=== PATIENT | male | born 1945 ===

== ENCOUNTER → 2017-08-19 | Outpatient (CLI) | payer MEDICARE, OTHER, SELFPAY | PROVIDERS: Family Provider Emergency Medicine; Visit Provider Specialist | DX: R41.3 Other amnesia (principal); G93.49 Other encephalopathy; Z87.898 Personal history of other specified conditions | CPT/HCPCS: 70551 ==

== ENCOUNTER → 2017-11-03 12:20 | Outpatient (CLI) | payer MEDICARE, OTHER, SELFPAY ==
[2017-11-03 12:46] LABS: Basophils # 0.1 K/mm3 (0-0.2); Basophils % 0.7 % (0.1-2.0); Eosinophils # 0.4 K/mm3 (0.0-0.4); Eosinophils % 4.9 % (0.1-12.0); Hemoglobin 15.5 g/dL (14.1-18.0); Lymphocytes # 3.7 K/mm3 (0.7-4.5); Lymphocytes % 42.5 K/mm3 (10-50); Mean Corpuscular HGB Conc 32.3 g/dL (31.8-35.4); Mean Corpuscular Volume 92.9 fl (80-94); Monocytes # 0.4 K/mm3 (0.1-1.0); Monocytes % 4.3 % (1.7-9.3); Neutrophils # 4.1 K/mm3 (1.8-7.8); Neutrophils % 47.7 % (37.0-80.0); Platelet Count 312 K/mm3 (142-424); Red Blood Count 5.17 M/mm3 (4.60-6.20); White Blood Count 8.6 K/mm3 (4.8-10.8)
[2017-11-03 13:21] LABS: Alanine Aminotransferase 53 U/L (12-78); Albumin Level 3.9 gm/dL (3.4-5.0); Alkaline Phosphatase 94 U/L (46-116); Anion Gap 12.7 mEq/L (5-15); Aspartate Amino Transferase 27 U/L (15-37); Bilirubin,Total 0.1 mg/dL (0.2-1.0); Blood Urea Nitrogen 13 mg/dL (7-18); Calcium 8.9 mg/dL (8.5-10.1); Carbon Dioxide 27 mmol/L (21.0-32.0); Chloride 100 mmol/L (98-107); Creatinine,Serum 0.89 mg/dL (0.70-1.30); Estimated Glomerular Filt Rate 84 ml/min (>60); GFR (African American) 101 ML/MIN (>60); Globulin 3.9 gm/dl (1.3-3.2); Glucose 100 mg/dL (74-106); Potassium 4.7 mmoL/L (3.5-5.1); Sodium 135 mmol/L (136-145); Thyroid Stimulating Hormone 3.45 uIU/ml (0.358-3.740); Total Protein,Serum 7.8 gm/dL (6.4-8.2)
[2017-11-03 14:36] LABS: Erythrocyte Sedimentation Rate 16 mm/hr (0-20)
[2017-11-04 15:22] LABS: Folate, Hemolysate 592.9 ng/mL (Not Estab.)
[2017-11-05 12:01] LABS: Folate, RBC 1357 ng/mL (>498); Hematocrit 43.7 % (37.5-51.0); Rapid Plasma Reagin Ab Titer Non Reactive (NonRea<1:1); Vitamin B12 471 pg/mL (232-1245)
[2017-11-07 18:35] LABS: Vitamin B1 146.4 nmol/L (66.5-200.0)
== END ==
PROVIDERS: Nurse Practitioner Family; Visit Provider Specialist
DX: R41.3 Other amnesia (principal)
CPT/HCPCS: 36415; 80053; 82607; 84425; 84443; 85025; 85651; 86592

== ENCOUNTER → 2017-11-09 07:51 | Outpatient (CLI) | payer MEDICARE, OTHER, SELFPAY ==
--- NOTE | 2017-11-09 07:54 | MR_ITS ---
MR cervical spine wo con, MR 3-d myelogram/MRCP Ordering Physician: Doris Kyle MD Patient Age: 72 years: Male HISTORY: ITS.REASON: spinal stenosis Unsteady gait. Confusion. Head MRI brain and July the noted C-spine features. TECHNIQUE: Sagittal STIR, T1, T2, axial T1 and T2. On 1.5T Siemens wide bore MRI. 3-D MR myelogram image set obtained & performed on MRI workstation. Additional sagittal thin section T2 weighted dataset obtained from this latter acquisition as well (---76 CPT) COMPARISON :No previous relevant studies FINDINGS Cranial cervical junction is intact.. C2/3: disc unremarkable C3/4. Marked degenerative disc space narrowing, with ~3 mm degenerative anterolisthesis of C3 on C4. Additional mixed Disc protrusion with some associated posterior spurring is seen to the left.-. This Moderate mixed leftward disc protrusion effaces thecal sac on left and flattens the cervical cord, most pronounced to the leftward.. Moderate Spinal stenosis with central canal narrowing just less than 7 mm AP. Foraminal encroachment and stenosis most evident to the left. Upper normal signal at the cervical cord. Moderate bilateral Facet hypertrophy , also contributes to foraminal stenosis on left, more than right. C4/5. posterior endplate spurring observed most evident to the right... Moderate/generous hard disc effaces thecal sac and the right aspect of the cervical cord, & encroaches upon the right recess and narrows right foramen. Mild facet hypertrophy also contributes to the foraminal encroachment/stenosis on right more than left. Mild/moderate spinal stenosis at this level as well most evident rightward C5-C6. Incomplete segmentation with partial fusion at the C5/6 vertebral body level.. Smooth posteriorly appearance at this level. Adequate spinal canal at this level with no focal remarkable foraminal encroachment. C6/7. Mild to moderate Central disc protrusion- abuts cervical cord with only subtle mild effacement of the cervical cord at midline. There is prominent facet and posterior element hypertrophy just above this level which notably indents the posterior aspect of the thecal sac at 2 near the spinal canal at this level. With yields overall moderate central canal stenosis. C7/T1 disc intact T1/T2 disc intact. T2/T3. Scant central bulge. 3-D MR myelogram image set on demonstrates the indentation upon the thecal sac reflecting spinal stenosis most evident at C3/4 & less evident C4/5 at the upper C-spine.. There is also notable/ moderate spinal stenosis at C 6/7 which appears to be mainly due to the posterior indentation upon the thecal sac IMPRESSION a plain films may be helpful for correlation Cervical spondylosis with Multilevel degenerative disc changes, & facet hypertrophy . Multilevel Spinal stenosis, most pronounced C3/4 & less evident C4/5 at upper C-spine with also moderate spinal stenosis at C 6/7. C3/4. Degenerative Retrolisthesis C3 on 4, with additional leftward Mixed disc protrusion. Resulting Moderate central canal stenosis with foraminal encroachment left> right C4/5. Moderate-generous rightward Hard . Rightward spurring yields generous right foraminal encroachment. Overall Mild to moderate central canal stenosis C6/7:. Mild Central disc bulge, along with more prominent posterior element indentation/narrowing at posterior thecal sac just above this disc level..- Together these features yield moderate central canal stenosis C6/7 Incomplete segmentation C5-C6
== END ==
PROVIDERS: Family Provider Emergency Medicine; PCP Emergency Medicine; Visit Provider Specialist
DX: R41.3 Other amnesia; M48.02 Spinal stenosis, cervical region; M48.00 Spinal stenosis, site unspecified
CPT/HCPCS: 72141; 76376

== ENCOUNTER 2017-11-23 08:51 | Emergency (ER) | payer MEDICARE, OTHER, SELFPAY ==
[2017-11-23 08:56] VITALS: BP 125/77; PULSE 98; RESP 20; TEMP 37.1; O2SAT 95; BMI 20.3
--- NOTE | 2017-11-23 09:03 | XR_ITS ---
XR chest 2V HISTORY: ITS.REASON: dyspnea ORDERING PHYSICIAN: PATIENT AGE: 72 years COMPARISON: 11/14/2015 FINDINGS: The cardiomediastinal silhouette and pulmonary vascularity are within normal limits. There remains hyperinflation with attenuation of peripheral pulmonary vessels consistent with obstructive chronic bronchitis. Faint parenchymal opacity once again noted in the left midlung overlying the fifth rib anteriorly nonspecific and could be due to summation artifact, small nodule, or parenchymal fibrotic change.. No acute bony abnormalities. IMPRESSION: 1. COPD. 2. Persistent small parenchymal opacity left midlung somewhat less apparent and could be due to overlying summation density or small pulmonary nodule. Continued follow-up recommended
[2017-11-23 09:41] LABS: Basophils # 0.1 K/mm3 (0-0.2); Basophils % 0.7 % (0.1-2.0); Eosinophils # 0.1 K/mm3 (0.0-0.4); Eosinophils % 1.2 % (0.1-12.0); Hematocrit 43.8 % (42.0-52.0); Hemoglobin 14.7 g/dL (14.1-18.0); Lymphocytes # 2.5 K/mm3 (0.7-4.5); Lymphocytes % 26.9 K/mm3 (10-50); Mean Corpuscular HGB Conc 33.6 g/dL (31.8-35.4); Mean Corpuscular Hemoglobin 29.9 pg (27.0-31.2); Mean Corpuscular Volume 89.2 fl (80-94); Mean Platelet Volume 7.3 fl (7.4-10.4); Monocytes # 0.7 K/mm3 (0.1-1.0); Monocytes % 7.7 % (1.7-9.3); Neutrophils # 5.9 K/mm3 (1.8-7.8); Neutrophils % 63.6 % (37.0-80.0); Platelet Count 293 K/mm3 (142-424); Red Blood Count 4.92 M/mm3 (4.60-6.20); Red Cell Distribution Width 12.8 % (11.5-17.5); White Blood Count 9.3 K/mm3 (4.8-10.8)
[2017-11-23 09:51] LABS: Alanine Aminotransferase 56 U/L (12-78); Albumin Level 4.1 gm/dL (3.4-5.0); Albumin/Globulin Ratio 1.1 (1.1-1.8); Alkaline Phosphatase 96 U/L (46-116); Aspartate Amino Transferase 40 U/L (15-37); Bilirubin,Total 0.3 mg/dL (0.2-1.0); Blood Urea Nitrogen 12 mg/dL (7-18); Carbon Dioxide 26 mmol/L (21.0-32.0); Chloride 93 mmol/L (98-107); Creatinine Clearance Estimated 63 mL/min (0-300); Creatinine,Serum 0.96 mg/dL (0.70-1.30); Estimated Glomerular Filt Rate 77 ml/min (>60); GFR (African American) 93 ML/MIN (>60); Globulin 3.9 gm/dl (1.3-3.2); Glucose 101 mg/dL (74-106); Sodium 127 mmol/L (136-145)
[2017-11-23 09:56] LABS: Strep Scrn Group A (Rapid) Negative (Negative)
[2017-11-23 10:22] VITALS: BP 135/69; PULSE 93; RESP 16; TEMP 36.5; O2SAT 95
--- NOTE | 2017-11-23 10:42 | [facility].EDGENADL ---
ED Disposition Clinical Impression: Acute bronchitis Qualifiers: Bronchitis organism: unspecified organism Qualified Code(s): J20.9 - Acute bronchitis, unspecified Disposition: Home, Self-Care Condition on Discharge: Good Instructions: DI for Acute Bronchitis Additional Instructions: Please take antibiotics prescribed as directed, follow-up with PCP if not better within 2 days. If unable to see her family doctor and getting worse, please return promptly to this emergency room for reevaluation. Prescriptions: Amoxicillin/Potassium Clav [Augmentin 875-125 Tablet] 1 tab PO Q12H #20 tab Referrals: Lance Dunlap MD [Primary Care Provider] - Time of Disposition: 10:42 - Critical Care Critical Care Time: No Attestation: On 11/23/17, the high probability of a clinically significant, sudden or life threatening deterioration of the following system(s) required my full and direct attention, intervention and personal management. The time I documented below is in addition to time spent performing reported procedures but includes the following listed in this critical care notation. Medical Decision Making - Medical Records Medical records reviewed: Yes: I reviewed the patient's medical records. - [place] Inquiry Pt receiving controlled substance: No Vital Signs: 11/23/17 08:56 11/23/17 10:22 11/23/17 10:53 Temperature 98.8 F 97.7 F 98.5 F Temperature Source Oral Oral Temporal Artery Scan Pulse Rate 80 Pulse Rate [Right Radial] 98 H 93 H Respiratory Rate 20 16 14 Blood Pressure 132/70 Blood Pressure [Right Arm] 125/77 135/69 Blood Pressure Mean [Right Arm] 93 91 Blood Pressure Source Automatic Cuff Blood Pressure Source [Right Arm] Automatic Cuff Automatic Cuff Blood Pressure Position Sitting Blood Pressure Position [Right Arm] Sitting Supine 02 Sat by Pulse Oximetry 95 95 Oxygen Delivery Method Room Air Room Air Room Air - Lab Data Lab results reviewed: Yes: I reviewed the patient's lab results. Lab Results 11/23/17 09:15: Influenza Type A Ag Negative, Influenza Type B Ag Negative, Group A Strep Rapid Negative 11/23/17 09:20: WBC 9.3, RBC 4.92, Hgb 14.7, Hct 43.8, MCV 89.2, MCH 29.9, MCHC 33.6, RDW 12.8, Plt Count 293, MPV 7.3 L, Neut % (Auto) 63.6, Lymph % (Auto) 26.9, [place] % (Auto) 7.7, Eos % (Auto) 1.2, Baso % (Auto) 0.7, Neut # (Auto) 5.9, Lymph # (Auto) 2.5, [place] # (Auto) 0.7, Eos # (Auto) 0.1, Baso # (Auto) 0.1 11/23/17 09:20: Sodium 127 L, Potassium 5.0, Chloride 93 L, Carbon Dioxide 26, Anion Gap 13.0, BUN 12, Creatinine 0.96, Estimated Creat Clear 63, Estimated GFR 77, Est GFR ( Amer) 93, Glucose 101, Calcium 9.0, Total Bilirubin 0.3, AST 40 H, ALT 56, Alkaline Phosphatase 96, Total Protein 8.0, Albumin 4.1, Globulin 3.9 H, Albumin/Globulin Ratio 1.1 Result diagrams: 11/23/17 09:20 11/23/17 09:20 Orders (Tests/Meds): ED MEDICATIONS Discontinued Medications Generic Name Dose Route Start Last Admin Trade Name Freq PRN Reason Stop Dose Admin Aspirin 324 mg 11/23/17 09:03 11/23/17 09:13 Aspirin 81mg Chewable Tablet PO 11/23/17 09:04 324 mg ONCE ONE Administration ORDERS Category Date Time Status Strep Screen Confirmation Stat Micro 11/23/17 09:15 Received - Radiology Data #1 Image(s): Chest Image Reviewed: Yes I reviewed the patient's radiology results, Yes I have reviewed radiologist's interpretation Preliminary Findings: Normal/NAD [place] [id number] [place] [address] XRay Report Signed Patient: Timbo Marino MR#: [id number] : 1945 Acct:[id number] Age/Sex: 72 / M ADM Date: 11/23/17 Loc: ER Attending Dr: Ordering Physician: Konstantin Yoder MD Date of Service: 11/23/17 Procedure(s): XR chest 2V Accession Number(s): [id number] cc: Kishan Prieto MD; Lance Dunlap MD~ XR chest 2V HISTORY: ITS.REASON: dyspn
--- NOTE | 2017-11-23 10:45 | ED_ITS ---
ED Disposition Clinical Impression: Acute bronchitis Qualifiers: Bronchitis organism: unspecified organism Qualified Code(s): J20.9 - Acute bronchitis, unspecified Disposition: Home, Self-Care Condition on Discharge: Good Instructions: DI for Acute Bronchitis Additional Instructions: Please take antibiotics prescribed as directed, follow-up with PCP if not better within 2 days. If unable to see her family doctor and getting worse, please return promptly to this emergency room for reevaluation. Prescriptions: Amoxicillin/Potassium Clav [Augmentin 875-125 Tablet] 1 tab PO Q12H #20 tab Referrals: Lance Dunlap MD [Primary Care Provider] - Time of Disposition: 10:42 - Critical Care Critical Care Time: No Attestation: On 11/23/17, the high probability of a clinically significant, sudden or life threatening deterioration of the following system(s) required my full and direct attention, intervention and personal management. The time I documented below is in addition to time spent performing reported procedures but includes the following listed in this critical care notation. Medical Decision Making - Medical Records Medical records reviewed: Yes: I reviewed the patient's medical records. - [place] Inquiry Pt receiving controlled substance: No Vital Signs: 11/23/17 08:56 11/23/17 10:22 11/23/17 10:53 Temperature 98.8 F 97.7 F 98.5 F Temperature Source Oral Oral Temporal Artery Scan Pulse Rate 80 Pulse Rate [Right Radial] 98 H 93 H Respiratory Rate 20 16 14 Blood Pressure 132/70 Blood Pressure [Right Arm] 125/77 135/69 Blood Pressure Mean [Right Arm] 93 91 Blood Pressure Source Automatic Cuff Blood Pressure Source [Right Arm] Automatic Cuff Automatic Cuff Blood Pressure Position Sitting Blood Pressure Position [Right Arm] Sitting Supine 02 Sat by Pulse Oximetry 95 95 Oxygen Delivery Method Room Air Room Air Room Air - Lab Data Lab results reviewed: Yes: I reviewed the patient's lab results. Lab Results 11/23/17 09:15: Influenza Type A Ag Negative, Influenza Type B Ag Negative, Group A Strep Rapid Negative 11/23/17 09:20: WBC 9.3, RBC 4.92, Hgb 14.7, Hct 43.8, MCV 89.2, MCH 29.9, MCHC 33.6, RDW 12.8, Plt Count 293, MPV 7.3 L, Neut % (Auto) 63.6, Lymph % (Auto) 26.9, [place] % (Auto) 7.7, Eos % (Auto) 1.2, Baso % (Auto) 0.7, Neut # (Auto) 5.9 , Lymph # (Auto) 2.5, [place] # (Auto) 0.7, Eos # (Auto) 0.1, Baso # (Auto) 0.1 11/23/17 09:20: Sodium 127 L, Potassium 5.0, Chloride 93 L, Carbon Dioxide 26, Anion Gap 13.0, BUN 12, Creatinine 0.96, Estimated Creat Clear 63, Estimated GFR 77, Est GFR ( Amer) 93, Glucose 101, Calcium 9.0, Total Bilirubin 0.3 , AST 40 H, ALT 56, Alkaline Phosphatase 96, Total Protein 8.0, Albumin 4.1, Globulin 3.9 H, Albumin/Globulin Ratio 1.1 Result diagrams: 11/23/17 09:20 11/23/17 09:20 Orders (Tests/Meds): ED MEDICATIONS Discontinued Medications Generic Name Dose Route Start Last Admin Trade Name Monserrat PRN Reason Stop Dose Admin Aspirin 324 mg 11/23/17 09:03 11/23/17 09:13 Aspirin 81mg Chewable Tablet PO 11/23/17 09:04 324 mg ONCE ONE Administration ORDERS Category Date Time Status Strep Screen Confirmation Stat Micro 11/23/17 09:15 Received - Radiology Data #1 Image(s): Chest Image Reviewed: Yes I reviewed the
[2017-11-23 10:53] VITALS: BP 132/70; PULSE 80; RESP 14; TEMP 36.9; O2SAT 98
== END 2017-11-23 10:54 | disposition home or self-care (01) ==
PROVIDERS: Emergency Provider Emergency Medicine; Family Provider Emergency Medicine; PCP Emergency Medicine
DX: J20.9 Acute bronchitis, unspecified (principal); F17.210 Nicotine dependence, cigarettes, uncomplicated; G30.9 Alzheimer's disease, unspecified; F02.80 Dementia in other diseases classified elsewhere, unspecified severity, without behavioral disturbance, psychotic disturbance, mood disturbance, and anxiety
CPT/HCPCS: 71046; 80053; 85025; 87275; 87276; 87430; 99283

== ENCOUNTER → 2018-09-27 13:36 | Outpatient (CLI) | payer MEDICARE, OTHER, SELFPAY ==
--- NOTE | 2018-09-27 13:48 | XR_ITS ---
XR chest 2V HISTORY: ITS.REASON: abnormal prior imaging ORDERING PHYSICIAN: Doris Kyle MD PATIENT AGE: 73 years COMPARISON: None FINDINGS: The cardiomediastinal silhouette and pulmonary vascularity are within normal limits. The lungs are clear without infiltrates, suspicious nodules, or pleural effusions. Small nodular density noted over the anterior aspect of both right and left fifth ribs and may be due to nipple shadows. No acute finding No acute bony abnormalities. IMPRESSION: Negative chest, no acute finding
== END ==
PROVIDERS: PCP Emergency Medicine; Visit Provider Specialist
DX: F03.90 Unspecified dementia, unspecified severity, without behavioral disturbance, psychotic disturbance, mood disturbance, and anxiety (principal); F17.200 Nicotine dependence, unspecified, uncomplicated; J44.9 Chronic obstructive pulmonary disease, unspecified; R93.89 Abnormal findings on diagnostic imaging of other specified body structures
CPT/HCPCS: 71046

== ENCOUNTER → 2020-10-29 14:43 | Outpatient (CLI) | payer MEDICARE, OTHER, SELFPAY ==
[2020-10-29 16:03] LABS: Alanine Aminotransferase 119 U/L (12-78); Albumin Level 3.7 g/dl (3.5-5.0); Albumin/Globulin Ratio 1.4 (1.1-1.8); Alkaline Phosphatase 298 U/L (38-126); Anion Gap 10.2 mEq/L (5-15); Aspartate Amino Transferase 113 U/L (17-59); Basophils # 0.1 K/mm3 (0-0.2); Basophils % 0.8 % (0.1-2.0); Bilirubin,Total 0.7 mg/dl (0.2-1.3); Blood Urea Nitrogen 12 mg/dl (9-20); Calcium 9.2 mg/dl (8.4-10.2); Carbon Dioxide 25 mmol/L (22.0-30.0); Chloride 107 mmol/L (98-107); Chol/HDL Ratio 7.2 (1-3.5); Cholesterol 209 mg/dl (140-200); Eosinophils % 0.5 % (0.1-12.0); Estimated Glomerular Filt Rate 94 ml/min (>60); GFR (African American) 114 ML/MIN (>60); Globulin 2.6 g/dL (1.3-3.2); Glucose 109 mg/dl (74-100); HDL Cholesterol 29 mg/dl (40-60); Hematocrit 42.2 % (42.0-52.0); Hemoglobin 13.5 g/dL (14.1-18.0); Lymphocytes # 4.5 K/mm3 (0.7-4.5); Lymphocytes % 55.2 % (10-50); Mean Corpuscular HGB Conc 31.9 g/dL (31.8-35.4); Mean Corpuscular Hemoglobin 28.7 pg (27.0-31.2); Mean Corpuscular Volume 89.9 fl (80-94); Monocytes # 0.4 K/mm3 (0.1-1.0); Monocytes % 4.3 % (1.7-9.3); Neutrophils # 3.2 K/mm3 (1.8-7.8); Neutrophils % 39.3 % (37.0-80.0); Platelet Count 236 K/mm3 (142-424); Potassium 4.2 mmoL/L (3.5-5.1); Red Blood Count 4.69 M/mm3 (4.60-6.20); Red Cell Distribution Width 14.7 % (11.5-17.5); Sodium 138 mmol/L (136-145); Total Protein,Serum 6.3 g/dl (6.3-8.2); Triglycerides 193 mg/dl (30-150); VLDL Cholesterol 39 mg/dL (0-40); White Blood Count 8.1 K/mm3 (4.8-10.8)
[2020-10-29 16:11] LABS: MANUAL DIFFERENTIAL MANUAL DIFFERENTIAL (MANUAL DIFF)
[2020-10-29 16:14] LABS: Direct LDL Cholesterol 137.94 mg/dL (100-129)
[2020-10-29 16:20] LABS: Free T4 (Free Thyroxine) 1.39 ng/dl (0.78-2.19)
[2020-10-29 16:33] LABS: Thyroid Stimulating Hormone 4.06 uIU/mL (0.465-4.68)
[2020-10-29 20:35] LABS: Lymphocytes % 35 % (10-50); Monocytes % 16 % (2-9); Neutrophils % 49 % (42-76); Platelet Estimate Normal; RBC Morphology Normal; Total Cells Counted 100
== END ==
PROVIDERS: Visit Provider Emergency Medicine
DX: I49.9 Cardiac arrhythmia, unspecified (principal); E78.5 Hyperlipidemia, unspecified
CPT/HCPCS: 80053; 80061; 84439; 84443; 85007; 85025

== ENCOUNTER → 2020-11-02 09:46 | Outpatient (CLI) | payer MEDICARE, OTHER, SELFPAY ==
--- NOTE | 2020-11-02 09:52 | XR_ITS ---
PROCEDURE: XR CHEST 2V CLINICAL HISTORY: COPD Shortness of air COMPARISON: CR CXR2V XR chest 2V from 11/23/2017 CR CXR2V XR chest 2V from 09/27/2018 CR XR CHEST 2V from 11/15/2019 FINDINGS: The cardiomediastinal silhouette and pulmonary vascularity are within normal limits. Hyperinflation with attenuation of the peripheral pulmonary vessels consistent with COPD. There has been interval development of a small right pleural effusion. The remaining lungs are clear. No acute bony abnormalities. IMPRESSION: Small right pleural effusion with COPD Dictated by: Kishan Prieto MD 11/02/2020 11:05 Kishan Prieto MD in [place] 11/02/2020 11:05
== END ==
PROVIDERS: PCP Emergency Medicine; Visit Provider Emergency Medicine
DX: J44.9 Chronic obstructive pulmonary disease, unspecified (principal)
CPT/HCPCS: 71046

== ENCOUNTER → 2020-11-09 09:24 | Outpatient (CLI) | payer MEDICARE, OTHER, SELFPAY ==
--- NOTE | 2020-11-09 09:31 | US_ITS ---
PROCEDURE: US LIVER CLINICAL INDICATION: elevated liver enzymes COMPARISON: No exams were available for comparison FINDINGS: PANCREAS: Unremarkable. No obvious mass or abnormal fluid collection. No ductal dilatation LIVER: No focal liver lesions demonstrated. Homogeneous echogenicity. No intrahepatic biliary ductal dilatation evident. There is appropriate direction of blood flow within a non dilated portal vein RIGHT KIDNEY: Unremarkable. Normal size and echogenicity. No hydronephrosis GALLBLADDER: No gallstones, gallbladder wall thickening, pericholecystic fluid, or biliary dilatation. Incidental note made of right pleural effusion IMPRESSION: Right pleural effusion Otherwise negative right upper quadrant ultrasound Dictated by: Kishan Prieto MD 11/09/2020 17:28 Kishan Prieto MD in [place] 11/09/2020 17:28
[2020-11-10 08:34] LABS: Hep A Ab, IgM Negative (Negative); Hepatitis B Core Antibody IgM Negative (Negative); Hepatitis B Surface Antigen Negative (Negative)
[2020-11-10 09:35] LABS: Hepatitis C Antibody >11.0 s/co ratio (0.0-0.9)
== END ==
PROVIDERS: PCP Emergency Medicine; Visit Provider Emergency Medicine
DX: R74.8 Abnormal levels of other serum enzymes (principal); R53.83 Other fatigue
CPT/HCPCS: 36415; 76705; 80074

== ENCOUNTER → 2020-11-19 10:07 | Outpatient (CLI) | payer MEDICARE, OTHER, SELFPAY ==
[2020-11-23 11:12] LABS: HCV Genotype Charge YES; Hepatitis C Genotype 1a (.)
== END ==
PROVIDERS: Visit Provider Emergency Medicine
DX: B19.20 Unspecified viral hepatitis C without hepatic coma (principal)
CPT/HCPCS: 36415; 87522; 87902

== ENCOUNTER → 2021-02-13 10:16 | Outpatient (CLI) | payer MEDICARE, OTHER, SELFPAY ==
[2021-02-16 03:09] LABS: Anion Gap 21.2 mEq/L (5-15); Blood Urea Nitrogen 20 mg/dl (9-20); Carbon Dioxide 16 mmol/L (22.0-30.0); Chloride 107 mmol/L (98-107); Creatinine,Serum 0.78 mg/dl (0.66-1.25); Estimated Glomerular Filt Rate 97 ml/min (>60); GFR (African American) 117 ML/MIN (>60); Potassium 4.2 mmoL/L (3.5-5.1); Sodium 140 mmol/L (136-145)
[2021-02-16 03:10] LABS: Calcium 8.8 mg/dl (8.4-10.2); Glucose 139 mg/dl (74-100)
== END ==
PROVIDERS: Visit Provider Emergency Medicine
DX: Z01.818 Encounter for other preprocedural examination (principal)
CPT/HCPCS: 36415; 80048

== ENCOUNTER → 2021-02-14 09:50 | Outpatient (CLI) | payer MEDICARE, OTHER, SELFPAY ==
--- NOTE | 2021-02-14 10:08 | CT_ITS ---
PROCEDURE: CT ABDOMEN PELVIS W CON CLINICAL INDICATION: upset stomach COMPARISON: No exams were available for comparison TECHNIQUE: IV Contrast: 75ML Isovue 370 Oral Contrast None Axial images obtained with sagittal and coronal reformats. All CT scans at the facility use one or more dose reduction, viz: automated exposure control, ma/kV adjustment per patient size (including targeted exams where dose is matched to indication, i.e. head), or iterative reconstruction technique. FINDINGS: There are moderate to large right and moderate left bilateral pleural effusions with bibasilar compressive atelectasis. Moderate diffuse fatty infiltration of the liver. Spleen is mildly enlarged measuring 16 centimeters in length. Few gallstones are present. Gallbladder appears mildly distended. Pancreas and adrenal glands are normal. Small right renal cortical cyst. No hydronephrosis. No distended large or small bowel or bowel wall thickening. No free intraperitoneal air. Small amount of nonspecific free fluid in the pelvis. Bladder is normal. Prostate gland and seminal vesicles appear unremarkable. Appendix is not definitively seen. No inguinal or femoral hernia. There is no enlarged iliac or inguinal chain lymph node. Some diffuse degenerative change of the lumbar spine is present. No acute bony abnormality. IMPRESSION: Moderate to large right and moderate left bilateral pleural effusions with bibasilar compressive atelectasis. Mild splenomegaly. Moderate diffuse fatty infiltration of the liver. Cholelithiasis. Small right renal cortical cyst. No hydronephrosis. Small amount of nonspecific free fluid in the pelvis. No free intraperitoneal air. Some calcification of the abdominal aorta without aneurysm. Dictated by: Domingo More MD 02/14/2021 12:08 Domingo More MD in [facility] 02/14/2021 12:08
== END ==
PROVIDERS: PCP Emergency Medicine; Visit Provider Emergency Medicine
DX: K30 Functional dyspepsia (principal); R10.9 Unspecified abdominal pain; Z86.19 Personal history of other infectious and parasitic diseases
CPT/HCPCS: 74177; Q9967

== ENCOUNTER → 2021-03-13 07:38 | Outpatient (CLI) | payer MEDICARE, OTHER, SELFPAY ==
--- NOTE | 2021-03-13 07:39 | CA_ITS ---
APPROVED REPORT EXAM: Comprehensive 2D, Doppler, and color-flow Echocardiogram Email Producer: Kiersten Thomas, RT(R) Ht: 5 ft 9 in Wt: 119lbs BSA: 1.66 BP: 123/74 mmHg Indications: CP, COPD, smoker, SOB, preop, dementia, Hep C 2D Dimensions LVOT 1.85 cm (M/F) 1.5-2.5 M-Mode Dimensions RVDd 1.72 cm (0.9-2.6) LA Diam 2.61 cm (1.9-4.0) LVDd 2.63 cm (3.5-5.7) Ao Diam 3.17 cm (2.0-3.7) LVDs 1.19 cm (3.5-5.7) IVSd 0.69 cm (0.6-1.1) PWd 0.69 cm (0.6-1.1) EF (Teich) 87.00% FS 54.80% EDV (Teich) 25.30 mL ESV (Teich) 3.30 mL Left Ventricle Left atrium is normal size, left ventricle is normal size, left ventricle wall thickness is upper limit of the normal there is preserved left ventricular systolic function, visually estimated ejection fraction 55% with no regional wall motion abnormality, diastolic parameters are inconclusive. Right atrium and right ventricle are normal size and contractility. Aortic Valve Aortic valve is minimally thickened and fibrosed, there is no aortic stenosis. There is no aortic insufficiency. Mitral Valve Mitral valve is grossly normal, there is trace mitral regurgitation. Tricuspid Valve Tricuspid grossly normal, there is trace tricuspid regurgitation, tricuspid regurgitation jet velocity is inadequate for calculation of the right ventricular systolic pressure. Pulmonic Valve Pulmonic valve is poorly visualized. Great Vessels Aortic root is normal size. Pericardium No significant pericardial effusion noted. Conclusion 1. Normal left ventricular size, preserved left ventricular systolic function. Visually estimated ejection fraction 55% with no regional wall motion abnormality, diastolic parameters are inconclusive. 2. Trace mitral and tricuspid regurgitation. 3. No significant pericardial effusion noted. Electronically signed by : Oscar Cassidy, 03/14/2021 15:02:24
--- NOTE | 2021-03-13 08:36 | XR_ITS ---
PROCEDURE: XR CHEST 2V CLINICAL HISTORY: pleural effusions COMPARISON: CR CXR2V XR chest 2V from 09/27/2018 CR XR CHEST 2V from 11/15/2019 CR XR CHEST 2V from 11/02/[address] ABDOMEN PELVIS W CON from 02/14/2021 FINDINGS: The cardiomediastinal silhouette and pulmonary vascularity are within normal limits. Medium to large right pleural effusion and medium-sized left pleural effusion with bibasilar atelectatic changes. Probably unchanged from recent abdomen CT of 02/14/2021. Upper lobes are clear. . IMPRESSION: Bilateral pleural effusions with atelectatic changes in the lung bases Dictated by: Kishan Prieto MD 03/13/2021 09:54 Kishan Prieto MD in [place] 03/13/2021 09:54
--- NOTE | 2021-03-13 08:36 | US_ITS ---
PROCEDURE: US GALLBLADDER CLINICAL INDICATION: gallstones COMPARISON: CT CT ABDOMEN PELVIS W CON from 02/14/2021 FINDINGS: Pancreas: Unremarkable/Not well seen Liver: There is mild diffuse coarse echogenicity of the liver nonspecific.. Portal vein is upper limits at 13 mm. There is some turbulent blood flow in the portal vein. There is a nonspecific hyperechoic focus in the liver the just superior to the gallbladder measuring 18 x 11 mm. Right kidney: Unremarkable appearing. No hydronephrosis. Gallbladder: Numerous comet tail artifact noted along the gallbladder wall consistent with adenomyomatosis/cholesterolosis. No gallstones are apparent. No gallbladder wall thickening or pericholecystic fluid. Common bile duct is normal at 3 mm. There is a right-sided pleural effusion. IMPRESSION: No gallstones apparent. Adenomyomatosis with multiple areas of cholesterolosis. Coarse echogenicity of the liver. Portal vein is upper limits of normal with some turbulent flow but overall with appropriate direction. Nonspecific hyperechoic focus of the liver possibly due to a hemangioma Right pleural effusion Dictated by: Kishan Prieto MD 03/13/2021 12:30 Kishan Prieto MD in [place] 03/13/2021 12:30
== END ==
PROVIDERS: PCP Emergency Medicine; Visit Provider Emergency Medicine
DX: Z01.818 Encounter for other preprocedural examination (principal); Z72.0 Tobacco use; R10.10 Upper abdominal pain, unspecified; J44.9 Chronic obstructive pulmonary disease, unspecified
CPT/HCPCS: 71046; 76705; 93306

== ENCOUNTER → 2021-03-28 12:28 | Outpatient (CLI) | payer MEDICARE, OTHER, SELFPAY ==
[2021-03-28 13:10] LABS: Prothrombin Time 11.3 seconds (10.1-12.5)
[2021-03-28 13:22] LABS: INR 0.95 (0.9-1.1)
[2021-03-28 13:57] LABS: Hematocrit 34.6 % (42.0-52.0); Hemoglobin 11.6 g/dL (14.1-18.0); Mean Corpuscular HGB Conc 33.5 g/dL (31.8-35.4); Mean Corpuscular Volume 86.5 fl (80-94); Platelet Count 169 K/mm3 (142-424); Red Cell Distribution Width 14.8 % (11.5-17.5); White Blood Count 4.4 K/mm3 (4.8-10.8)
== END ==
PROVIDERS: Visit Provider Physician Assistant
DX: B18.2 Chronic viral hepatitis C (principal); R79.1 Abnormal coagulation profile
CPT/HCPCS: 36415; 80053; 85014; 85018; 85048; 85049; 85610; 87522

== ENCOUNTER → 2021-04-01 09:48 | Outpatient (CLI) | payer MEDICARE, OTHER, SELFPAY ==
--- NOTE | 2021-04-01 09:53 | US_ITS ---
PROCEDURE: US THORACENTESIS CLINICAL INDICATION: pleural effusion - RIGHT COMPARISON: No exams were available for comparison TECHNIQUE: Informed consent was obtain prior to procedure. After appropriate Time out, under aseptic conditions and local anesthesia with 1% buffered lidocaine using sonographic guidance a 6 [place] Sxtu-V-Qsuplbbc catheter was inserted into the largest pocket of fluid localized in the right posterior chest at the posterior axillary line.. Approximately 1300 mL of serous fluid was drained. The patient began coughing and complaining of chest pain and discomfort. Although the pleural fluid was not completely drained, the catheter was removed due to patient discomfort and continuing cough as there was fear that this may cause a pneumothorax. The patient tolerated the procedure well and left the radiology suite in stable condition. Post thoracentesis radiograph showed no evidence of pneumothorax. FINDINGS: Large right pleural effusion IMPRESSION: Successful sonographic guided paracentesis without complication. Dictated by: Kishan Prieto MD 04/01/2021 17:44 Kishan Prieto MD in [place] 04/01/2021 17:44
--- NOTE | 2021-04-01 12:35 | XR_ITS ---
PROCEDURE: XR CHEST 2V CLINICAL HISTORY: POST THOROCENTESIS COMPARISON: CR XR CHEST 2V from 11/15/2019 CR XR CHEST 2V from 11/02/2020 CR XR CHEST 2V from 03/13/2021 FINDINGS: There has been interval thoracentesis on the right side. Right pleural effusion is decreased in size. There is no evidence of pneumothorax. There are medium-sized bilateral pleural effusions. No acute bony abnormalities. IMPRESSION: Status post right thoracentesis with no evidence of pneumothorax. There are medium-sized residual bilateral effusions. Dictated by: Kishan Prieto MD 04/01/2021 12:50 Kishan Prieto MD in [place] 04/01/2021 12:50
--- NOTE | 2021-04-01 15:30 | XR_ITS ---
PROCEDURE: XR CHEST 2V CLINICAL HISTORY: Thoracentesis follow-up COMPARISON: CR XR CHEST 2V from 11/02/2020 CR XR CHEST 2V from 03/13/2021 CR XR CHEST 2V from 04/01/2021 FINDINGS: Status post right-sided thoracentesis. No evidence of pneumothorax. Small to medium-sized bilateral pleural effusions persists. There is some increasing consolidation in the right lower lobe which may be related to re-expansion edema. No acute bony abnormalities. IMPRESSION: No evidence of pneumothorax status post right-sided thoracentesis. Medium-sized bilateral pleural effusions Developing alveolar opacification in the right lung base possibly due to re-expansion edema Dictated by: Kishan Prieto MD 04/01/2021 16:09 Kishan Prieto MD in [facility] 04/01/2021 16:09
[2021-04-01 19:00] LABS: Appearance,Body Fld. Cloudy; Source, Body Fld. Thoracentesis Fluid
[2021-04-01 19:01] LABS: RBC,Body Fluid < 10 cells/uL (< 10 X 10^3); TNC,Body Fluid 967 cells/uL (< 1000); Volume,Body Fld. 111.5 mL
[2021-04-01 19:04] LABS: Mononuclear WBCs,Body Fluid 97 %; Polynuclear WBC,Body Fluid 3 %
[2021-04-02 12:03] LABS: Albumin, Body Fluid 1.9 g/dL (Not Estab.); Glucose, Body Fluid 112 mg/dL (.); LD, Body Fluid 127 IU/L (.); Protein, Body Fluid 3.2 g/dL (.)
[2021-04-05 13:32] LABS: pH, Body Fluid 7.7 (Not Estab.)
== END ==
PROVIDERS: PCP Emergency Medicine; Visit Provider Internal Medicine Pulmonary Disease
DX: J90 Pleural effusion, not elsewhere classified (principal)
CPT/HCPCS: 32555; 71046; 82042; 82945; 83615; 83986; 84155; 88112; 89051

== ENCOUNTER → 2021-04-03 10:57 | Outpatient (CLI) | payer MEDICARE, OTHER, SELFPAY ==
--- NOTE | 2021-04-03 | XR_ITS ---
PROCEDURE: XR CHEST 2V CLINICAL HISTORY: POST THORACENTESIS COMPARISON: CR XR CHEST 2V from 03/13/2021 CR XR CHEST 2V from 04/01/2021 CR XR CHEST 2V from 04/01/2021 FINDINGS: Status post left-sided thoracentesis. Left pleural effusion no longer apparent. No evidence of pneumothorax. There is consolidation in the right lung base with small right effusion. There are bibasilar atelectatic changes which appears slightly worse. IMPRESSION: 1. Status post left-sided thoracentesis. No evidence of pneumothorax. 2. Right basilar consolidation with small effusion with increasing right basilar atelectasis Dictated by: Kishan Prieto MD 04/03/2021 12:52 Kishan Prieto MD in [facility] 04/03/2021 12:52
--- NOTE | 2021-04-03 11:00 | US_ITS ---
PROCEDURE: US THORACENTESIS CLINICAL INDICATION: pleural effusion - LEFT pleural effusion - LEFT shortness of breath COMPARISON: CT CT ABDOMEN PELVIS W CON from 02/14/2021 TECHNIQUE: Informed consent was obtain prior to procedure. After appropriate Time out, under aseptic conditions and local anesthesia with 1% buffered lidocaine using sonographic guidance a 6 Greek Jdta-D-Hebgjznl catheter was inserted into the lower hemithorax on the left in the posterior axillary line in the largest area of the pleural effusion. Approximately nine hundred mL of serous fluid was drained. The patient tolerated the procedure well and left the radiology suite in stable condition. FINDINGS: Large left pleural effusion which is nearly completely drained Post thoracentesis chest x-ray shows no evidence of pneumothorax. IMPRESSION: Successful sonographic guided left-sided thoracentesis without complication. Dictated by: Kishan Prieto MD 04/03/2021 16:12 Kishan Prieto MD in [place] 04/03/2021 16:12
[2021-04-03 11:39] VITALS: BMI 20.9
[2021-04-03 11:40] VITALS: BP 127/80; PULSE 93; RESP 18; TEMP 36.7; O2SAT 95
[2021-04-03 13:34] LABS: Appearance,Body Fld. Cloudy; Source, Body Fld. Thoracentesis Fluid; Volume,Body Fld. 181 mL
[2021-04-03 13:46] LABS: RBC,Body Fluid 11 cells/uL (< 10 X 10^3); TNC,Body Fluid 1697 cells/uL (< 1000)
[2021-04-03 13:57] LABS: Mononuclear WBCs,Body Fluid 97 %; Polynuclear WBC,Body Fluid 3 %
--- NOTE | 2021-04-03 15:31 | XR_ITS ---
PROCEDURE: XR CHEST 2V CLINICAL HISTORY: POST THORA Follow-up thoracentesis COMPARISON: CR XR CHEST 2V from 04/01/2021 CR XR CHEST 2V from 04/01/2021 CR XR CHEST 2V from 04/03/2021 FINDINGS: No evidence pneumothorax. There remains a small right pleural effusion with right basilar airspace disease. There are minimal atelectatic changes in the left lung base. IMPRESSION: Post thoracentesis on left with no evidence of pneumothorax Persistent small right effusion with right basilar airspace disease Dictated by: Kishan Prieto MD 04/03/2021 15:48 Kishan Prieto MD in [place] 04/03/2021 15:48
[2021-04-04 10:37] LABS: Albumin, Body Fluid 1.5 g/dL (Not Estab.); Glucose, Body Fluid 139 mg/dL (.); LD, Body Fluid 111 IU/L (.); Protein, Body Fluid 2.7 g/dL (.)
[2021-04-05 13:32] LABS: pH, Body Fluid 7.6 (Not Estab.)
== END ==
PROVIDERS: PCP Emergency Medicine; Visit Provider Internal Medicine Pulmonary Disease
DX: J90 Pleural effusion, not elsewhere classified (principal)
CPT/HCPCS: 32555; 71046; 82042; 82945; 83615; 83986; 84155; 88112; 88305; 88342; 89051

== ENCOUNTER → 2021-04-23 10:55 | Outpatient (CLI) | payer MEDICARE, OTHER, SELFPAY ==
[2021-04-23 11:38] LABS: Basophils % 0.6 % (0.1-2.0); Eosinophils # 0.1 K/mm3 (0.0-0.4); Eosinophils % 1.3 % (0.1-12.0); Hematocrit 33.5 % (42.0-52.0); Hemoglobin 10.9 g/dL (14.1-18.0); Lymphocytes # 2.5 K/mm3 (0.7-4.5); Lymphocytes % 39.5 % (10-50); Mean Corpuscular HGB Conc 32.6 g/dL (31.8-35.4); Mean Platelet Volume 8.6 fl (7.4-10.4); Monocytes # 0.2 K/mm3 (0.1-1.0); Monocytes % 3.6 % (1.7-9.3); Neutrophils # 3.5 K/mm3 (1.8-7.8); Neutrophils % 55.1 % (37.0-80.0); Platelet Count 258 K/mm3 (142-424); Red Blood Count 3.77 M/mm3 (4.60-6.20); White Blood Count 6.4 K/mm3 (4.8-10.8)
[2021-04-23 12:27] LABS: INR 0.93 (0.9-1.1)
[2021-04-29 10:06] LABS: Chloride 106 mmol/L (98-107); Potassium 3.7 mmoL/L (3.5-5.1)
[2021-04-29 10:07] LABS: Blood Urea Nitrogen 20 mg/dl (9-20); Creatinine,Serum 0.84 mg/dl (0.66-1.25); Estimated Glomerular Filt Rate 89 ml/min (>60); GFR (African American) 107 ML/MIN (>60); Glucose 103 mg/dl (74-100)
[2021-04-29 10:08] LABS: Albumin Level 3.5 g/dl (3.5-5.0); Albumin/Globulin Ratio 1.1 (1.1-1.8); Alkaline Phosphatase 158 U/L (38-126); Aspartate Amino Transferase 26 U/L (17-59); Bilirubin,Total 0.2 mg/dl (0.2-1.3); Calcium 8.9 mg/dl (8.4-10.2); Globulin 3.1 g/dL (1.3-3.2); Total Protein,Serum 6.6 g/dl (6.3-8.2)
[2021-04-29 10:11] LABS: Sodium 145 mmol/L (136-145)
[2021-04-29 10:12] LABS: Folate >= 20.00 ng/mL; Vitamin B12 443 pg/mL (239-931)
[2021-04-29 10:17] LABS: Ferritin 79 ng/ml (17.9-464)
== END ==
PROVIDERS: Physician Assistant; Visit Provider Specialist
DX: R41.3 Other amnesia (principal); B19.20 Unspecified viral hepatitis C without hepatic coma
CPT/HCPCS: 36415; 80053; 82607; 82728; 82746; 83550; 85025; 85610; 87522

== ENCOUNTER → 2021-06-06 10:41 | Outpatient (CLI) | payer MEDICARE, OTHER, SELFPAY ==
[2021-06-06 11:10] LABS: Hematocrit 36.9 % (42.0-52.0); Mean Corpuscular HGB Conc 32.6 g/dL (31.8-35.4); Mean Corpuscular Hemoglobin 29.7 pg (27.0-31.2); Platelet Count 226 K/mm3 (142-424); Red Blood Count 4.05 M/mm3 (4.60-6.20); Red Cell Distribution Width 15.5 % (11.5-17.5); White Blood Count 4.6 K/mm3 (4.8-10.8)
[2021-06-06 11:23] LABS: INR 1.01 (0.9-1.1); Prothrombin Time 11.4 seconds (10.1-12.5)
[2021-06-06 12:02] LABS: Chloride 102 mmol/L (98-107); Potassium 4.2 mmoL/L (3.5-5.1); Sodium 135 mmol/L (136-145)
[2021-06-06 12:05] LABS: Alanine Aminotransferase 31 U/L (12-78); Albumin Level 3.3 g/dl (3.5-5.0); Albumin/Globulin Ratio 1.2 (1.1-1.8); Alkaline Phosphatase 142 U/L (38-126); Anion Gap 11.2 mEq/L (5-15); Aspartate Amino Transferase 31 U/L (17-59); Bilirubin,Total 0.4 mg/dl (0.2-1.3); Blood Urea Nitrogen 12 mg/dl (9-20); Calcium 9.1 mg/dl (8.4-10.2); Carbon Dioxide 26 mmol/L (22.0-30.0); Estimated Glomerular Filt Rate 131 ml/min (>60); GFR (African American) 158 ML/MIN (>60); Globulin 2.8 g/dL (1.3-3.2); Glucose 93 mg/dl (74-100); Total Protein,Serum 6.1 g/dl (6.3-8.2)
--- NOTE | 2021-07-10 13:07 | SW/DCPLANNER ---
I received a call from Arleth Villegas regarding placement for this patient. Family is looking for LTC for this patient. I have spoke with patients brother (Luis) and he is interested in LTC at [facility]. Patient information has been faxed to Maria Guadalupe with [place]: Maria Guadalupe is willing to accept this patient. Maria Guadalupe stated that she will follow up with patients brother regarding admission. I have updated Arleth Villegas regarding discharge plans.
== END ==
PROVIDERS: Visit Provider Physician Assistant
DX: B18.2 Chronic viral hepatitis C (principal); F17.210 Nicotine dependence, cigarettes, uncomplicated
CPT/HCPCS: 36415; 80053; 85014; 85018; 85048; 85049; 85610; 87522

== ENCOUNTER 2021-08-27 08:37 | Inpatient (IN) | payer MEDICARE, MEDICAID, SELFPAY ==
[2021-08-27] VITALS (14 sets, daily range): BP systolic 93–138; BP diastolic 46–78; PULSE 72–106; RESP 18–24; TEMP 36.6–39.1; O2SAT 92–97; BMI 14.8; BMI 12.9
--- NOTE | 2021-08-27 08:21 | XR_ITS ---
PROCEDURE: XR CHEST PORTABLE CLINICAL HISTORY: hypoxia COMPARISON: CR XR CHEST 2V from 04/03/2021 FINDINGS: The cardiomediastinal silhouette and pulmonary vascularity are within normal limits. Faint areas of infiltrate are present in the right upper lobe, left upper lobe, and left lower lobe consistent with bilateral pneumonia . No acute bony abnormalities. IMPRESSION: Bilateral pneumonia Dictated by: Kishan Prieto MD 08/27/2021 08:53 Kishan Prieto MD in OV 08/27/2021 08:53
--- NOTE | 2021-08-27 08:23 | HMH.EDGENADL ---
ED Disposition Clinical Impression: Pneumonia Qualifiers: Pneumonia type: due to unspecified organism Laterality: unspecified laterality Lung location: unspecified part of lung Qualified Code(s): J18.9 - Pneumonia, unspecified organism Disposition: Admitted as Observation Condition on Discharge: Good - Critical Care Critical Care Time: No Attestation: On , the high probability of a clinically significant, sudden or life threatening deterioration of the following system(s) required my full and direct attention, intervention and personal management. The time I documented below is in addition to time spent performing reported procedures but includes the following listed in this critical care notation. Medical Decision Making - Medical Records Medical records reviewed: Yes: I reviewed the patient's medical records. - [place] Inquiry Pt receiving controlled substance: No Vital Signs: 08/27/21 08:18 08/27/21 09:06 08/27/21 09:39 Temperature 97.8 F 102.4 F H Temperature Source Oral Rectal Pulse Rate 79 Pulse Rate [Right Radial] 106 H Respiratory Rate 22 22 Blood Pressure 94/62 L Blood Pressure [Right Arm] 97/68 L Blood Pressure Mean 70 Blood Pressure Mean [Right Arm] 77 Blood Pressure Source [Right Arm] Automatic Cuff Blood Pressure Position [Right Arm] Supine 02 Sat by Pulse Oximetry 94 L Oxygen Delivery Method Nasal Cannula Oxygen Flow Rate (LPM) 3 08/27/21 10:01 08/27/21 10:30 08/27/21 11:02 Temperature Temperature Source Pulse Rate 101 H 95 H 72 Pulse Rate [Right Radial] Respiratory Rate 22 24 18 Blood Pressure 95/61 L 95/65 L 103/62 L Blood Pressure [Right Arm] Blood Pressure Mean 68 73 79 Blood Pressure Mean [Right Arm] Blood Pressure Source [Right Arm] Blood Pressure Position [Right Arm] 02 Sat by Pulse Oximetry 94 L Oxygen Delivery Method Nasal Cannula Nasal Cannula Oxygen Flow Rate (LPM) 4 4 08/27/21 11:31 08/27/21 12:00 08/27/21 12:31 Temperature Temperature Source Pulse Rate 76 73 Pulse Rate [Right Radial] Respiratory Rate 18 20 18 Blood Pressure 93/61 L 99/46 L 101/64 L Blood Pressure [Right Arm] Blood Pressure Mean 71 74 75 Blood Pressure Mean [Right Arm] Blood Pressure Source [Right Arm] Blood Pressure Position [Right Arm] 02 Sat by Pulse Oximetry 93 L 93 L 94 L Oxygen Delivery Method Nasal Cannula Nasal Cannula Nasal Cannula Oxygen Flow Rate (LPM) 4 4 4 08/27/21 13:03 Temperature Temperature Source Pulse Rate Pulse Rate [Right Radial] Respiratory Rate Blood Pressure Blood Pressure [Right Arm] Blood Pressure Mean Blood Pressure Mean [Right Arm] Blood Pressure Source [Right Arm] Blood Pressure Position [Right Arm] 02 Sat by Pulse Oximetry Oxygen Delivery Method Nasal Cannula Oxygen Flow Rate (LPM) - Lab Data Lab Results 08/27/21 08:20: Specimen Source Right brachial, O2 % 4l, ABG pH 7.49 H, ABG pCO2 28.3 L, ABG pO2 54.8 L, ABG HCO3 21.3 L, ABG Total CO2 22.1 L, ABG O2 Saturation 91, ABG Base Excess -2.0, Kishan Test Acceptable 08/27/21 08:45: SARS-CoV-2 (PCR) Not detected, Influenza A Untype (PCR) Not detected, Influenza Type B (PCR) Not detected 08/27/21 08:50: WBC 12.7 H, RBC 4.47 L, Hgb 13.1 L, Hct 40.3 L, MCV 90.2, MCH 29.3, MCHC 32.4, RDW 14.4, Plt Count 315, MPV 9.1, Neut % (Auto) 77.7, Lymph % (Auto) 19.5, Davison % (Auto) 1.9, Eos % (Auto) 0.2, Baso % (Auto) 0.7, Neut # (Auto) 9.9 H, Lymph # (Auto) 2.5, Davison # (Auto) 0.2, Eos # (Auto) 0.0, Baso # (Auto) 0.1 08/27/21 08:50: Sodium 157 H*, Potassium 4.0, Chloride 122 H, Carbon Dioxide 23, Anion Gap 16.0 H, BUN 63 H, Creatinine 1.80 H, Estimated Creat Clear 23, Estimated GFR 37 L, Est GFR ( Amer) 44 L, Glucose 113 H, Calcium 8.4, Total Bilirubin 0.5, AST 82 H, ALT 35, Alkaline Phosphatase 158 H, Total Protein 6.5, Albumin 3.7, Globulin 2.8, Albumin/Globulin Ratio 1.3 08/27/21 08:50: Lactate 1.2 Result diagrams: 08/27/21 08:50 1
[2021-08-27 09:02] LABS: Coronavirus 19, PCR Not Detected (NotDetected); Influenza A, PCR Not Detected (NotDetected); Influenza B, PCR Not Detected (NotDetected)
[2021-08-27 09:05] LABS: Basophils # 0.1 K/mm3 (0-0.2); Basophils % 0.7 % (0.1-2.0); Eosinophils % 0.2 % (0.1-12.0); Hematocrit 40.3 % (42.0-52.0); Hemoglobin 13.1 g/dL (14.1-18.0); Lymphocytes # 2.5 K/mm3 (0.7-4.5); Lymphocytes % 19.5 % (10-50); Mean Corpuscular HGB Conc 32.4 g/dL (31.8-35.4); Mean Corpuscular Hemoglobin 29.3 pg (27.0-31.2); Mean Corpuscular Volume 90.2 fl (80-94); Mean Platelet Volume 9.1 fl (7.4-10.4); Monocytes # 0.2 K/mm3 (0.1-1.0); Monocytes % 1.9 % (1.7-9.3); Neutrophils # 9.9 K/mm3 (1.8-7.8); Neutrophils % 77.7 % (37.0-80.0); Platelet Count 315 K/mm3 (142-424); Red Blood Count 4.47 M/mm3 (4.60-6.20); Red Cell Distribution Width 14.4 % (11.5-17.5); White Blood Count 12.7 K/mm3 (4.8-10.8)
[2021-08-27 09:13] LABS: ABG HCO3 21.3 mmhg (22.0-26.0); ABG Oxygen Saturation 91 % (90-100); ABG PCO2 28.3 mmhg (35.0-45.0); ABG PH 7.49 mmol/L (7.35-7.45); ABG PO2 54.8 mmhg (80-100); ABG TCO2 22.1 mmhg (23-27)
[2021-08-27 09:13] LABS: Albumin Level 3.7 g/dl (3.5-5.0); Chloride 122 mmol/L (98-107)
[2021-08-27 09:15] LABS: Lactic Acid 1.2 mmol/L (0.7-2.1)
[2021-08-27 09:16] LABS: Allen's Test Acceptable; Oxygen 4L %; Source Right Brachial
[2021-08-27 09:17] LABS: Alanine Aminotransferase 35 U/L (12-78); Aspartate Amino Transferase 82 U/L (17-59); Blood Urea Nitrogen 63 mg/dl (9-20); Creatinine Clearance Estimated 23 mL/min (50-200); Estimated Glomerular Filt Rate 37 ml/min (>60); GFR (African American) 44 ML/MIN (>60)
[2021-08-27 09:18] LABS: Alkaline Phosphatase 158 U/L (38-126); Calcium 8.4 mg/dl (8.4-10.2); Glucose 113 mg/dl (74-100)
[2021-08-27 09:51] LABS: Albumin/Globulin Ratio 1.3 (1.1-1.8); Bilirubin,Total 0.5 mg/dl (0.2-1.3); Carbon Dioxide 23 mmol/L (22.0-30.0); Globulin 2.8 g/dL (1.3-3.2); Total Protein,Serum 6.5 g/dl (6.3-8.2)
[2021-08-27 10:01] LABS: Sodium 157 mmol/L (136-145)
--- NOTE | 2021-08-27 10:01 | PC.NURSE ---
critical sodium called per yony in lab, reported to ANNEMARIE PARDO at this time
--- NOTE | 2021-08-27 10:08 | PC.NURSE ---
waiting structural steel erection supervisor back from Dr. Robin who is covering for Dr. Dunlap per office staff
--- NOTE | 2021-08-27 10:45 | PC.NURSE ---
contacted Dr. Robin office back, states he is in still in the room with a pt, they will give him the message to call ER when he gets out.
--- NOTE | 2021-08-27 11:35 | PC.NURSE ---
ANNEMARIE PAROD spoke with Dr. Robin at this time
--- NOTE | 2021-08-27 19:18 | HMH.HP ---
*Admission Date: 08/27/21 *Chief complaint: hypoxia and pneumonia *History of present illness: 76 yo long-term resident w/dementia admitted through ER for hypoxia and pneumonia. He is cachectic, demented, and unable to provide details pertaining to his situation. Workup included CXR: CLINICAL HISTORY: hypoxia COMPARISON: CR XR CHEST 2V from 04/03/2021 FINDINGS: The cardiomediastinal silhouette and pulmonary vascularity are within normal limits. Faint areas of infiltrate are present in the right upper lobe, left upper lobe, and left lower lobe consistent with bilateral pneumonia . No acute bony abnormalities. IMPRESSION: Bilateral pneumonia He is admitted for iv abx, oxygen, and further evaluation. [facility] History Medical History: Reports:: Chronic Obstructive Pulmonary Disease (COPD), Dementia, Hypertension Denies:: Cancer, Diabetes Mellitus Type 1, Diabetes Mellitus Type 2, MRSA, Seizures *Have you ever received a pneumonia vaccine?: Yes *Have you received a flu vaccine this season?: Yes (06/28) Other Medical History: Reports: Liver Disease. Denies: Blood Transfusion Reaction Other Surgeries: Yes: No Previous Surgery, Colonoscopy, Other Amputation: No Fractures: Yes (RIGHT HIP) - *Social History Smoking Status: Former smoker Tobacco Type: cigarettes # Packs/Day (cigarettes): 1 Alcohol Intake: former Alcohol Intake Frequency:: other Substance Use Type: denies use *Occupational Status:: disabled Housing: house Household Members: friend(s) *Travel in the last 8 weeks: None Family Hx:: Unable to obtain Review of Systems - Review of Systems Review of systems:: unable to obtain Meds Home Medications Medication Instructions Recorded Confirmed Type albuterol sulfate 90 mcg/actuation 2 puff INHALATION Q8H PRN #8.5 g 12/28/20 08/27/21 Rx aerosol inhaler multivitamin 1 tab PO DAILY 12/28/20 08/27/21 History ipratropium 0.5 mg-albuterol 3 mg 3 ml INHALATION Q4-6H PRN #180 ml 03/13/21 08/27/21 Rx (2.5 mg base)/3 mL nebulization soln sofosbuvir 400 mg-velpatasvir 100 1 tab PO DAILY tab 03/22/21 08/27/21 History mg tablet memantine 10 mg tablet 10 mg PO HS 30 Days #30 tab 04/25/21 08/27/21 Rx acetaminophen 500 mg tablet 500 mg PO Q4H PRN #90 tab 07/16/21 08/27/21 Rx aluminum hydrox-magnesium carb 95 30 ml PO TID PRN #355 ml 07/16/21 08/27/21 Rx mg-358 mg/15 mL oral suspension donepezil 10 mg tablet 10 mg PO BID #90 tab 07/16/21 08/27/21 Rx fluticasone furoate 100 1 inh INHALATION DAILY 07/16/21 08/27/21 History mcg-vilanterol 25 mcg/dose inhalation powder lactulose 10 gram oral packet 30 ml PO DAILY PRN each 07/16/21 08/27/21 History Furosemide [Furosemide 20mg Tab*] 20 mg PO DAILY 08/27/21 08/27/21 History Allergies Allergy/AdvReac Type Severity Reaction Status Date / Time No Known Allergies Allergy Verified 07/30/21 13:23 Exam Vital signs and Labs for Last 24 Hours: Temp Pulse Resp BP Pulse Ox 99.1 F 91 H 18 108/53 L 95 08/27/21 16:34 08/27/21 16:34 08/27/21 16:34 08/27/21 16:34 08/27/21 16:34 Laboratory Results - last 24 hr 08/27/21 08:20: Specimen Source Right brachial, O2 % 4l, ABG pH 7.49 H, ABG pCO2 28.3 L, ABG pO2 54.8 L, ABG HCO3 21.3 L, ABG Total CO2 22.1 L, ABG O2 Saturation 91, ABG Base Excess -2.0, Kishan Test Acceptable 08/27/21 08:45: SARS-CoV-2 (PCR) Not detected, Influenza A Untype (PCR) Not detected, Influenza Type B (PCR) Not detected 08/27/21 08:50: WBC 12.7 H, RBC 4.47 L, Hgb 13.1 L, Hct 40.3 L, MCV 90.2, MCH 29.3, MCHC 32.4, RDW 14.4, Plt Count 315, MPV 9.1, Neut % (Auto) 77.7, Lymph % (Auto) 19.5, [place]ford % (Auto) 1.9, Eos % (Auto) 0.2, Baso % (Auto) 0.7, Neut # (Auto) 9.9 H, Lymph # (Auto) 2.5, [place] # (Auto) 0.2, Eos # (Auto) 0.0, Baso # (Auto) 0.1 08/27/21 08:50: Sodium 157 H*, Potassium 4.0, Chloride 122 H, Carbon Dioxide 23, Anion Gap 16.0 H, BUN 63 H, Creatinine 1.80 H, Estimated Creat Clear 23, Estimated GFR 37 L, Est GFR (
[2021-08-28] VITALS (8 sets, daily range): BP systolic 93–115; BP diastolic 59–86; PULSE 49–87; RESP 17–20; TEMP 36.6–37; O2SAT 90–100; BMI 13.1
--- NOTE | 2021-08-28 02:50 | PC.NURSE ---
PT IS NOT ALERT OR ABLE TO ANSWER QUESTIONS. WILL MOAN AT TIMES. PT IS CONSTANTLY MOVING HIMSELF AROUND IN BED. MITTENS APPLIED FOR PT SAFETY, TOLERATED WELL. F/C PRESENT DRAINING BRIGHT YELLOW URINE. PT HAS SLEPT MAJORITY OF SHIFT. WILL GET AGITATED AT TIMES. VSS WILL CONTINUE TO MONITOR.
--- NOTE | 2021-08-28 05:21 | PC.NURSE ---
ASSISTED WITH BATHING PT. COMPLETELY DEPENDENT. TOLERATED WELL. FULL LINEN CHANGE PROVIDED. TURNED TO R SIDE. PT SEEMS TO BE FAVORING LEFT. HEEL PROTECTORS IN PLACE.
[2021-08-28 06:07] LABS: Chloride 119 mmol/L (98-107)
[2021-08-28 06:08] LABS: Potassium 3.5 mmoL/L (3.5-5.1)
[2021-08-28 06:10] LABS: Alanine Aminotransferase 36 U/L (12-78); Albumin Level 3.2 g/dl (3.5-5.0); Albumin/Globulin Ratio 1.1 (1.1-1.8); Alkaline Phosphatase 104 U/L (38-126); Anion Gap 11.5 mEq/L (5-15); Aspartate Amino Transferase 69 U/L (17-59); Bilirubin,Total 0.4 mg/dl (0.2-1.3); Blood Urea Nitrogen 53 mg/dl (9-20); Calcium 8.2 mg/dl (8.4-10.2); Carbon Dioxide 26 mmol/L (22.0-30.0); Creatinine Clearance Estimated 30 mL/min (50-200); Estimated Glomerular Filt Rate 59 ml/min (>60); GFR (African American) 71 ML/MIN (>60); Globulin 2.8 g/dL (1.3-3.2); Glucose 113 mg/dl (74-100)
[2021-08-28 06:11] LABS: Ammonia < 9 umol/L (9-30)
[2021-08-28 06:13] LABS: Basophils # 0.1 K/mm3 (0-0.2); Basophils % 0.6 % (0.1-2.0); Eosinophils % 0.3 % (0.1-12.0); Hematocrit 38.5 % (42.0-52.0); Hemoglobin 12.3 g/dL (14.1-18.0); Lymphocytes # 3.3 K/mm3 (0.7-4.5); Mean Corpuscular HGB Conc 32.1 g/dL (31.8-35.4); Mean Corpuscular Hemoglobin 29.7 pg (27.0-31.2); Mean Corpuscular Volume 92.5 fl (80-94); Mean Platelet Volume 9.5 fl (7.4-10.4); Monocytes # 0.2 K/mm3 (0.1-1.0); Monocytes % 1.4 % (1.7-9.3); Neutrophils # 8.7 K/mm3 (1.8-7.8); Neutrophils % 70.8 % (37.0-80.0); Platelet Count 302 K/mm3 (142-424); Red Blood Count 4.16 M/mm3 (4.60-6.20); Red Cell Distribution Width 14.1 % (11.5-17.5); White Blood Count 12.3 K/mm3 (4.8-10.8)
[2021-08-28 06:28] LABS: Sodium 153 mmol/L (136-145)
--- NOTE | 2021-08-28 07:29 | P.CONPHA_ITS ---
[facility] VTE Monitoring - Patient Demographics Admission date: 08/27/21 Report Date: 08/28/21 Time: 07:29 Allergies/Adverse Reactions: Patient Allergies No Known Allergies Allergy (Verified 07/30/21 13:23) Height: 1.78 m Weight: 41.504 kg Patient Problems: Current Active Problems Pneumonia (Acute) Hypernatremia (Acute) Weakness (Acute) Hx of fracture of right hip (Acute) Low body mass index (BMI) (Acute) COPD (chronic obstructive pulmonary disease) (Chronic) Dementia arising in the senium and presenium (Chronic) - VTE Risk Labs: VTE Related Lab Results Hgb 12.3 g/dL (14.1-18.0) L 08/28/21 05:55 Hct 38.5 % (42.0-52.0) L 08/28/21 05:55 Plt Count 302 K/mm3 (142-424) 08/28/21 05:55 BUN 53 mg/dl (9-20) H 08/28/21 05:55 Creatinine 1.20 mg/dl (0.66-1.25) D 08/28/21 05:55 Estimated Creat Clear 30 mL/min (50-200) 08/28/21 05:55 - Prophylaxis VTE Prophylaxis Ordered?: Yes Types of VTE Prophylaxis: TEDS Knee High Location of Applied Device: Bilateral Lower Extremeties
--- NOTE | 2021-08-28 09:51 | DIET.NUTRFU ---
Reviewed patients PMH and rounded with providers this AM. He appears malnourished, his shoulder bony are visible. High risk for weight loss, dehydration and skin breakdown. CBW is 90#, last office visit available was 07/30 with weight of 106#, down 14.7# or 13% in 30 days- significant wt loss. Lives at [place], diet there is MSOFT with thin liquids and health shakes. Currently NPO awaiting for LEAD SOFTWARE ARCHITECT evaluation. Has hx of dementia and sundowns. May need assistance with oral intake. Based on weight hx, oral intake may not be meeting needs. May need to review TF wishes with patient and family.
--- NOTE | 2021-08-28 10:21 | HMH.ACPN2 ---
Internal Medicine - PN: Subj *Date: 08/28/21 *Time: 09:10 Interval history: pt restless but answers when spoken to Exam Vital signs and Labs for Last 24 Hours: Temp Pulse Resp BP Pulse Ox 98.0 F 77 18 103/74 L 100 08/28/21 08:00 08/28/21 08:32 08/28/21 08:32 08/28/21 08:00 08/28/21 08:00 Laboratory Results - last 24 hr 08/27/21 08:45: SARS-CoV-2 (PCR) Not detected, Influenza A Untype (PCR) Not detected, Influenza Type B (PCR) Not detected 08/28/21 05:55: WBC 12.3 H, RBC 4.16 L, Hgb 12.3 L, Hct 38.5 L, MCV 92.5, MCH 29.7, MCHC 32.1, RDW 14.1, Plt Count 302, MPV 9.5, Neut % (Auto) 70.8, Lymph % (Auto) 27.0, [place] % (Auto) 1.4 L, Eos % (Auto) 0.3, Baso % (Auto) 0.6, Neut # (Auto) 8.7 H, Lymph # (Auto) 3.3, [place] # (Auto) 0.2, Eos # (Auto) 0.0, Baso # (Auto) 0.1 08/28/21 05:55: Sodium 153 H*, Potassium 3.5, Chloride 119 H, Carbon Dioxide 26, Anion Gap 11.5, BUN 53 H, Creatinine 1.20 D, Estimated Creat Clear 30, Estimated GFR 59, Est GFR ( Amer) 71 D, Glucose 113 H, Calcium 8.2 L, Total Bilirubin 0.4, AST 69 H, ALT 36, Alkaline Phosphatase 104, Total Protein 6.0 L, Albumin 3.2 L D, Globulin 2.8, Albumin/Globulin Ratio 1.1 08/28/21 05:55: Ammonia < 9 L I & O for Last 24 hours: Intake & Output 08/25/21 08/26/21 08/27/21 08/28/21 11:59 11:59 11:59 11:59 Output Total 275 / 275 Balance -275 / -275 Weight 103 lb 91 lb 7.869 oz - Constitutional no acute distress, thin, chronically ill appearing - *Routine HEENT Exam Head: Present: normocephalic Eye: Present: PERRL ENT: Present: mucous membranes moist - *Routine Neck Exam Present: supple. Absent: lymphadenopathy - *Routine Respiratory Exam Present: rhonchi - *Routine Cardiovascular Exam Present: RRR - *Routine Abdominal Exam Present: soft, normoactive bowel sounds. Absent: tenderness - *Routine Extremities Exam Absent: cyanosis, clubbing, edema - *Routine Skin Exam Present: warm. Absent: rash - *Routine Neurological Exam Present: alert, altered mental status Assessment and Plan (1) Pneumonia Status: Acute Qualifiers: Pneumonia type: due to unspecified organism Laterality: unspecified laterality Lung location: unspecified part of lung Qualified Code(s): J18.9 - Pneumonia, unspecified organism Category: Medical Code(s): J18.9 - Pneumonia, unspecified organism (2) Hx of fracture of right hip Status: Acute Category: Medical Code(s): Z87.81 - Personal history of (healed) traumatic fracture (3) Low body mass index (BMI) Status: Acute Category: Medical (4) Weakness Status: Acute Category: Medical Code(s): R53.1 - Weakness (5) COPD (chronic obstructive pulmonary disease) Status: Chronic Qualifiers: COPD type: emphysema Emphysema type: unspecified Qualified Code(s): J43.9 - Emphysema, unspecified Category: Medical Code(s): J44.9 - Chronic obstructive pulmonary disease, unspecified (6) Dementia arising in the senium and presenium Status: Chronic Category: Medical Code(s): F03.90 - Unspecified dementia without behavioral disturbance (7) Hypernatremia Status: Acute Category: Medical Code(s): E87.0 - Hyperosmolality and hypernatremia (8) Severe protein-calorie malnutrition Status: Acute Category: Medical Code(s): E43 - Unspecified severe protein-calorie malnutrition - Assessment and plan all Dx Assessment and Plan for all problems:: rounded with neus all orders per dr arias kimball
--- NOTE | 2021-08-28 10:29 | HMH.PHAINT ---
Addendum entered and electronically signed by Tete Tatum PharmD 08/28/21 10:31: verified pt is NOT taking Epclusa for hepatitis C with nurse Lexi from [place] Original Note: verified home medication list using [facility] MAR
--- NOTE | 2021-08-28 10:40 | DIET.NUTRFU ---
RD spoke to nursing staff at [facility] to verfiy weight hx. and diet. He was on MSOFT with thin, fortified. Weight on 08/21 was 103#. Wt loss is 11.5# or 11% in 7 days. [facility] also indicated he was having a recent decline, staff was having to assist with his meals and he was consuming less. [facility] was also considering having ELEMENTARY SCHOOL TUTOR there re-eval for safest diet. Spoke to ELEMENTARY SCHOOL TUTOR here at [facility] they are aware of dietary concerns. RD will follow-up with the safest diet. Until then he is receiving dextrose IV
--- NOTE | 2021-08-28 11:19 | DIET.NUTRFU ---
This RD spoke to Ana the COTTONSEED MEAT PRESSER from [place] who had seen him in the past. She reports he has dentures but does not understand what to do with them d/t advanced dementia. She had put him on MSOFT d/t chewing issues without wearing dentures and unable to follow swallowing cues. She did not feel he was at aspiration risks. She also indicated a sore recently in his oral cavity causing him pain- nursing made aware. Ana did recommended if able a modified barium would be beneficial because he may not be able to follow directions at bedside. Will continue to follow up with COTTONSEED MEAT PRESSER and their recommendations
--- NOTE | 2021-08-28 11:31 | PC.NURSE ---
Spoke to pt's POA, Luis Marino (brother). Pt is to remain a full code, brother is OK w/ a feeding tube if need be and POA gave this RN consent to take any pictures if needed.
--- NOTE | 2021-08-28 17:07 | HMH.SLDYSPHA ---
Speech & Language Evaluation Speech/Language Dysphagia Evaluation Start: 08/28/21 16:26 Freq: ONCE Status: Active Protocol: Document 08/28/21 16:32 CMAY (Rec: 08/28/21 17:07 CMAY [id number]) Dysphagia Assess/Goals/Plan Assessment Date of Evaluation: 08/28/21 Evaluation Type Initial Certification Assessment/Problems Dysphagia Does Patient Qualify for Service No Qualify/Failure Comment Patient does not qualify for ST services at this time based on the results of today's evaluation. Dietary changes were implemented for patient's safety during intake. Patient will be monitored by PCP and NSG for possible completion of MBSS in the future if warranted. Recommendations PHYSICIAN CERTIFICATION: The specified therapy services are required, authorized, and reviewed every 30 days. Diet Recommendations Pureed Liquid Type Recommendations Normal/Thin SL Swallow Guidelines Assist w/all meals,High aspiration risk,Crush meds as allowed*,Oral care pre/post meals Crush Meds Crush all meds Dysphagia Swallow Precautions/Strategies Sitting Upright (90 deg), Liquids from Straw,Liquids from Spoon,Small Bites and Sips Comment Liquids from spoon or straw only. No liquids from cup. Plan Pt/Guardian verbally ack understanding No: PCP and NSG notified of of dx/prognosis/goals results; Patient confused at this time G -code Required No Education Instructions provided Education provided to NSG regarding swallowing safety strategies to implement such as sitting patient upright, providing 1:1 feeding assistance, crushing meds as applicable, providing liquids from straw and spoon only (no drinks via cup), and providing oral care and suction post meals. Pt/Caregiver able to recall information Unable to ind. understand Reinforcement needed Yes: Patient is confused at this time Speech & Language HPI History Present Illness Description of Patient Problem Pneumonia and hypoxia Rehab Services Assessed
[2021-08-29] VITALS (7 sets, daily range): BP systolic 91–117; BP diastolic 60–80; PULSE 66–96; RESP 17–20; TEMP 36.4–37.1; O2SAT 91–98; BMI 13.1
--- NOTE | 2021-08-29 04:21 | PC.NURSE ---
PT REMAINS UNABLE TO ANSWER QUESTIONS OR COMMUNICATE WITH STAFF. HOWEVER, PT IS SAYING MORE WORDS THIS SHIFT ALONG WITH MOANING. MOVES AROUND IN BED CONTINUOUSLY. HAS HAD NO C/O THUS FAR. PT DID HAVE MODERATE BM AT BEGINNING OF SHIFT. BRIEF CHANGED AND KEPT CLEAN AND DRY. NEW LINENS PROVIDED. F/C PRESENT DRAINING BRIGHT YELLOW URINE. PT DID SWALLOW MEDS CRUSHED IN APPLESAUCE, TOLERATED WELL. PT HAS INTERMITTENT NON-PRODUCTIVE COUGH T/O NIGHT. VSS WILL CONTINUE TO MONITOR.
--- NOTE | 2021-08-29 06:55 | PC.NURSE ---
ATTEMPTED TO ASSIST PT WITH EATING BREAKFAST AND PT IS REFUSING.
--- NOTE | 2021-08-29 07:11 | PC.WOUNDNOTE ---
SCABBING NOTED TO FIRST THREE TOES ON R FOOT COOL TO TOUCH AND PURPLE IN COLOR, L BIG TOE SKIN TEAR PRESENT TO L JACOBO SCAB PRESENT TO L KNEE SOME SCABBING NOTED TO R JACOBO
[2021-08-29 07:31] LABS: Basophils % 0.4 % (0.1-2.0); Eosinophils % 0.4 % (0.1-12.0); Hematocrit 34.6 % (42.0-52.0); Hemoglobin 11.3 g/dL (14.1-18.0); Lymphocytes # 2.7 K/mm3 (0.7-4.5); Lymphocytes % 26.8 % (10-50); Mean Corpuscular HGB Conc 32.6 g/dL (31.8-35.4); Mean Corpuscular Hemoglobin 29.9 pg (27.0-31.2); Mean Corpuscular Volume 91.6 fl (80-94); Mean Platelet Volume 9.5 fl (7.4-10.4); Monocytes # 0.3 K/mm3 (0.1-1.0); Monocytes % 2.9 % (1.7-9.3); Neutrophils % 69.6 % (37.0-80.0); Platelet Count 264 K/mm3 (142-424); Red Blood Count 3.78 M/mm3 (4.60-6.20); Red Cell Distribution Width 14.2 % (11.5-17.5); White Blood Count 10.1 K/mm3 (4.8-10.8)
[2021-08-29 07:32] LABS: Chloride 111 mmol/L (98-107)
[2021-08-29 07:33] LABS: Potassium 4.1 mmoL/L (3.5-5.1); Sodium 141 mmol/L (136-145)
[2021-08-29 07:35] LABS: Blood Urea Nitrogen 47 mg/dl (9-20); Creatinine Clearance Estimated 36 mL/min (50-200); Estimated Glomerular Filt Rate 72 ml/min (>60); GFR (African American) 88 ML/MIN (>60)
[2021-08-29 07:36] LABS: Anion Gap 12.1 mEq/L (5-15); Carbon Dioxide 22 mmol/L (22.0-30.0); Glucose 107 mg/dl (74-100)
--- NOTE | 2021-08-29 09:09 | HMH.PTWOUND ---
Rehab Inpt Wound Evaluation Rehab IP Wound Evaluation Start: 08/29/21 08:44 Freq: ONCE Status: Active Protocol: Document 08/29/21 09:01 CAMILLA (Rec: 08/29/21 09:09 CAMILLA [id number]) Rehab PT Wound Assessment Patient Status Premedicated Prior to Dressing Change No Subjective Subjective Pt is a resident of [facility] - pt has severly advanced dementia and is non- communicative - yesterday pt was agitated and aggressive w/ staff but is more docile today - pt's immobility flexed posture and severe lack of mantation prompted low cisco score and wound care consult Wound Left Christie Wound Type Skin Tear Wound Bed Appearance Beefy Red Percentage Granulated (%) 100 Dressing Status Open to Air Plan/Recommendation Comment Pt has scrape on L christie and multiple healing small wounds on foot and R christie. Foot wounds appear arterial in nature and christie wounds from fall at nsg home from w/c. Wound prevention for sacral coccygeal area in place and Q2 pressure relief and turns being performed by nursing. No specialized wound care required at this time. Nsg to cont w/ pressure relief, wound care team to continue to be available for consultation . Eval Complexity Eval Charge Codes 38339 - High Complexity G-codes PT Current Status Other PT/OT Status PT Current Status Modifier CN-At least 100% impaired, limited or restricted PT Goal Status Other PT/OT Status PT Goal Status Modifer CN-At least 100% impaired, limited or restricted PHYSICIAN CERTIFICATION: I certify the specified therapy services for Timbo Marino are required, authorized, and reviewed every 30 days.
--- NOTE | 2021-08-29 09:31 | HMH.ACPN2 ---
Internal Medicine - PN: Subj *Date: 08/29/21 *Time: 19:53 Interval history: 76-year-old male patient resting in bed quietly with eyes closed, awakens to verbal stimuli. He is more alert today than yesterday, he denies any needs/concerns at present. Current oxygenation 96% on room air. He was unable to complete swallowing eval yesterday due to inability to follow directions Exam Vital signs and Labs for Last 24 Hours: Temp Pulse Resp BP Pulse Ox 97.5 F L 67 17 101/80 L 98 08/29/21 08:00 08/29/21 08:00 08/29/21 08:00 08/29/21 08:00 08/29/21 08:00 Laboratory Results - last 24 hr 08/29/21 06:28: WBC 10.1, RBC 3.78 L, Hgb 11.3 L, Hct 34.6 L, MCV 91.6, MCH 29.9, MCHC 32.6, RDW 14.2, Plt Count 264, MPV 9.5, Neut % (Auto) 69.6, Lymph % (Auto) 26.8, [place] % (Auto) 2.9, Eos % (Auto) 0.4, Baso % (Auto) 0.4, Neut # (Auto) 7.0, Lymph # (Auto) 2.7, [place] # (Auto) 0.3, Eos # (Auto) 0.0, Baso # (Auto) 0.0 08/29/21 06:28: Sodium 141, Potassium 4.1, Chloride 111 H, Carbon Dioxide 22, Anion Gap 12.1, BUN 47 H, Creatinine 1.00, Estimated Creat Clear 36, Estimated GFR 72, Est GFR ( Amer) 88 D, Glucose 107 H, Calcium 8.0 L I & O for Last 24 hours: Intake & Output 08/26/21 08/27/21 08/28/21 08/29/21 23:59 23:59 23:59 23:59 Intake Total 240 / 240 Output Total 1075 / 1075 350 / 350 Balance -835 / -835 -350 / -350 Weight 90 lb 6.656 oz 91 lb 7.869 oz 91 lb 7.869 oz Microbiology Reports for the Last 24 Hours: Microbiology 08/27/21 08:50 Blood Blood Culture - Preliminary NO GROWTH AFTER 48 HOURS 08/27/21 08:50 Blood Blood Culture - Preliminary NO GROWTH AFTER 48 HOURS - Constitutional no acute distress, cachectic, chronically ill appearing - *Routine HEENT Exam Head: Present: normocephalic Eye: Present: EOMI ENT: Present: mucous membranes dry - *Routine Neck Exam Present: trachea midline. Absent: tracheal deviation - *Routine Respiratory Exam Present: accessory muscle use, rhonchi - *Routine Cardiovascular Exam Present: RRR - *Routine Abdominal Exam Present: soft, normoactive bowel sounds. Absent: tenderness - *Routine Extremities Exam Present: full ROM, pulses intact. Absent: cyanosis, clubbing - *Routine Skin Exam Present: intact, dry. Absent: cyanosis, erythema - *Routine Neurological Exam Present: alert, altered mental status - Routine Psychiatric Exam Present: unable to assess Assessment and Plan (1) Pneumonia Status: Acute Qualifiers: Pneumonia type: due to unspecified organism Laterality: unspecified laterality Lung location: unspecified part of lung Qualified Code(s): J18.9 - Pneumonia, unspecified organism Category: Medical Code(s): J18.9 - Pneumonia, unspecified organism (2) Hx of fracture of right hip Status: Acute Category: Medical Code(s): Z87.81 - Personal history of (healed) traumatic fracture (3) Low body mass index (BMI) Status: Acute Category: Medical (4) Weakness Status: Acute Category: Medical Code(s): R53.1 - Weakness (5) COPD (chronic obstructive pulmonary disease) Status: Chronic Qualifiers: COPD type: emphysema Emphysema type: unspecified Qualified Code(s): J43.9 - Emphysema, unspecified Category: Medical Code(s): J44.9 - Chronic obstructive pulmonary disease, unspecified (6) Dementia arising in the senium and presenium Status: Chronic Category: Medical Code(s): F03.90 - Unspecified dementia without behavioral disturbance (7) Hypernatremia Status: Acute Category: Medical Code(s): E87.0 - Hyperosmolality and hypernatremia (8) Severe protein-calorie malnutrition Status: Acute Category: Medical Code(s): E43 - Unspecified severe protein-calorie malnutrition - Assessment and plan all Dx Assessment and Plan for all problems:: Rounded with Dr. Robin, all orders per Dr. Robin: 1. Continue current medi
--- NOTE | 2021-08-29 11:02 | DIET.NUTRFU ---
SCUTCH[employer] TENDER evaluated patient for oral diet, he was unable to undergo a MBS. Based on bedside swallow eval he was able to tolerate pureed with thin liquids. He consumed 75% of dinner last night, nursing reported 1:1 assist with meals but patient did seem eager to eat and did participate is trying to hold glass. He did refuse breakfast this AM. Wound care saw him, no breakdown to coccyx area at this time, increased risk d/t poor nutritional status, preventive dressing in place. Ensure ordered BID to help meet nutritional needs. Family was approached yesterday for TF wishes and they agreed TF if needed. Discussed PEG consult today during rounds to better met his nutritional needs. If appropriate once placed will initiate TF to meet 100% of needs and use oral meals for pleasure. For weight gain goals: Jevity 1.5 at 20ml/hr to start with goal rate of 35ml/hr providing 1207kcal, 50gm protein and 611ml free water and 20ml flush/hr providing 490ml for total fluid of 1100ml/day, adjust flush based on labs and oral intake.
--- NOTE | 2021-08-29 16:33 | PC.NURSE ---
PT IS RESTING IN BED. ALERT TO SELF ONLY. PT IS TOLERATING PUREED DIET WELL. PT ATE 75% OF HIS LUNCH AND TOOK A FEW SIPS OF ENSURE. TURNED AND REPOSITIONED IN BED. ORAL CARE PROVIDED. LUNG SOUNDS HAVE SCATTERED RHONCHI. ABDOMEN SOFT/NON TENDER WITH ACTIVE BOWEL SOUNDS. HEEL PROTECTORS IN PLACE. SKIN TEAR NOTED TO THE LT JACOBO. WILL CONTINUE TO MONITOR.
[2021-08-30 04:00] VITALS: BP 110/58; PULSE 88; RESP 20; TEMP 36.6; O2SAT 95
[2021-08-30 04:59] VITALS: BMI 13.1
[2021-08-30 06:53] LABS: Basophils % 0.5 % (0.1-2.0); Eosinophils # 0.1 K/mm3 (0.0-0.4); Eosinophils % 0.5 % (0.1-12.0); Hematocrit 34.4 % (42.0-52.0); Lymphocytes # 3.3 K/mm3 (0.7-4.5); Lymphocytes % 36.4 % (10-50); Mean Corpuscular HGB Conc 31.9 g/dL (31.8-35.4); Mean Corpuscular Hemoglobin 27.8 pg (27.0-31.2); Mean Corpuscular Volume 87.3 fl (80-94); Mean Platelet Volume 10.6 fl (7.4-10.4); Monocytes # 0.2 K/mm3 (0.1-1.0); Monocytes % 2.4 % (1.7-9.3); Neutrophils # 5.5 K/mm3 (1.8-7.8); Neutrophils % 60.2 % (37.0-80.0); Platelet Count 232 K/mm3 (142-424); Red Blood Count 3.94 M/mm3 (4.60-6.20); Red Cell Distribution Width 14.1 % (11.5-17.5); White Blood Count 9.1 K/mm3 (4.8-10.8)
[2021-08-30 07:02] LABS: Chloride 109 mmol/L (98-107)
[2021-08-30 07:03] LABS: Potassium 3.6 mmoL/L (3.5-5.1); Sodium 136 mmol/L (136-145)
[2021-08-30 07:05] LABS: Blood Urea Nitrogen 31 mg/dl (9-20); Creatinine Clearance Estimated 37 mL/min (50-200); Estimated Glomerular Filt Rate 94 ml/min (>60); GFR (African American) 113 ML/MIN (>60)
[2021-08-30 07:06] LABS: Anion Gap 8.6 mEq/L (5-15); Calcium 7.6 mg/dl (8.4-10.2); Carbon Dioxide 22 mmol/L (22.0-30.0); Glucose 84 mg/dl (74-100)
[2021-08-30 07:50] VITALS: BP 122/78; PULSE 68; RESP 20; TEMP 35.7; O2SAT 93
--- NOTE | 2021-08-30 08:50 | HMH.GSCON ---
*Admission Date: 08/27/21 *Reason for consult:: Feeding tube placement *History of present illness: Patient is a 76-year-old demented long-term patient who was admitted 3 days ago with hypoxia and findings of bilateral pneumonias. He had undergone speech therapy evaluation 2 days ago and it was felt he was high aspiration risk. The recommendations were given. Patient had been on a mechanical soft diet at the long-term. Patient has been on a pur?ed diet during this hospitalization. He ate 10% pureed diet this morning. Consultation was obtained today for feeding tube placement. Review of Systems - Review of Systems Review of systems:: unable to obtain [facility] History I have reviewed the patient's past medical history: Yes Medical History: Reports:: Chronic Obstructive Pulmonary Disease (COPD), Dementia, Hypertension Denies:: Cancer, Diabetes Mellitus Type 1, Diabetes Mellitus Type 2, MRSA, Seizures *Have you ever received a pneumonia vaccine?: Yes *Have you received a flu vaccine this season?: Yes (06/28) Other Medical History: Reports: Liver Disease. Denies: Blood Transfusion Reaction Other Surgeries: Yes: No Previous Surgery, Colonoscopy, Other Amputation: No Fractures: Yes (RIGHT HIP) - *Social History Smoking Status: Former smoker Tobacco Type: cigarettes # Packs/Day (cigarettes): 1 Alcohol Intake: former Alcohol Intake Frequency:: other Substance Use Type: denies use *Occupational Status:: disabled Housing: house Household Members: friend(s) *Travel in the last 8 weeks: None Family Hx:: Unable to obtain [facility] Home Medications Medication Instructions Recorded Confirmed Type albuterol sulfate 90 mcg/actuation 2 puff INHALATION Q8H PRN #8.5 g 12/28/20 08/27/21 Rx aerosol inhaler multivitamin 1 tab PO DAILY 12/28/20 08/27/21 History acetaminophen 500 mg tablet 500 mg PO Q4H PRN #90 tab 07/16/21 08/27/21 Rx aluminum hydrox-magnesium carb 95 30 ml PO TID PRN #355 ml 07/16/21 08/27/21 Rx mg-358 mg/15 mL oral suspension fluticasone furoate 100 1 inh INHALATION DAILY 07/16/21 08/27/21 History mcg-vilanterol 25 mcg/dose inhalation powder lactulose 10 gram oral packet 30 ml PO DAILY PRN each 07/16/21 08/27/21 History Furosemide [Furosemide 20mg Tab*] 20 mg PO DAILY 08/27/21 08/27/21 History Donepezil HCl [Aricept 10mg 10 mg PO HS 08/28/21 08/28/21 History tablet] Ipratropium/Albuterol Sulfate 3 ml INHALATION Q4HP PRN 08/28/21 08/28/21 History [Duoneb 3mL neb] Memantine HCl 10 mg PO BID 08/28/21 08/28/21 History Allergies Allergy/AdvReac Type Severity Reaction Status Date / Time No Known Allergies Allergy Verified 07/30/21 13:23 Exam Vital signs and Labs for Last 24 Hours: Temp Pulse Resp BP Pulse Ox 96.3 F L 68 20 122/78 93 L 08/30/21 07:50 08/30/21 07:50 08/30/21 07:50 08/30/21 07:50 08/30/21 07:50 Laboratory Results - last 24 hr 08/30/21 05:27: WBC 9.1, RBC 3.94 L, Hgb 11.0 L, Hct 34.4 L, MCV 87.3, MCH 27.8, MCHC 31.9, RDW 14.1, Plt Count 232, MPV 10.6 H, Neut % (Auto) 60.2, Lymph % (Auto) 36.4, [place] % (Auto) 2.4, Eos % (Auto) 0.5, Baso % (Auto) 0.5, Neut # (Auto) 5.5, Lymph # (Auto) 3.3, [place] # (Auto) 0.2, Eos # (Auto) 0.1, Baso # (Auto) 0.0 08/30/21 05:27: Sodium 136, Potassium 3.6, Chloride 109 H, Carbon Dioxide 22, Anion Gap 8.6, BUN 31 H D, Creatinine 0.80, Estimated Creat Clear 37, Estimated GFR 94, Est GFR ( Amer) 113 D, Glucose 84 D, Calcium 7.6 L I & O for Last 24 hours: Intake & Output 08/27/21 08/28/21 08/29/21 08/30/21 11:59 11:59 11:59 11:59 Intake Total 240 / 240 835 / 835 Output Total 275 / 275 1150 / 1150 1850 / 1850 Balance -275 / -275 -910 / -910 -1015 / -1015 Weight 103 lb 91 lb 7.869 oz 91 lb 7.869 oz 92 lb 4.8 oz Microbiology Reports for the Last 24 Hours: Microbiology 08/27/21 08:50 Blood Blood Culture - Preliminary NO GROWTH AFTER 48 HOURS 08/27/21 08:50 Blood Blood Cul
--- NOTE | 2021-08-30 09:49 | HMH.ACPN2 ---
Internal Medicine - PN: Subj *Date: 08/30/21 *Time: 13:17 Interval history: 76-year-old cachectic man resting in bed no apparent distress. Patient's mother was contacted this morning and gave permission for G-tube placement for feeding. Upon assessment patient's left great toe discolored, left foot cool to touch with no pedal pulse, cardiology consulted. Patient does not respond to verbal stimuli but will moan when turned. Patient's condition discussed with son per physician. Exam Vital signs and Labs for Last 24 Hours: Temp Pulse Resp BP Pulse Ox 96.3 F L 68 20 122/78 93 L 08/30/21 07:50 08/30/21 07:50 08/30/21 07:50 08/30/21 07:50 08/30/21 07:50 Laboratory Results - last 24 hr 08/30/21 05:27: WBC 9.1, RBC 3.94 L, Hgb 11.0 L, Hct 34.4 L, MCV 87.3, MCH 27.8, MCHC 31.9, RDW 14.1, Plt Count 232, MPV 10.6 H, Neut % (Auto) 60.2, Lymph % (Auto) 36.4, [place] % (Auto) 2.4, Eos % (Auto) 0.5, Baso % (Auto) 0.5, Neut # (Auto) 5.5, Lymph # (Auto) 3.3, [place] # (Auto) 0.2, Eos # (Auto) 0.1, Baso # (Auto) 0.0 08/30/21 05:27: Sodium 136, Potassium 3.6, Chloride 109 H, Carbon Dioxide 22, Anion Gap 8.6, BUN 31 H D, Creatinine 0.80, Estimated Creat Clear 37, Estimated GFR 94, Est GFR ( Amer) 113 D, Glucose 84 D, Calcium 7.6 L I & O for Last 24 hours: Intake & Output 08/27/21 08/28/21 08/29/21 08/30/21 23:59 23:59 23:59 23:59 Intake Total 240 / 240 835 / 835 0 / 0 Output Total 1075 / 1075 1400 / 1400 800 / 800 Balance -835 / -835 -565 / -565 -800 / -800 Weight 90 lb 6.656 oz 91 lb 7.869 oz 91 lb 7.869 oz 92 lb 4.8 oz Microbiology Reports for the Last 24 Hours: Microbiology 08/27/21 08:50 Blood Blood Culture - Preliminary NO GROWTH AFTER 48 HOURS 08/27/21 08:50 Blood Blood Culture - Preliminary NO GROWTH AFTER 48 HOURS - *Routine Extremities Exam Present: cyanosis, extremity cold to touch. Absent: edema Comments: L foot cyanosis L foot cool to touch No left pedal pulse can be palpated - *Routine Skin Exam Present: intact, cyanosis, dry. Absent: warm Comments: L foot cyanosis L foot cool to touch No left pedal pulse can be palpated - *Routine Neurological Exam Present: altered mental status - Routine Psychiatric Exam Present: unable to assess Assessment and Plan (1) Pneumonia Status: Acute Qualifiers: Pneumonia type: due to unspecified organism Laterality: unspecified laterality Lung location: unspecified part of lung Qualified Code(s): J18.9 - Pneumonia, unspecified organism Category: Medical Code(s): J18.9 - Pneumonia, unspecified organism (2) Hx of fracture of right hip Status: Acute Category: Medical Code(s): Z87.81 - Personal history of (healed) traumatic fracture (3) Low body mass index (BMI) Status: Acute Category: Medical (4) Weakness Status: Acute Category: Medical Code(s): R53.1 - Weakness (5) COPD (chronic obstructive pulmonary disease) Status: Chronic Qualifiers: COPD type: emphysema Emphysema type: unspecified Qualified Code(s): J43.9 - Emphysema, unspecified Category: Medical Code(s): J44.9 - Chronic obstructive pulmonary disease, unspecified (6) Dementia arising in the senium and presenium Status: Chronic Category: Medical Code(s): F03.90 - Unspecified dementia without behavioral disturbance (7) Hypernatremia Status: Acute Category: Medical Code(s): E87.0 - Hyperosmolality and hypernatremia (8) Severe protein-calorie malnutrition Status: Acute Category: Medical Code(s): E43 - Unspecified severe protein-calorie malnutrition - Assessment and plan all Dx Assessment and Plan for all problems:: Rounded with Dr. Robin, all orders per documents: 1. We will get ABIs 2. Cardiology consult 3. Left foot x-ray
--- NOTE | 2021-08-30 09:54 | XR_ITS ---
PROCEDURE: XR FOOT LT 2V CLINICAL INDICATION: Pain, bruising COMPARISON: No exams were available for comparison FINDINGS: Mild osteoarthritic changes are present at the 1st MTP joint. Only two views are submitted. There is somewhat abnormal orientation at the base of the fourth metatarsal with questionable fracture at the proximal aspect of the 4th metatarsal. Dedicated three view study or CT may provide further evaluation. The tarsal bones also overlap and are not adequately assessed on the AP view. Other findings:None. IMPRESSION: Questionable fracture at the proximal aspect of the 4th metatarsal. Incomplete evaluation of the tarsal bones and base of the metatarsals Dictated by: Kishan Prieto MD 08/30/2021 10:31 Kishan Prieto MD in [place] 08/30/2021 10:31
--- NOTE | 2021-08-30 10:41 | SW/DCPLANNER ---
PATIENT ADMITTED INTO THE HOSPITAL FROM [facility].. HE ADMITTED WITH A DIAGNOSIS OF PNEUMONIA AND HYPERNATREMIA.. THERE WAS SOME QUESTION THAT FAMILY WANTED PATIENT TO HAVE A G-TUBE R/T PATIENT BEING SO SEVERELY MALNOURISHED, BUT THIS IS NOT GOING TO TAKE PLACE UNTIL THURSDAY IF IT HAPPENS THEN.. SON IS AT BEDSIDE AND NOW HAS CONCERNS THAT THIS MAY NOT BE THE RIGHT THING TO DO... PATIENT WILL REMAIN IN THE ACUTE HOSPITAL OVER THE WEEKEND AND MD WILL COLLABORATE WITH SURGEON TO SEE IF THAT IS GOING TO HAPPEN..
--- NOTE | 2021-08-30 10:50 | HMH.ACPN ---
Internal Medicine - PN: Subj *Date: 08/30/21 *Time: 10:50 Exam Vital signs and Labs for Last 24 Hours: Temp Pulse Resp BP Pulse Ox 96.3 F L 68 20 122/78 93 L 08/30/21 07:50 08/30/21 07:50 08/30/21 07:50 08/30/21 07:50 08/30/21 07:50 Laboratory Results - last 24 hr 08/30/21 05:27: WBC 9.1, RBC 3.94 L, Hgb 11.0 L, Hct 34.4 L, MCV 87.3, MCH 27.8, MCHC 31.9, RDW 14.1, Plt Count 232, MPV 10.6 H, Neut % (Auto) 60.2, Lymph % (Auto) 36.4, [place] % (Auto) 2.4, Eos % (Auto) 0.5, Baso % (Auto) 0.5, Neut # (Auto) 5.5, Lymph # (Auto) 3.3, [place] # (Auto) 0.2, Eos # (Auto) 0.1, Baso # (Auto) 0.0 08/30/21 05:27: Sodium 136, Potassium 3.6, Chloride 109 H, Carbon Dioxide 22, Anion Gap 8.6, BUN 31 H D, Creatinine 0.80, Estimated Creat Clear 37, Estimated GFR 94, Est GFR ( Amer) 113 D, Glucose 84 D, Calcium 7.6 L I & O for Last 24 hours: Intake & Output 08/27/21 08/28/21 08/29/21 08/30/21 23:59 23:59 23:59 23:59 Intake Total 240 / 240 835 / 835 0 / 0 Output Total 1075 / 1075 1400 / 1400 800 / 800 Balance -835 / -835 -565 / -565 -800 / -800 Weight 41.012 kg 41.5 kg 41.5 kg 41.867 kg Microbiology Reports for the Last 24 Hours: Microbiology 08/27/21 08:50 Blood Blood Culture - Preliminary NO GROWTH AFTER 48 HOURS 08/27/21 08:50 Blood Blood Culture - Preliminary NO GROWTH AFTER 48 HOURS Assessment and Plan (1) Pneumonia Status: Acute Qualifiers: Pneumonia type: due to unspecified organism Laterality: unspecified laterality Lung location: unspecified part of lung Qualified Code(s): J18.9 - Pneumonia, unspecified organism Category: Medical Code(s): J18.9 - Pneumonia, unspecified organism (2) Hx of fracture of right hip Status: Acute Category: Medical Code(s): Z87.81 - Personal history of (healed) traumatic fracture (3) Low body mass index (BMI) Status: Acute Category: Medical (4) Weakness Status: Acute Category: Medical Code(s): R53.1 - Weakness (5) COPD (chronic obstructive pulmonary disease) Status: Chronic Qualifiers: COPD type: emphysema Emphysema type: unspecified Qualified Code(s): J43.9 - Emphysema, unspecified Category: Medical Code(s): J44.9 - Chronic obstructive pulmonary disease, unspecified (6) Dementia arising in the senium and presenium Status: Chronic Category: Medical Code(s): F03.90 - Unspecified dementia without behavioral disturbance (7) Hypernatremia Status: Acute Category: Medical Code(s): E87.0 - Hyperosmolality and hypernatremia (8) Severe protein-calorie malnutrition Status: Acute Category: Medical Code(s): E43 - Unspecified severe protein-calorie malnutrition The patient's infection will respond to the chosen ABx?: Yes Is the patient receiving the right drug, dose, and route?: Yes Could a more targeted ABx be ordered?: No
--- NOTE | 2021-08-30 11:21 | HMH.CNCARD ---
History of Present Illness Consult date: 08/30/21 Requesting physician: Clarke Robin Chief complaint: purple toes History of present illness: This is a 76-year-old white gentleman who was admitted to the hospital from a assisted for hypoxia and pneumonia. The patient is cachectic and demented. He is contracted in bed as well. The patient opens his eyes to very loud verbal stimuli but he is not answering any my questions or following any commands. He did moan 1 time but other than that the patient made no verbal communication with me. I am unable to get any history or review of systems from the patient. All of his information is coming from his chart and past medical records. Cardiology was consulted for a purple left great toe. On exam the patient does have purple digits on the left great toe and toes to, 3 and 4. He appears to be in no distress. His vital signs are stable this morning. The patient has not been taking any oral intake. He has been consulted for tube placement. [facility] History I have reviewed the patient's past medical history: Yes Medical History: Reports:: Chronic Obstructive Pulmonary Disease (COPD), Dementia, Hypertension Denies:: Cancer, Diabetes Mellitus Type 1, Diabetes Mellitus Type 2, MRSA, Seizures *Have you ever received a pneumonia vaccine?: Yes *Have you received a flu vaccine this season?: Yes (06/28) Other Medical History: Reports: Liver Disease. Denies: Blood Transfusion Reaction Other Surgeries: Yes: No Previous Surgery, Colonoscopy, Other Amputation: No Fractures: Yes (RIGHT HIP) - *Social History Smoking Status: Former smoker Tobacco Type: cigarettes # Packs/Day (cigarettes): 1 Alcohol Intake: former Alcohol Intake Frequency:: other Substance Use Type: denies use *Occupational Status:: disabled Housing: house Household Members: friend(s) *Travel in the last 8 weeks: None Family Hx:: Unable to obtain Meds Home Medications Medication Instructions Recorded Confirmed Type albuterol sulfate 90 mcg/actuation 2 puff INHALATION Q8H PRN #8.5 g 12/28/20 08/27/21 Rx aerosol inhaler multivitamin 1 tab PO DAILY 12/28/20 08/27/21 History acetaminophen 500 mg tablet 500 mg PO Q4H PRN #90 tab 07/16/21 08/27/21 Rx aluminum hydrox-magnesium carb 95 30 ml PO TID PRN #355 ml 07/16/21 08/27/21 Rx mg-358 mg/15 mL oral suspension fluticasone furoate 100 1 inh INHALATION DAILY 07/16/21 08/27/21 History mcg-vilanterol 25 mcg/dose inhalation powder lactulose 10 gram oral packet 30 ml PO DAILY PRN each 07/16/21 08/27/21 History Furosemide [Furosemide 20mg Tab*] 20 mg PO DAILY 08/27/21 08/27/21 History Donepezil HCl [Aricept 10mg 10 mg PO HS 08/28/21 08/28/21 History tablet] Ipratropium/Albuterol Sulfate 3 ml INHALATION Q4HP PRN 08/28/21 08/28/21 History [Duoneb 3mL neb] Memantine HCl 10 mg PO BID 08/28/21 08/28/21 History Allergies Allergy/AdvReac Type Severity Reaction Status Date / Time No Known Allergies Allergy Verified 07/30/21 13:23 Exam Vital signs and Labs for Last 24 Hours: Temp Pulse Resp BP Pulse Ox 96.3 F L 68 20 122/78 93 L 08/30/21 07:50 08/30/21 07:50 08/30/21 07:50 08/30/21 07:50 08/30/21 07:50 Laboratory Results - last 24 hr 08/30/21 05:27: WBC 9.1, RBC 3.94 L, Hgb 11.0 L, Hct 34.4 L, MCV 87.3, MCH 27.8, MCHC 31.9, RDW 14.1, Plt Count 232, MPV 10.6 H, Neut % (Auto) 60.2, Lymph % (Auto) 36.4, [facility] % (Auto) 2.4, Eos % (Auto) 0.5, Baso % (Auto) 0.5, Neut # (Auto) 5.5, Lymph # (Auto) 3.3, [facility] # (Auto) 0.2, Eos # (Auto) 0.1, Baso # (Auto) 0.0 08/30/21 05:27: Sodium 136, Potassium 3.6, Chloride 109 H, Carbon Dioxide 22, Anion Gap 8.6, BUN 31 H D, Creatinine 0.80, Estimated Creat Clear 37, Estimated GFR 94, Est GFR ( Amer) 113 D, Glucose 84 D, Calcium 7.6 L I & O for Last 24 hours: Intake & Output 08/27/21 08/28/21 08/29/21 08/30/21 23:59 23:59 23:59 23:59 Intake Total 240 / 240 835 / 835 0 / 0 Output Total 1075 / 1075 1400 / 1400
[2021-08-30 11:46] VITALS: BP 98/58; PULSE 86; RESP 18; O2SAT 89
--- NOTE | 2021-08-30 13:09 | DIET.NUTRFU ---
Saw patient this morning during rounds. Family present and is now unsure of POC. Originally planning to consult sx of PEG placement. Not available till Thursday so family would like to think about it and review on Thursday. Patient continues on pureed diet consumed 100% of dinner but only 10% of breakfast. Continues to require 1:1 assist with meals. Ensure is ordered BID but only consuming sips at this time. Also receiving dextrose 5% 1L/day providing 200kcal/day. He is not meeting nutritional needs and continues to be at risk for weight loss, malnutrition and skin breakdown. Labs reviewed: Na 136, K 3.6, BUN 31H (improving), Cr 0.8 and glucose 84. Will continue to consult family for plan of care/wishes for aggressive vs. comfort.
[2021-08-30 15:36] VITALS: BP 82/34; PULSE 78; RESP 18; TEMP 36.1; O2SAT 97
--- NOTE | 2021-08-30 18:12 | PC.NURSE ---
PT IS RESTING IN BED. ALERT BUT NOT ORIENTED. TURNED AND REPOSITIONED IN BED. PT ATE VERY MINIMAL THIS SHIFT FOR BREAKFAST AND DINNER BUT DID EAT HIS LUNCH WELL. ORAL CARE PROVIDED. PT CONTINUES TO HAVE DISCOLORATION NOTED TO THE LEFT TOES. CARDIOLOGY CONSULTED. HEEL PROTECTORS NOTED. REDNESS NOTED TO THE BUTTOCKS (DRESSING INTACT). LUNG SOUNDS HAVE SCATTERED RHONCHI. ABDOMEN SOFT/NON TENDER WITH ACTIVE BOWEL SOUNDS. PT HAD A LARGE/SOFT BM THIS SHIFT. WILL CONTINUE TO MONITOR.
[2021-08-30 20:00] VITALS: BP 153/63; PULSE 85; RESP 14; TEMP 36.7; O2SAT 95
[2021-08-31] VITALS: BP 104/70; PULSE 78; RESP 16; TEMP 37.1; O2SAT 97
--- NOTE | 2021-08-31 03:10 | PC.NURSE ---
PT ALERT TO VOICE, NOT ORIENTED. TOLERATING RA WELL. PT HAS SLEPT MAJORITY OF SHIFT. TURNING SELF BACK AND FORTH IN BED, STAFF ASSISTING Q2H. PT REMAINS INCONTINENT, BRIEF IN PLACE. F/C DRAINING BRIGHT YELLOW URINE. HEEL PROTECTORS IN PLACE. MITTENS IN PLACE FOR PT SAFETY. BED SAFETY IS APPLIED. PT TOLERATED NIGHT-TIME MEDS CRUSHED IN APPLESAUCE. VSS WILL CONTINUE TO MONITOR.
[2021-08-31 05:00] VITALS: BP 109/49; PULSE 80; RESP 14; TEMP 36.9; O2SAT 90; BMI 14.8
[2021-08-31 06:59] LABS: Basophils % 0.5 % (0.1-2.0); Eosinophils # 0.1 K/mm3 (0.0-0.4); Eosinophils % 0.8 % (0.1-12.0); Hemoglobin 11.2 g/dL (14.1-18.0); Lymphocytes # 2.1 K/mm3 (0.7-4.5); Lymphocytes % 29.4 % (10-50); Mean Corpuscular HGB Conc 31.2 g/dL (31.8-35.4); Mean Corpuscular Hemoglobin 28.1 pg (27.0-31.2); Mean Corpuscular Volume 89.9 fl (80-94); Mean Platelet Volume 8.9 fl (7.4-10.4); Monocytes # 0.2 K/mm3 (0.1-1.0); Monocytes % 2.8 % (1.7-9.3); Neutrophils # 4.6 K/mm3 (1.8-7.8); Neutrophils % 66.5 % (37.0-80.0); Platelet Count 255 K/mm3 (142-424)
[2021-08-31 07:30] LABS: Anion Gap 7.2 mEq/L (5-15); Blood Urea Nitrogen 19 mg/dl (9-20); Calcium 7.7 mg/dl (8.4-10.2); Carbon Dioxide 23 mmol/L (22.0-30.0); Chloride 106 mmol/L (98-107); Creatinine Clearance Estimated 41 mL/min (50-200); Estimated Glomerular Filt Rate 109 ml/min (>60); GFR (African American) 132 ML/MIN (>60); Glucose 95 mg/dl (74-100); Potassium 3.2 mmoL/L (3.5-5.1); Sodium 133 mmol/L (136-145)
[2021-08-31 08:00] VITALS: BP 125/62; PULSE 75; RESP 18; TEMP 36.9; O2SAT 92
--- NOTE | 2021-08-31 14:27 | HMH.ACPN2 ---
Internal Medicine - PN: Subj *Date: 08/31/21 *Time: 14:27 Interval history: Not much interval change. Patient remains confused and disoriented. X-rays of the feet are reviewed. Films were prompted by a free of ecchymosis. There is a probable metatarsal fracture. Cardiology notes are reviewed Exam Vital signs and Labs for Last 24 Hours: Temp Pulse Resp BP Pulse Ox 98.4 F 75 18 125/62 92 L 08/31/21 08:00 08/31/21 08:00 08/31/21 08:00 08/31/21 08:00 08/31/21 08:00 Laboratory Results - last 24 hr 08/31/21 06:35: WBC 7.0, RBC 4.00 L, Hgb 11.2 L, Hct 36.0 L, MCV 89.9, MCH 28.1, MCHC 31.2 L, RDW 14.0, Plt Count 255, MPV 8.9, Neut % (Auto) 66.5, Lymph % (Auto) 29.4, [place] % (Auto) 2.8, Eos % (Auto) 0.8, Baso % (Auto) 0.5, Neut # (Auto) 4.6, Lymph # (Auto) 2.1, [place] # (Auto) 0.2, Eos # (Auto) 0.1, Baso # (Auto) 0.0 08/31/21 06:35: Sodium 133 L, Potassium 3.2 L, Chloride 106, Carbon Dioxide 23, Anion Gap 7.2, BUN 19 D, Creatinine 0.70, Estimated Creat Clear 41, Estimated GFR 109, Est GFR ( Amer) 132, Glucose 95, Calcium 7.7 L I & O for Last 24 hours: Intake & Output 08/28/21 08/29/21 08/30/21 08/31/21 23:59 23:59 23:59 23:59 Intake Total 240 / 240 835 / 835 240 / 240 360 / 360 Output Total 1075 / 1075 1400 / 1400 900 / 2500 2600 / 2600 Balance -835 / -835 -565 / -565 -660 / -2260 -2240 / -2240 Weight 91 lb 7.869 oz 91 lb 7.869 oz 92 lb 4.8 oz 103 lb 9.876 oz - Constitutional cachectic, chronically ill appearing, agitated, somnolent - *Routine HEENT Exam Head: Present: normocephalic Eye: Present: EOMI, PERRL ENT: Present: mucous membranes moist - *Routine Neck Exam Present: supple. Absent: lymphadenopathy - *Routine Respiratory Exam Present: crackles, distant breath sounds, diminished air movement. Absent: accessory muscle use, patient mechanically ventilated, respiratory distress - *Routine Cardiovascular Exam Present: RRR - *Routine Abdominal Exam Present: soft, normoactive bowel sounds. Absent: tenderness - *Routine Extremities Exam Present: extremity cold to touch. Absent: calf tenderness Comments: eccymosis foot - *Routine Skin Exam Present: warm, ecchymosis. Absent: rash - *Routine Neurological Exam Present: altered mental status. Absent: alert, oriented X3, normal speech Assessment and Plan (1) Pneumonia Status: Acute Qualifiers: Pneumonia type: due to unspecified organism Laterality: unspecified laterality Lung location: unspecified part of lung Qualified Code(s): J18.9 - Pneumonia, unspecified organism Category: Medical Code(s): J18.9 - Pneumonia, unspecified organism (2) Hx of fracture of right hip Status: Acute Category: Medical Code(s): Z87.81 - Personal history of (healed) traumatic fracture (3) Low body mass index (BMI) Status: Acute Category: Medical (4) Weakness Status: Acute Category: Medical Code(s): R53.1 - Weakness (5) COPD (chronic obstructive pulmonary disease) Status: Chronic Qualifiers: COPD type: emphysema Emphysema type: unspecified Qualified Code(s): J43.9 - Emphysema, unspecified Category: Medical Code(s): J44.9 - Chronic obstructive pulmonary disease, unspecified (6) Dementia arising in the senium and presenium Status: Chronic Category: Medical Code(s): F03.90 - Unspecified dementia without behavioral disturbance (7) Hypernatremia Status: Acute Category: Medical Code(s): E87.0 - Hyperosmolality and hypernatremia (8) Severe protein-calorie malnutrition Status: Acute Category: Medical Code(s): E43 - Unspecified severe protein-calorie malnutrition (9) Metatarsal fracture Status: Acute Qualifiers: Metatarsal bone: fourth Fracture alignment: nondisplaced Laterality: left Category: Medical Code(s): S92.309A - Fracture of unspecified metatarsal bone(s), unspecified foot, initial encounter for closed fracture - Assessment and plan all Dx
[2021-08-31 16:00] VITALS: BP 119/96; PULSE 83; RESP 18; TEMP 37; O2SAT 99
[2021-08-31 20:00] VITALS: BP 130/91; PULSE 78; RESP 16; TEMP 37.1; O2SAT 96
--- NOTE | 2021-08-31 23:32 | PC.NURSE ---
Patient was fed 1 container of unsweetened applesauce and approximately 1/2 of a can of tomato soup. Reported by SRNA. Danilo
[2021-09-01] VITALS: BP 122/88; PULSE 77; RESP 16; TEMP 37.1; O2SAT 94
--- NOTE | 2021-09-01 01:19 | PC.WOUNDNOTE ---
lateral side of left heel-stage 3 left elbow-blanchable reddened area Left foot Left foot Left foot dorsal side of right foot left christie right christie
[2021-09-01 04:00] VITALS: BP 122/72; PULSE 91; RESP 16; TEMP 36.6; O2SAT 97
[2021-09-01 04:43] VITALS: BMI 14.8
--- NOTE | 2021-09-01 06:00 | XR_ITS ---
PROCEDURE INFORMATION: Exam: XR Chest Exam date and time: 09/01/2021 6:00 AM Age: 76 years old Clinical indication: Shortness of breath; Additional info: Pneumonia TECHNIQUE: Imaging protocol: XR of the chest. Views: 1 view. COMPARISON: CR XR CHEST PORTABLE 08/27/2021 8:32 AM FINDINGS: Lungs: Patchy bibasilar airspace opacities, which may be mildly improved on the left. Pleural spaces: Increased size of layering bilateral pleural effusions. No pneumothorax. Heart/Mediastinum: Unremarkable. No cardiomegaly. Bones/joints: Unremarkable. IMPRESSION: 1. Increased size of layering bilateral pleural effusions. 2. Patchy bibasilar airspace opacities, mildly improved on the left.
[2021-09-01 06:23] LABS: Basophils # 0.1 K/mm3 (0-0.2); Basophils % 0.6 % (0.1-2.0); Eosinophils % 0.5 % (0.1-12.0); Hemoglobin 11.1 g/dL (14.1-18.0); Lymphocytes # 2.4 K/mm3 (0.7-4.5); Lymphocytes % 27.2 % (10-50); Mean Corpuscular HGB Conc 30.8 g/dL (31.8-35.4); Mean Corpuscular Hemoglobin 27.3 pg (27.0-31.2); Mean Corpuscular Volume 88.7 fl (80-94); Mean Platelet Volume 10.1 fl (7.4-10.4); Monocytes # 0.3 K/mm3 (0.1-1.0); Monocytes % 3.6 % (1.7-9.3); Neutrophils # 5.9 K/mm3 (1.8-7.8); Neutrophils % 68.2 % (37.0-80.0); Platelet Count 256 K/mm3 (142-424); Red Blood Count 4.06 M/mm3 (4.60-6.20); Red Cell Distribution Width 14.2 % (11.5-17.5); White Blood Count 8.7 K/mm3 (4.8-10.8)
[2021-09-01 06:41] LABS: Anion Gap 8.4 mEq/L (5-15); Blood Urea Nitrogen 11 mg/dl (9-20); Calcium 7.6 mg/dl (8.4-10.2); Carbon Dioxide 25 mmol/L (22.0-30.0); Chloride 103 mmol/L (98-107); Creatinine Clearance Estimated 41 mL/min (50-200); Estimated Glomerular Filt Rate 94 ml/min (>60); GFR (African American) 113 ML/MIN (>60); Glucose 89 mg/dl (74-100); Potassium 3.4 mmoL/L (3.5-5.1); Sodium 133 mmol/L (136-145)
[2021-09-01 08:00] VITALS: BP 119/82; PULSE 89; RESP 16; TEMP 36.6; O2SAT 96
[2021-09-01 12:00] VITALS: BP 145/70; PULSE 75; RESP 17; TEMP 37.2
--- NOTE | 2021-09-01 14:30 | HMH.ACPN2 ---
Internal Medicine - PN: Subj *Date: 09/01/21 *Time: 14:30 Interval history: Patient had an uneventful night. When seen today he was visited by his family. He remains confused. X-ray studies are reviewed. Looks like he has improving airspace disease. He is displaying no signs of respiratory distress Exam Vital signs and Labs for Last 24 Hours: Temp Pulse Resp BP Pulse Ox 98.9 F 75 17 145/70 H 96 09/01/21 12:00 09/01/21 12:00 09/01/21 12:00 09/01/21 12:00 09/01/21 08:00 Laboratory Results - last 24 hr 09/01/21 05:47: WBC 8.7, RBC 4.06 L, Hgb 11.1 L, Hct 36.0 L, MCV 88.7, MCH 27.3, MCHC 30.8 L, RDW 14.2, Plt Count 256, MPV 10.1, Neut % (Auto) 68.2, Lymph % (Auto) 27.2, [place] % (Auto) 3.6, Eos % (Auto) 0.5, Baso % (Auto) 0.6, Neut # (Auto) 5.9, Lymph # (Auto) 2.4, [place] # (Auto) 0.3, Eos # (Auto) 0.0, Baso # (Auto) 0.1 09/01/21 05:47: Sodium 133 L, Potassium 3.4 L, Chloride 103, Carbon Dioxide 25, Anion Gap 8.4, BUN 11 D, Creatinine 0.80, Estimated Creat Clear 41, Estimated GFR 94, Est GFR ( Amer) 113, Glucose 89, Calcium 7.6 L I & O for Last 24 hours: Intake & Output 08/29/21 08/30/21 08/31/21 09/01/21 23:59 23:59 23:59 23:59 Intake Total 835 / 835 240 / 240 960 / 960 465 / 465 Output Total 1400 / 1400 900 / 2500 3900 / 4500 2200 / 2200 Balance -565 / -565 -660 / -2260 -2940 / -3540 -1735 / -1735 Weight 91 lb 7.869 oz 92 lb 4.8 oz 103 lb 9.876 oz 103 lb 9.876 oz Microbiology Reports for the Last 24 Hours: Microbiology 08/27/21 08:50 Blood Blood Culture - Final NO GROWTH AFTER 5 DAYS 08/27/21 08:50 Blood Blood Culture - Final NO GROWTH AFTER 5 DAYS - Constitutional no acute distress, cachectic - *Routine HEENT Exam Head: Present: normocephalic Eye: Present: EOMI, PERRL ENT: Present: mucous membranes moist - *Routine Neck Exam Present: supple. Absent: lymphadenopathy - *Routine Respiratory Exam Present: CTA bilaterally. Absent: respiratory distress, wheezes - *Routine Cardiovascular Exam Present: RRR - *Routine Abdominal Exam Present: soft, normoactive bowel sounds. Absent: tenderness - *Routine Extremities Exam Absent: extremity cold to touch - *Routine Skin Exam Present: ecchymosis. Absent: jaundice - *Routine Neurological Exam Present: altered mental status, tremors. Absent: alert, oriented X3, normal speech Assessment and Plan (1) Pneumonia Status: Acute Qualifiers: Pneumonia type: due to unspecified organism Laterality: unspecified laterality Lung location: unspecified part of lung Qualified Code(s): J18.9 - Pneumonia, unspecified organism Category: Medical Code(s): J18.9 - Pneumonia, unspecified organism (2) Hx of fracture of right hip Status: Acute Category: Medical Code(s): Z87.81 - Personal history of (healed) traumatic fracture (3) Low body mass index (BMI) Status: Acute Category: Medical (4) Weakness Status: Acute Category: Medical Code(s): R53.1 - Weakness (5) COPD (chronic obstructive pulmonary disease) Status: Chronic Qualifiers: COPD type: emphysema Emphysema type: unspecified Qualified Code(s): J43.9 - Emphysema, unspecified Category: Medical Code(s): J44.9 - Chronic obstructive pulmonary disease, unspecified (6) Dementia arising in the senium and presenium Status: Chronic Category: Medical Code(s): F03.90 - Unspecified dementia without behavioral disturbance (7) Hypernatremia Status: Acute Category: Medical Code(s): E87.0 - Hyperosmolality and hypernatremia (8) Severe protein-calorie malnutrition Status: Acute Category: Medical Code(s): E43 - Unspecified severe protein-calorie malnutrition (9) Metatarsal fracture Status: Acute Qualifiers: Metatarsal bone: fourth Fracture alignment: nondisplaced Laterality: left Category: Medical Code(s): S92.309A - Fracture of unspecified me
[2021-09-01 16:00] VITALS: BP 140/59; PULSE 78; RESP 16; TEMP 37; O2SAT 92
[2021-09-01 20:00] VITALS: BP 135/74; PULSE 64; RESP 16; TEMP 36.3; O2SAT 98
--- NOTE | 2021-09-01 20:16 | PC.NURSE ---
Spoke with Dr. Robin in RE to pt's toes and discoloration. NNO at this time. Pt has been eating more than prior. Dr. Robin made aware and Dr. Robin still wants to proceed with Peg placement tom. Suleman Rodriguez RN made aware of need still for consent. Pt to be NPO at midnight. VSS.
[2021-09-02] VITALS (16 sets, daily range): BP systolic 77–139; BP diastolic 42–96; PULSE 69–106; RESP 15–19; TEMP 36.3–36.8; O2SAT 95–100; BMI 14.9
--- NOTE | 2021-09-02 07:32 | HMH.ANESCL ---
[facility] Anesthesia Checklist - Patient Identification Patient Identification: Arm Band - Structural Data Admitted From: Inpatient Planned Operative Procedure/s: PEG Placement Consent for Planned Operative Procedure(s) Verified: Yes Verified Documents: Surgical Consent - NPO Status Verified Time NPO: 00:00 - Additional verifications Anesthesia Reactions: No Hx Blood Transfusions: No Blood Transfusion Reaction: No - Cardiovascular Assessment Heart Sounds: S1 & S2 - Airway Assessment C-Spine Mobility Assessed: Yes TMJ Mobility Assessed: Yes Dentition: Edentulous - Neurological Assessment Level of Consciousness: Disoriented - Anesthesia Plan Anesthesia Plan: Not verified due to Patient Condition Anesthesia Type: General [facility] History Medical History: Reports:: Chronic Obstructive Pulmonary Disease (COPD), Dementia, Hypertension Denies:: Cancer, Diabetes Mellitus Type 1, Diabetes Mellitus Type 2, MRSA, Seizures *Have you ever received a pneumonia vaccine?: Yes *Have you received a flu vaccine this season?: Yes (06/28) Other Medical History: Reports: Liver Disease. Denies: Blood Transfusion Reaction Anesthesia experience/problems:: none Other Surgeries: Yes: No Previous Surgery, Colonoscopy, Other Amputation: No Fractures: Yes (RIGHT HIP) - *Social History Smoking Status: Former smoker Tobacco Type: cigarettes # Packs/Day (cigarettes): 1 Alcohol Intake: former Alcohol Intake Frequency:: other Substance Use Type: denies use *Occupational Status:: disabled Housing: house Household Members: friend(s) *Travel in the last 8 weeks: None Family Hx:: Unable to obtain
--- NOTE | 2021-09-02 08:05 | P.PCN_ITS ---
- Procedure: Date: 09/02/21 Patient Date of :: 1945 Procedure Performed:: Placement of 20 Malay pull-type percutaneous endoscopic gastrostomy tube Indications:: Patient is a 76-year-old demented cachectic intermediate patient who had been admitted with bilateral pneumonia. He has been unable to maintain nutrition. He did undergo speech therapy evaluation. Plan was for gastrostomy tube placement. Performing Provider:: Mariano Duarte MD Referring Provider:: Guy Robin MD. Sedation:: MAC sedation Local Procedure:: Patient was taken to endoscopy procedure room. Positioned and maintained in supine position on the hospital bed. Adequate intravenous sedation was achieved. Olympus endoscope was inserted via the oropharynx. Esophagus was cannulated. There was some old food in the hypopharynx. Gastroesophageal junction was encountered at approximately 45 cm from the incisors. Stomach was cannulated and insufflated. There was good light transillumination in the epigastrium. Abdomen was prepped and draped. Local anesthetic was infiltrated at the site of transillumination. Small incision was made. Catheter was inserted through the incision into the gastric lumen under endoscopic visualization. Loop guidewire was inserted through the catheter and grasped with the endoscopic loop. Endoscope was then withdrawn with the grasper and loop guidewire. 20 Malay pull-type PEG was secured to the loop guidewire. Traction was placed on the loop guidewire pulling the PEG tube through the anterior abdominal wall. Completion endoscopy revealed good position of the PEG tube in the antrum. Antibiotic ointment was placed at the PEG tube site. PEG tube was secured at approximately the 2 cm ajay. Clamp and infusion apparatus was secured to the PEG tube after was cut to the appropriate length. There were no immediate complications. Findings:: Limited endoscopy relatively unremarkable Recommendations:: Would recommend refraining from using PEG tube for approximately 24 hours. Complications:: None immediate Estimated blood obtained (mL): 5
[2021-09-02 09:10] LABS: Basophils % 0.5 % (0.1-2.0); Eosinophils # 0.1 K/mm3 (0.0-0.4); Eosinophils % 0.8 % (0.1-12.0); Hematocrit 33.4 % (42.0-52.0); Hemoglobin 10.9 g/dL (14.1-18.0); Lymphocytes # 1.8 K/mm3 (0.7-4.5); Lymphocytes % 25.6 % (10-50); Mean Corpuscular HGB Conc 32.6 g/dL (31.8-35.4); Mean Corpuscular Hemoglobin 28.8 pg (27.0-31.2); Mean Corpuscular Volume 88.3 fl (80-94); Mean Platelet Volume 8.3 fl (7.4-10.4); Monocytes # 0.2 K/mm3 (0.1-1.0); Monocytes % 2.5 % (1.7-9.3); Neutrophils # 4.9 K/mm3 (1.8-7.8); Neutrophils % 70.6 % (37.0-80.0); Platelet Count 281 K/mm3 (142-424); Red Blood Count 3.79 M/mm3 (4.60-6.20); Red Cell Distribution Width 14.3 % (11.5-17.5); White Blood Count 6.9 K/mm3 (4.8-10.8)
[2021-09-02 09:19] LABS: Anion Gap 6.3 mEq/L (5-15); Blood Urea Nitrogen 10 mg/dl (9-20); Calcium 7.7 mg/dl (8.4-10.2); Carbon Dioxide 26 mmol/L (22.0-30.0); Chloride 104 mmol/L (98-107); Creatinine Clearance Estimated 41 mL/min (50-200); Estimated Glomerular Filt Rate 94 ml/min (>60); GFR (African American) 113 ML/MIN (>60); Glucose 110 mg/dl (74-100); Potassium 3.3 mmoL/L (3.5-5.1); Sodium 133 mmol/L (136-145)
--- NOTE | 2021-09-02 10:01 | HMH.ACPN2 ---
Internal Medicine - PN: Subj *Date: 09/02/21 *Time: 11:54 Interval history: 76-year-old male patient resting in bed quietly, he just returned from surgery for G-tube placement. He is actively sleeping unresponsive to verbal stimuli will only respond with moans to tactile stimuli. No distress currently noted Exam Vital signs and Labs for Last 24 Hours: Temp Pulse Resp BP Pulse Ox 97.5 F L 84 16 95/67 L 99 09/02/21 09:30 09/02/21 09:30 09/02/21 09:30 09/02/21 09:30 09/02/21 09:30 Laboratory Results - last 24 hr 09/02/21 08:55: WBC 6.9, RBC 3.79 L, Hgb 10.9 L, Hct 33.4 L, MCV 88.3, MCH 28.8, MCHC 32.6, RDW 14.3, Plt Count 281, MPV 8.3, Neut % (Auto) 70.6, Lymph % (Auto) 25.6, [place] % (Auto) 2.5, Eos % (Auto) 0.8, Baso % (Auto) 0.5, Neut # (Auto) 4.9, Lymph # (Auto) 1.8, [place] # (Auto) 0.2, Eos # (Auto) 0.1, Baso # (Auto) 0.0 09/02/21 08:55: Sodium 133 L, Potassium 3.3 L, Chloride 104, Carbon Dioxide 26, Anion Gap 6.3, BUN 10, Creatinine 0.80, Estimated Creat Clear 41, Estimated GFR 94, Est GFR ( Amer) 113, Glucose 110 H, Calcium 7.7 L I & O for Last 24 hours: Intake & Output 08/30/21 08/31/21 09/01/21 09/02/21 23:59 23:59 23:59 23:59 Intake Total 240 / 240 960 / 960 945 / 945 7822 / 7822 Output Total 900 / 2500 3900 / 4500 2900 / 3150 1650 / 1650 Balance -660 / -2260 -2940 / -3540 -1955 / -2205 6172 / 6172 Weight 92 lb 4.8 oz 103 lb 9.876 oz 103 lb 9.876 oz 104 lb 4.458 oz Microbiology Reports for the Last 24 Hours: Microbiology 08/27/21 08:50 Blood Blood Culture - Final NO GROWTH AFTER 5 DAYS 08/27/21 08:50 Blood Blood Culture - Final NO GROWTH AFTER 5 DAYS - Constitutional no acute distress, thin, chronically ill appearing - *Routine HEENT Exam Head: Present: normocephalic Eye: Present: EOMI ENT: Present: mucous membranes moist - *Routine Neck Exam Present: trachea midline. Absent: tracheal deviation - *Routine Respiratory Exam Present: CTA bilaterally. Absent: accessory muscle use - *Routine Cardiovascular Exam Present: RRR - *Routine Abdominal Exam Present: soft. Absent: tenderness, firm Comments: GT Abd - *Routine Extremities Exam Present: pulses intact. Absent: cyanosis, clubbing, edema Comments: L Grt toe discolored L Foot cool to touch - *Routine Skin Exam Present: intact, dry. Absent: cyanosis, erythema - *Routine Neurological Exam Present: altered mental status - Routine Psychiatric Exam Present: unable to assess Assessment and Plan (1) Pneumonia Status: Acute Qualifiers: Pneumonia type: due to unspecified organism Laterality: unspecified laterality Lung location: unspecified part of lung Qualified Code(s): J18.9 - Pneumonia, unspecified organism Category: Medical Code(s): J18.9 - Pneumonia, unspecified organism (2) Hx of fracture of right hip Status: Acute Category: Medical Code(s): Z87.81 - Personal history of (healed) traumatic fracture (3) Low body mass index (BMI) Status: Acute Category: Medical (4) Weakness Status: Acute Category: Medical Code(s): R53.1 - Weakness (5) COPD (chronic obstructive pulmonary disease) Status: Chronic Qualifiers: COPD type: emphysema Emphysema type: unspecified Qualified Code(s): J43.9 - Emphysema, unspecified Category: Medical Code(s): J44.9 - Chronic obstructive pulmonary disease, unspecified (6) Dementia arising in the senium and presenium Status: Chronic Category: Medical Code(s): F03.90 - Unspecified dementia without behavioral disturbance (7) Hypernatremia Status: Acute Category: Medical Code(s): E87.0 - Hyperosmolality and hypernatremia (8) Severe protein-calorie malnutrition Status: Acute Category: Medical Code(s): E43 - Unspecified severe protein-calorie malnutrition (9) Metatarsal fracture Status: Acute Qualifiers: Metatarsal bone: fourt
--- NOTE | 2021-09-02 11:35 | HMH.PTWOUND ---
Rehab Inpt Wound Evaluation Rehab IP Wound Evaluation Start: 08/29/21 08:44 Freq: ONCE Status: Complete Protocol: Document 08/29/21 09:01 PWMEE (Rec: 08/29/21 09:09 PWMEE [id number]) Rehab PT Wound Assessment Patient Status Premedicated Prior to Dressing Change No Subjective Subjective Pt is a resident of [facility] - pt has severly advanced dementia and is non- communicative - yesterday pt was agitated and aggressive w/ staff but is more docile today - pt's immobility flexed posture and severe lack of mantation prompted low cisco score and wound care consult Wound Left Christie Wound Type Skin Tear Wound Bed Appearance Beefy Red Percentage Granulated (%) 100 Dressing Status Open to Air Plan/Recommendation Comment Pt has scrape on L christie and multiple healing small wounds on foot and R christie. Foot wounds appear arterial in nature and christie wounds from fall at ns home from w/c. Wound prevention for sacral coccygeal area in place and Q2 pressure relief and turns being performed by nursing. No specialized wound care required at this time. Nsg to cont w/ pressure relief, wound care team to continue to be available for consultation . Eval Complexity Eval Charge Codes 26064 - High Complexity G-codes PT Current Status Other PT/OT Status PT Current Status Modifier CN-At least 100% impaired, limited or restricted PT Goal Status Other PT/OT Status PT Goal Status Modifer CN-At least 100% impaired, limited or restricted Rehab IP Wound Evaluation Start: 09/01/21 11:55 Freq: ONCE Status: Active Protocol: Document 09/02/21 11:29 PWMEE (Rec: 09/02/21 11:35 PWMEE [id number]) Rehab PT Wound Assessment Patient Status Premedicated Prior to Dressing Change No Subjective Subjective New request for wound eval from MD Wound Sacrum Wound Type
--- NOTE | 2021-09-02 14:25 | DIET.NUTRFU ---
Patient had PEG placed today to help supplement oral intake to better meet nutritional needs. Currently tolerating pureed diet with thin liquids, requiring assistance with meals and if excepts consumes 75%. But also refuses at times d/t his advanced dementia. Surgeon recommended waiting 24hours before starting TF, when medically feasible start: Jevity 1.5 at 20ml/hr x10 hours through night and increase as tolerated for goal rate of 50ml/hr to provide 500ml/750kcal and 32gm protein and 390ml free water with a flush of 50ml Q6h= 300ml/day for total fluid of 690ml/day. This plus oral intake to meet 100% needs. TF will help meet needs, wt gains would beneficial he is currently underweight. Patient lives at [place] there can adjust as meal intake changes.
[2021-09-03] VITALS: BP 110/63; PULSE 82; RESP 14; TEMP 36.4; O2SAT 98
[2021-09-03 04:00] VITALS: BP 129/56; PULSE 66; RESP 14; TEMP 36.7; O2SAT 96
[2021-09-03 05:00] VITALS: BMI 15.5
--- NOTE | 2021-09-03 06:34 | HMH.GSPN ---
Subjective Narrative: Patient resting with abdominal binder in place. Progress Note: A&P (1) Pneumonia Status: Acute (2) Hx of fracture of right hip Status: Acute (3) Low body mass index (BMI) Status: Acute (4) Weakness Status: Acute (5) COPD (chronic obstructive pulmonary disease) Status: Chronic (6) Dementia arising in the senium and presenium Status: Chronic (7) Hypernatremia Status: Acute (8) Severe protein-calorie malnutrition Status: Acute (9) Metatarsal fracture Status: Acute Assessment and Plan for All Diagnoses:: May begin using PEG tube. Significant precautions must be undertaken to avoid patient pulling out PEG tube. Exam Vital signs and Labs for Last 24 Hours: Temp Pulse Resp BP Pulse Ox 98.0 F 66 14 129/56 L 96 09/03/21 04:00 09/03/21 04:00 09/03/21 04:00 09/03/21 04:00 09/03/21 04:00 Laboratory Results - last 24 hr 09/02/21 08:55: WBC 6.9, RBC 3.79 L, Hgb 10.9 L, Hct 33.4 L, MCV 88.3, MCH 28.8, MCHC 32.6, RDW 14.3, Plt Count 281, MPV 8.3, Neut % (Auto) 70.6, Lymph % (Auto) 25.6, [place] % (Auto) 2.5, Eos % (Auto) 0.8, Baso % (Auto) 0.5, Neut # (Auto) 4.9, Lymph # (Auto) 1.8, [place] # (Auto) 0.2, Eos # (Auto) 0.1, Baso # (Auto) 0.0 09/02/21 08:55: Sodium 133 L, Potassium 3.3 L, Chloride 104, Carbon Dioxide 26, Anion Gap 6.3, BUN 10, Creatinine 0.80, Estimated Creat Clear 41, Estimated GFR 94, Est GFR ( Amer) 113, Glucose 110 H, Calcium 7.7 L I & O for Last 24 hours: Intake & Output 08/31/21 09/01/21 09/02/21 09/03/21 11:59 11:59 11:59 11:59 Intake Total 600 / 600 1065 / 1065 8302 / 8302 Output Total 1700 / 1700 4500 / 4500 2350 / 2350 Balance -1100 / -1100 -3435 / -3435 5952 / 2603 Weight 103 lb 9.876 oz 103 lb 9.876 oz 104 lb 4.458 oz 108 lb 7.479 oz - *Routine Abdominal Exam Present: soft
--- NOTE | 2021-09-03 07:43 | DIET.NUTRFU ---
Tubefeeding order to start today, possible discharge back to senior care today if tolerated. Jevity 1.2 at 20ml/hr and increase to 45ml/hr to provide 1242kcal and 65gm protein and 833 free water with flush ordered of 100ml Q4H providing 600ml total fluid 1433ml/day to meet 100% of needs. When medically feasible restart oral diet for pleasure he was tolerating pureed with thin liquids prior to PEG placement.
[2021-09-03 07:59] LABS: Anion Gap 5.9 mEq/L (5-15); Basophils % 0.3 % (0.1-2.0); Blood Urea Nitrogen 9 mg/dl (9-20); Calcium 7.7 mg/dl (8.4-10.2); Carbon Dioxide 27 mmol/L (22.0-30.0); Chloride 101 mmol/L (98-107); Creatinine Clearance Estimated 43 mL/min (50-200); Eosinophils % 0.5 % (0.1-12.0); Estimated Glomerular Filt Rate 109 ml/min (>60); GFR (African American) 132 ML/MIN (>60); Glucose 98 mg/dl (74-100); Hematocrit 34.1 % (42.0-52.0); Hemoglobin 11.1 g/dL (14.1-18.0); Lymphocytes # 1.6 K/mm3 (0.7-4.5); Mean Corpuscular HGB Conc 32.6 g/dL (31.8-35.4); Mean Corpuscular Hemoglobin 28.7 pg (27.0-31.2); Mean Corpuscular Volume 88.2 fl (80-94); Mean Platelet Volume 8.8 fl (7.4-10.4); Monocytes # 0.2 K/mm3 (0.1-1.0); Monocytes % 2.8 % (1.7-9.3); Neutrophils # 4.4 K/mm3 (1.8-7.8); Neutrophils % 70.5 % (37.0-80.0); Platelet Count 249 K/mm3 (142-424); Potassium 3.9 mmoL/L (3.5-5.1); Red Blood Count 3.87 M/mm3 (4.60-6.20); Red Cell Distribution Width 14.3 % (11.5-17.5); Sodium 130 mmol/L (136-145); White Blood Count 6.3 K/mm3 (4.8-10.8)
[2021-09-03 08:50] VITALS: BP 121/76; PULSE 74; RESP 20; TEMP 36.1; O2SAT 92
--- NOTE | 2021-09-03 09:12 | HMH.ACPN2 ---
Internal Medicine - PN: Subj *Date: 09/03/21 *Time: 10:55 Interval history: 76-year-old male patient sitting up in bed he is alert and pleasantly confused. G-tube in place with binder surgery seen this morning Exam Vital signs and Labs for Last 24 Hours: Temp Pulse Resp BP Pulse Ox 97 F L 74 20 121/76 92 L 09/03/21 08:50 09/03/21 08:50 09/03/21 08:50 09/03/21 08:50 09/03/21 08:50 Laboratory Results - last 24 hr 09/02/21 08:55: Sodium 133 L, Potassium 3.3 L, Chloride 104, Carbon Dioxide 26, Anion Gap 6.3, BUN 10, Creatinine 0.80, Estimated Creat Clear 41, Estimated GFR 94, Est GFR ( Amer) 113, Glucose 110 H, Calcium 7.7 L 09/03/21 07:44: WBC 6.3, RBC 3.87 L, Hgb 11.1 L, Hct 34.1 L, MCV 88.2, MCH 28.7, MCHC 32.6, RDW 14.3, Plt Count 249, MPV 8.8, Neut % (Auto) 70.5, Lymph % (Auto) 26.0, [place] % (Auto) 2.8, Eos % (Auto) 0.5, Baso % (Auto) 0.3, Neut # (Auto) 4.4, Lymph # (Auto) 1.6, [place] # (Auto) 0.2, Eos # (Auto) 0.0, Baso # (Auto) 0.0 09/03/21 07:44: Sodium 130 L, Potassium 3.9, Chloride 101, Carbon Dioxide 27, Anion Gap 5.9, BUN 9, Creatinine 0.70, Estimated Creat Clear 43, Estimated GFR 109, Est GFR ( Amer) 132, Glucose 98, Calcium 7.7 L I & O for Last 24 hours: Intake & Output 08/31/21 09/01/21 09/02/21 09/03/21 23:59 23:59 23:59 23:59 Intake Total 960 / 960 945 / 945 7822 / 7822 Output Total 3900 / 4500 2900 / 3150 1650 / 1650 Balance -2940 / -3540 -1955 / -2205 6172 / 6172 Weight 103 lb 9.876 oz 103 lb 9.876 oz 104 lb 4.458 oz 108 lb 7.479 oz - Constitutional no acute distress, cachectic, chronically ill appearing - *Routine HEENT Exam Head: Present: normocephalic Eye: Present: EOMI ENT: Present: mucous membranes dry - *Routine Neck Exam Present: trachea midline. Absent: tracheal deviation - *Routine Respiratory Exam Present: CTA bilaterally. Absent: accessory muscle use - *Routine Cardiovascular Exam Present: RRR - *Routine Abdominal Exam Present: soft, normoactive bowel sounds. Absent: tenderness Comments: GT w/ Binder - *Routine Extremities Exam Present: pulses intact. Absent: cyanosis, clubbing - *Routine Skin Exam Present: warm, wounds. Absent: intact, jaundice Comments: GT w/ Binder L Grt toe Purple L Hernandez w/ healing wounds - *Routine Neurological Exam Present: alert, altered mental status - Routine Psychiatric Exam Present: unable to assess Assessment and Plan (1) Pneumonia Status: Acute Qualifiers: Pneumonia type: due to unspecified organism Laterality: unspecified laterality Lung location: unspecified part of lung Qualified Code(s): J18.9 - Pneumonia, unspecified organism Category: Medical Code(s): J18.9 - Pneumonia, unspecified organism (2) Hx of fracture of right hip Status: Acute Category: Medical Code(s): Z87.81 - Personal history of (healed) traumatic fracture (3) Low body mass index (BMI) Status: Acute Category: Medical (4) Weakness Status: Acute Category: Medical Code(s): R53.1 - Weakness (5) COPD (chronic obstructive pulmonary disease) Status: Chronic Qualifiers: COPD type: emphysema Emphysema type: unspecified Qualified Code(s): J43.9 - Emphysema, unspecified Category: Medical Code(s): J44.9 - Chronic obstructive pulmonary disease, unspecified (6) Dementia arising in the senium and presenium Status: Chronic Category: Medical Code(s): F03.90 - Unspecified dementia without behavioral disturbance (7) Hypernatremia Status: Acute Category: Medical Code(s): E87.0 - Hyperosmolality and hypernatremia (8) Severe protein-calorie malnutrition Status: Acute Category: Medical Code(s): E43 - Unspecified severe protein-calorie malnutrition (9) Metatarsal fracture Status: Acute Qualifiers: Metatarsal bone: fourth Fracture alignment: nondisplaced Laterality: left Category: Medical Code(s): S92.309A - Fracture of unspecified metatarsal bone(
[2021-09-03 11:50] VITALS: BP 147/74; PULSE 64; RESP 16; TEMP 36.7; O2SAT 97
[2021-09-03 15:11] VITALS: BP 95/56; PULSE 71; RESP 20; TEMP 37; O2SAT 93
[2021-09-03 20:00] VITALS: BP 101/63; PULSE 91; RESP 18; TEMP 36.9; O2SAT 94
[2021-09-04] VITALS: BP 125/72; PULSE 81; RESP 16; TEMP 36.7; O2SAT 92
[2021-09-04 04:00] VITALS: BP 131/72; PULSE 83; RESP 16; TEMP 36.7; O2SAT 95
[2021-09-04 04:54] VITALS: BMI 15.3
--- NOTE | 2021-09-04 07:43 | DIET.NUTRFU ---
Spoke to nursing today, patient is tolerating tubefeeding and up to goal rate of 45ml/hr. Patient is still NPO, during PEG placement it was noted there was some old food in the hypopharynx. Will continue NPO status, until seen by AUTOMOBILE CARPETS MOLDER again possibly after [facility]. Current TF is meeting 100% nutrition: 1242kcal and 65gm protein and 833 free water with flush ordered of 100ml Q4H providing 600ml total fluid 1433ml/day. CBW is 48.7kg.
[2021-09-04 08:00] VITALS: BP 115/76; PULSE 82; RESP 16; TEMP 36.6; O2SAT 97
--- NOTE | 2021-09-04 08:03 | P.PN_ITS ---
Internal Medicine - PN: Subj *Date: 09/04/21 *Time: 08:03 Exam Vital signs and Labs for Last 24 Hours: Temp Pulse Resp BP Pulse Ox 98.0 F 83 16 131/72 95 09/04/21 04:00 09/04/21 04:00 09/04/21 04:00 09/04/21 04:00 09/04/21 04:00 I & O for Last 24 hours: Intake & Output 09/01/21 09/02/21 09/03/21 09/04/21 23:59 23:59 23:59 23:59 Intake Total 945 / 945 7822 / 7822 40556 / 04282 Output Total 2900 / 3150 1650 / 1650 2650 / 3100 450 / 450 Balance -1955 / -2205 6172 / 6172 54453 / 17217 -450 / -450 Weight 47 kg 47.3 kg 49.2 kg 48.7 kg Assessment and Plan (1) Pneumonia Status: Acute Qualifiers: Pneumonia type: due to unspecified organism Laterality: unspecified lateral ity Lung location: unspecified part of lung Qualified Code(s): J18.9 - Pneumonia, unspecified organism Category: Medical Code(s): J18.9 - Pneumonia, unspecified organism (2) Hx of fracture of right hip Status: Acute Category: Medical Code(s): Z87.81 - Personal history of (healed) traumatic fracture (3) Low body mass index (BMI) Status: Acute Category: Medical (4) Weakness Status: Acute Category: Medical Code(s): R53.1 - Weakness (5) COPD (chronic obstructive pulmonary disease) Status: Chronic Qualifiers: COPD type: emphysema Emphysema type: unspecified Qualified Code(s): J43.9 - Emphysema, unspecified Category: Medical Code(s): J44.9 - Chronic obstructive pulmonary disease, unspecified (6) Dementia arising in the senium and presenium Status: Chronic Category: Medical Code(s): F03.90 - Unspecified dementia without behavioral disturbance (7) Hypernatremia Status: Acute Category: Medical Code(s): E87.0 - Hyperosmolality and hypernatremia (8) Severe protein-calorie malnutrition Status: Acute Category: Medical Code(s): E43 - Unspecified severe protein- calorie malnutrition (9) Metatarsal fracture Status: Acute Qualifiers: Metatarsal bone: fourth Fracture alignment: nondisplaced Laterality: left Category: Medical Code(s): S92.309A - Fracture of unspecified metatarsal bone(s), unspecified foot, initial encounter for closed fracture The patient's infection will respond to the chosen ABx?: Yes Is the patient receiving the right drug, dose, and route?: Yes Could a more targeted ABx be ordered?: No
[2021-09-04 08:58] LABS: Anion Gap 6.2 mEq/L (5-15); Basophils % 0.6 % (0.1-2.0); Blood Urea Nitrogen 9 mg/dl (9-20); Calcium 8.2 mg/dl (8.4-10.2); Carbon Dioxide 29 mmol/L (22.0-30.0); Chloride 99 mmol/L (98-107); Creatinine Clearance Estimated 43 mL/min (50-200); Eosinophils # 0.1 K/mm3 (0.0-0.4); Eosinophils % 1.4 % (0.1-12.0); Estimated Glomerular Filt Rate 131 ml/min (>60); GFR (African American) 158 ML/MIN (>60); Glucose 106 mg/dl (74-100); Hematocrit 35.1 % (42.0-52.0); Hemoglobin 10.9 g/dL (14.1-18.0); Lymphocytes # 1.7 K/mm3 (0.7-4.5); Mean Corpuscular HGB Conc 31.2 g/dL (31.8-35.4); Mean Corpuscular Hemoglobin 27.4 pg (27.0-31.2); Mean Corpuscular Volume 87.7 fl (80-94); Mean Platelet Volume 8.6 fl (7.4-10.4); Monocytes # 0.2 K/mm3 (0.1-1.0); Neutrophils # 3.6 K/mm3 (1.8-7.8); Neutrophils % 65.1 % (37.0-80.0); Platelet Count 253 K/mm3 (142-424); Potassium 4.2 mmoL/L (3.5-5.1); Red Blood Count 3.99 M/mm3 (4.60-6.20); Red Cell Distribution Width 14.3 % (11.5-17.5); Sodium 130 mmol/L (136-145); White Blood Count 5.6 K/mm3 (4.8-10.8)
--- NOTE | 2021-09-04 09:29 | HMH.DCSUM ---
General - General Admission date:: 08/27/21 Discharge date: 09/04/21 HPI HPI: 76 yo senior living resident w/dementia admitted through ER for hypoxia and pneumonia. He is cachectic, demented, and unable to provide details pertaining to his situation. Workup included CXR: CLINICAL HISTORY: hypoxia COMPARISON: CR XR CHEST 2V from 04/03/2021 FINDINGS: The cardiomediastinal silhouette and pulmonary vascularity are within normal limits. Faint areas of infiltrate are present in the right upper lobe, left upper lobe, and left lower lobe consistent with bilateral pneumonia . No acute bony abnormalities. IMPRESSION: Bilateral pneumonia He is admitted for iv abx, oxygen, and further evaluation. Hospital Course Hospital Course: 76 yo senior living resident w/dementia admitted through ER for hypoxia and pneumonia. 08/30/21 L Foot XR: FINDINGS: Mild osteoarthritic changes are present at the 1st MTP joint. Only two views are submitted. There is somewhat abnormal orientation at the base of the fourth metatarsal with questionable fracture at the proximal aspect of the 4th metatarsal. Dedicated three view study or CT may provide further evaluation. The tarsal bones also overlap and are not adequately assessed on the AP view. Other findings:None. IMPRESSION: Questionable fracture at the proximal aspect of the 4th metatarsal. Incomplete evaluation of the tarsal bones and base of the metatarsals Dictated by: Kishan Prieto MD 09/02/20 EGD w/ PEG Tube placemnet pre Gen Surg: Patient was taken to endoscopy procedure room. Positioned and maintained in supine position on the hospital bed. Adequate intravenous sedation was achieved. Olympus endoscope was inserted via the oropharynx. Esophagus was cannulated. There was some old food in the hypopharynx. Gastroesophageal junction was encountered at approximately 45 cm from the incisors. Stomach was cannulated and insufflated. There was good light transillumination in the epigastrium. Abdomen was prepped and draped. Local anesthetic was infiltrated at the site of transillumination. Small incision was made. Catheter was inserted through the incision into the gastric lumen under endoscopic visualization. Loop guidewire was inserted through the catheter and grasped with the endoscopic loop. Endoscope was then withdrawn with the grasper and loop guidewire. 20 [place] pull-type PEG was secured to the loop guidewire. Traction was placed on the loop guidewire pulling the PEG tube through the anterior abdominal wall. Completion endoscopy revealed good position of the PEG tube in the antrum. Antibiotic ointment was placed at the PEG tube site. PEG tube was secured at approximately the 2 cm ajay. Clamp and infusion apparatus was secured to the PEG tube after was cut to the appropriate length. There were no immediate complications. Findings:: Limited endoscopy relatively unremarkable Cardiology has seen and recommends: Plan: 1. This is a 76-year-old man who was admitted to the hospital from the senior living with hypoxia and shortness of breath. The patient was found to have pneumonia. This is being treated per his primary care provider. Will defer. 2. Cardiology has been consulted for an ischemic left foot. The patient has purple/black digits to his left foot. His left great toe digit 2, digit 3, and digit 4 are all purple/black in color consistent with ischemia. The patient is contracted and not cooperating with my exam. His lower extremities are contracted and he will not let me straighten out his legs. He does open his eyes to very loud verbal stimuli but he does not answer any questions or follow any commands. He did moan 1 time. This is not an appropriate candidate for invasive procedures. No runoff will be completed at this time. 3. The patient has not been taking oral intake. His family was contacted today and they are considering an NG tube placement a
--- NOTE | 2021-09-04 09:35 | DIET.NUTRFU ---
RD reviewed labs with HISTOTECHNOLOGIST SUPERVISOR, sodium level low at 130. Increased flush to 120 Q4H providing 720ml/day with total fluid of 1553ml (30ml/kg). Plans to discharge to [facility] today. Change in order was reviewed with nursing
[2021-09-04 10:08] LABS: Influenza A, PCR Not Detected (NotDetected); Influenza B, PCR Not Detected (NotDetected)
[2021-09-04 10:58] LABS: Coronavirus 19, PCR Not Detected (NotDetected)
[2021-09-04 11:44] VITALS: BP 121/77; PULSE 88; RESP 16; TEMP 36.6; O2SAT 94
== END 2021-09-04 14:27 | DRG 193 ==
LOC: ER 11:53 → ICU 15:11 → 2ND 08-29 10:56
PROVIDERS: Nurse Practitioner Family; Surgery; Admitting Provider Family Medicine; Emergency Provider Emergency Medicine; PCP Emergency Medicine; Visit Provider Family Medicine
PROC: 0DH63UZ Insertion of Feeding Device into Stomach, Percutaneous Approach (ICD-10-PCS; CPT 43246; principal; 2021-09-02 07:30)
DX: J18.9 Pneumonia, unspecified organism (principal); E43 Unspecified severe protein-calorie malnutrition; E87.0 Hyperosmolality and hypernatremia; Z68.1 Body mass index [BMI] 19.9 or less, adult; Z20.822 Contact with and (suspected) exposure to COVID-19; F03.90 Unspecified dementia, unspecified severity, without behavioral disturbance, psychotic disturbance, mood disturbance, and anxiety; Z87.891 Personal history of nicotine dependence; J43.9 Emphysema, unspecified; I10 Essential (primary) hypertension; I99.8 Other disorder of circulatory system
CPT/HCPCS: 43246; 36415; 71045; 73620; 80048; 80053; 82140; 82803; 83605; 85025; 87040; 92610; 96365; 96375; 99284; C9803; J0456; J0696; U0003; U0005

== ENCOUNTER 2021-09-04 18:47 | Observation (INO) | payer MEDICARE, MEDICAID, SELFPAY ==
[2021-09-04 18:47] VITALS: BP 108/88; PULSE 71; RESP 18; TEMP 37.5; O2SAT 98; BMI 17.4
--- NOTE | 2021-09-04 18:55 | CT_ITS ---
PROCEDURE INFORMATION: Exam: CT Abdomen And Pelvis Without Contrast Exam date and time: 09/04/2021 6:55 PM Age: 76 years old Clinical indication: Vomiting TECHNIQUE: Imaging protocol: Computed tomography of the abdomen and pelvis without contrast. Radiation optimization: All CT scans at this facility use at least one of these dose optimization techniques: automated exposure control; mA and/or kV adjustment per patient size (includes targeted exams where dose is matched to clinical indication); or iterative reconstruction. COMPARISON: CT ABDOMEN PELVIS W CON 02/14/2021 10:51 AM FINDINGS: Limitations: Photon starvation artifact related to patient's arm positioning severely degrades images, limiting sensitivity of exam. Paucity of mesenteric fat limits sensitivity in CT evaluation for acute intra-abdominal processes. Tubes, catheters and devices: Percutaneous gastrostomy tube in place with approximately 4 mm space between the anterior gastric wall and anterior abdominal fascia, most likely source of free air. Gastrostomy tube balloon appears either half inflated or cylindrical in shape with an estimated 5 cc volume. Liver: Within normal limits. Gallbladder and bile ducts: Not visualized. Pancreas: Not well evaluated. Spleen: Within normal limits. Adrenal glands: Within normal limits. Kidneys and ureters: No hydronephrosis. Punctate non-obstructing stone in the upper pole the right kidney. Stomach and bowel: Diffusely dilated small bowel loops with no definite abrupt transition point and moderate stool burden in the colon and rectum, most likely reflecting severe reactive ileus. However, bowel obstruction with perforation is still warranted as a differential diagnosis. Appendix: No evidence of appendicitis. Intraperitoneal space: Pneumoperitoneum and trace free fluid. Vasculature: Extensive amount of calcified and non-calcified arterial atherosclerosis. No abdominal aortic aneurysm. Lymph nodes: No enlarged lymph nodes by CT criteria. Urinary bladder: Within normal limits. Reproductive: Nonspecific prostate calcifications, unchanged. Bones/joints: No acute osseous abnormality. Soft tissues: Unremarkable. IMPRESSION: 1. Pneumoperitoneum and trace free fluid, concerning for viscus perforation/leak. 2. Percutaneous gastrostomy tube in place with approximately 4 mm space between the anterior gastric wall and anterior abdominal fascia, suspect most likely source of free air. Gastrostomy tube balloon appears either half inflated or cylindrical in shape with an estimated 5 cc volume. Recommend confirming that the balloon is fully insufflated prior to attempting to close/tighten gap between gastric wall and abdominal wall by confirming appropriate balloon volume per agriculture extension specialist. If balloon requires more volume, consider adding additional diluted intravenous contrast and re-evaluate balloon insufflation with follow-up radiograph prior to manipulation. 3. Punctate non-obstructing stone in the upper pole the right kidney.Additional non-acute ancillary findings are detailed above.
[2021-09-04 19:00] VITALS: BP 109/90; PULSE 65; RESP 20
--- NOTE | 2021-09-04 19:57 | HMH.EDGENADL ---
ED Disposition Condition on Discharge: Fair - Critical Care Critical Care Time: No <Abdulaziz Carmona - Last Filed: 09/04/21 19:57> <Lance Dunlap - Last Filed: 09/05/21 02:27> Clinical Impression: UGIB (upper gastrointestinal bleed), SBO (small bowel obstruction) Vomiting Qualifiers: Vomiting type: unspecified Nausea presence: unspecified Qualified Code(s): R11.10 - Vomiting, unspecified Feeding tube dysfunction Qualifiers: Encounter type: initial encounter Qualified Code(s): T85.598A - Other mechanical complication of other gastrointestinal prosthetic devices, implants and grafts, initial encounter Disposition: Admitted as Observation Attestation: On 09/04/21, the high probability of a clinically significant, sudden or life threatening deterioration of the following system(s) required my full and direct attention, intervention and personal management. The time I documented below is in addition to time spent performing reported procedures but includes the following listed in this critical care notation. Medical Decision Making - Medical Records Medical records reviewed: Yes: I reviewed the patient's medical records. - [place] Inquiry Pt receiving controlled substance: No - Reevaluation(s) Time: 20:00 <Abdulaziz Carmona - Last Filed: 09/04/21 19:57> - Lab Data Lab results reviewed: Yes: I reviewed the patient's lab results. Result diagrams: 09/04/21 20:25 09/04/21 20:25 - Radiology Data #1 Image(s): KUB Image Reviewed: Yes I have reviewed radiologist's interpretation Preliminary Findings: Abnormal (gtube in position) - CT Data CT Scan: Abdomen, Pelvis Time Received: 02:[address] Reviewed: Yes: I have viewed the radiologist's interpretation Preliminary Findings: Abnormal (see report) - Physician Consults Physician Consulted: kerry Reason -: Pt condition <Lance Dunlap - Last Filed: 09/05/21 02:27> Vital Signs: 09/04/21 18:47 Temperature 99.5 F Temperature Source Rectal Pulse Rate [Apical] 71 Respiratory Rate 18 Blood Pressure [Right Arm] 108/88 L Blood Pressure Mean [Right Arm] 94 Blood Pressure Source [Right Arm] Automatic Cuff Blood Pressure Position [Right Arm] Sitting 02 Sat by Pulse Oximetry 98 Oxygen Delivery Method Room Air - Lab Data Lab Results 09/04/21 20:05: Gastric Occult Blood Positive 09/04/21 20:25: WBC 12.5 H D, RBC 4.47 L, Hgb 12.8 L D, Hct 39.4 L, MCV 88.1, MCH 28.7, MCHC 32.6, RDW 14.4, Plt Count 379 D, MPV 8.7, Neut % (Auto) 81.1 H, Lymph % (Auto) 15.0, [place] % (Auto) 2.7, Eos % (Auto) 0.7, Baso % (Auto) 0.5, Neut # (Auto) 10.1 H, Lymph # (Auto) 1.9, [place] # (Auto) 0.3, Eos # (Auto) 0.1, Baso # (Auto) 0.1 09/04/21 20:25: Sodium 134 L, Potassium 4.5, Chloride 98, Carbon Dioxide 27, Anion Gap 13.5, BUN 12 D, Creatinine 1.00 D, Estimated Creat Clear 38, Estimated GFR 72, Est GFR ( Amer) 88 D, Glucose 137 H D, Calcium 8.4, Total Bilirubin 0.4, AST 51, ALT 33, Alkaline Phosphatase 107, Total Protein 5.8 L, Albumin 3.1 L, Globulin 2.7, Albumin/Globulin Ratio 1.1, Amylase 117 H 09/04/21 20:25: C-Reactive Protein 15.8 H, Lipase 88 09/04/21 20:25: ESR 46 H 09/04/21 20:25: Procalcitonin 0.167 Orders (Tests/Meds): ED MEDICATIONS Generic Name Dose Route Start Last Admin Trade Name Freq PRN Reason Stop Dose Admin Sodium Chloride 1,000 mls @ 999 mls/hr 09/04/21 19:00 09/04/21 19:57 Sod Chlor 0.9% 1000ml Bag IV 09/04/21 20:00 999 mls/hr .Q1H1M KEVYN Administration Discontinued Medications Generic Name Dose Route Start Last Admin Trade Name Freq PRN Reason Stop Dose Admin Pantoprazole Sodium 80 mg/ 100 mls @ 100 mls/hr 09/04/21 21:17 09/04/21 21:22 Sodium Chloride IV 09/04/21 22:16 100 mls/hr ONCE ONE Administration Ondansetron HCl 4 mg 09/04/21 18:55 09/04/21 19:57 Ondansetron 4mg/2ml Vial IV 09/04/21 18:56 4 mg ONCE ONE Administration ORDERS Category Date Time Status Chest XR -- portable [XR c
[2021-09-04 20:20] VITALS: BP 128/80; PULSE 65
[2021-09-04 20:31] VITALS: BP 118/77; PULSE 67; RESP 22
[2021-09-04 20:43] LABS: Alkaline Phosphatase 107 U/L (38-126); Amylase 117 U/L (30-110); Bilirubin,Total 0.4 mg/dl (0.2-1.3); Blood Urea Nitrogen 12 mg/dl (9-20); Carbon Dioxide 27 mmol/L (22.0-30.0); Creatinine Clearance Estimated 38 mL/min (50-200); Estimated Glomerular Filt Rate 72 ml/min (>60); GFR (African American) 88 ML/MIN (>60)
[2021-09-04 20:44] LABS: Basophils # 0.1 K/mm3 (0-0.2); Eosinophils # 0.1 K/mm3 (0.0-0.4); Red Cell Distribution Width 14.4 % (11.5-17.5)
[2021-09-04 20:48] LABS: Occult Blood,Gastric Fluid Positive (Negative)
[2021-09-04 20:52] LABS: Basophils % 0.5 % (0.1-2.0); Eosinophils % 0.7 % (0.1-12.0); Hematocrit 39.4 % (42.0-52.0); Lymphocytes # 1.9 K/mm3 (0.7-4.5); Mean Corpuscular HGB Conc 32.6 g/dL (31.8-35.4); Mean Corpuscular Hemoglobin 28.7 pg (27.0-31.2); Mean Corpuscular Volume 88.1 fl (80-94); Mean Platelet Volume 8.7 fl (7.4-10.4); Monocytes # 0.3 K/mm3 (0.1-1.0); Monocytes % 2.7 % (1.7-9.3); Neutrophils # 10.1 K/mm3 (1.8-7.8); Neutrophils % 81.1 % (37.0-80.0); Platelet Count 379 K/mm3 (142-424); Red Blood Count 4.47 M/mm3 (4.60-6.20); White Blood Count 12.5 K/mm3 (4.8-10.8)
[2021-09-04 20:57] LABS: Hemoglobin 12.8 g/dL (14.1-18.0)
[2021-09-04 21:10] LABS: Chloride 98 mmol/L (98-107); Sodium 134 mmol/L (136-145)
[2021-09-04 21:11] LABS: Anion Gap 13.5 mEq/L (5-15); Potassium 4.5 mmoL/L (3.5-5.1)
[2021-09-04 21:13] LABS: Alanine Aminotransferase 33 U/L (12-78); Albumin Level 3.1 g/dl (3.5-5.0); Albumin/Globulin Ratio 1.1 (1.1-1.8); Aspartate Amino Transferase 51 U/L (17-59); Calcium 8.4 mg/dl (8.4-10.2); Globulin 2.7 g/dL (1.3-3.2); Glucose 137 mg/dl (74-100); Total Protein,Serum 5.8 g/dl (6.3-8.2)
[2021-09-04 21:29] LABS: Lipase 88 U/L (23-300)
[2021-09-04 21:34] LABS: C-Reactive Protein 15.8 mg/L (0-4)
[2021-09-04 21:52] LABS: Erythrocyte Sedimentation Rate 46 mm/hr (0-20)
--- NOTE | 2021-09-04 21:58 | XR_ITS ---
PROCEDURE INFORMATION: Exam: XR Abdomen Exam date and time: 09/04/2021 9:58 PM Age: 76 years old Clinical indication: Device placement; Gi device; Peg tube; Additional info: Gi bleed TECHNIQUE: Imaging protocol: XR of the abdomen. Views: Frontal supine view of the abdomen. 1 View. COMPARISON: CT ABDOMEN PELVIS WO CON 09/04/2021 7:48 PM FINDINGS: Gastrointestinal tract: Oral contrast material seen at the tip the gastrostomy tube and pooling in the gastric fundus. Type of gastrostomy tube retention device as either an insufflated balloon-type or other semisolid button/bumper-type retention device cannot be determined. Diffusely dilated small bowel compatible with small bowel obstruction, unchanged. Bones/joints: No acute osseous abnormality. IMPRESSION: 1. Oral contrast material seen at the tip the gastrostomy tube and pooling in the gastric fundus. Findings confirm gastrostomy tube tip to be within the gastric lumen. Type of gastrostomy tube retention device as either an insufflated balloon-type or other semisolid button/bumper-type retention device cannot be determined. If no in-house Interventional Radiologist is available, recommend referring to the specific welder fitter helper's instructions for whichever device is in place or consider Gastroenterology consult. 2. Diffusely dilated small bowel compatible with small bowel obstruction, unchanged.
[2021-09-04 22:02] LABS: Procalcitonin 0.167 ng/mL (0.0-2.0)
[2021-09-05] VITALS (9 sets, daily range): BP systolic 105–157; BP diastolic 59–97; PULSE 76–103; RESP 16–24; TEMP 36.2–37.1; O2SAT 90–100; BMI 18.3
--- NOTE | 2021-09-05 01:54 | XR_ITS ---
PROCEDURE INFORMATION: Exam: XR Chest Exam date and time: 09/05/2021 1:54 AM Age: 76 years old Clinical indication: Shortness of breath; Additional info: Increasing oxygen demands TECHNIQUE: Imaging protocol: XR of the chest. Views: 1 view. COMPARISON: CR XR CHEST PORTABLE 09/01/2021 6:17 AM FINDINGS: Limitations: Examination is limited by patient positioning. Tubes, catheters and devices: Multiple overlying cardiac leads are present. Lungs: Redemonstrated patchy bibasilar airspace opacities, not significantly changed allowing for slight differences in patient positioning. Pleural spaces: Bilateral pleural effusions, similar on the left and improved on the right. Heart/Mediastinum: The cardiomediastinal silhouette appears essentially similar. Vasculature: Calcification of the aortic knob. Bones/joints: Unremarkable. IMPRESSION: 1. No significant interval change two bibasilar lung airspace opacities. 2. Bilateral pleural effusions, unchanged on the left and improved on the right.
--- NOTE | 2021-09-05 02:55 | PC.NURSE ---
Patients son is requesting to be notified with any changes to patients conditions. Phone number is [phone]. Patients son is Clarke Marino.
--- NOTE | 2021-09-05 03:35 | PC.WOUNDNOTE ---
Addendum entered by Sera Olguin RN 09/05/21 03:41: purple discoloration to left toes abrasion to top of right toes pressure area to lateral aspect of left heel abrasions to lateral aspect of right ankle reddened area to left elbow Original Note: excoriation to coccyx abrasions to left christie abrasions to right christie
--- NOTE | 2021-09-05 03:44 | PC.NURSE ---
LATE ENTRY [id number] PT ARRIVED TO FLOOR VIA STRETCHER FROM ED W/STAFF
--- NOTE | 2021-09-05 06:23 | PC.NURSE ---
DR DAVENPORT NOTIFIED OF CONSULT
[2021-09-05 06:58] LABS: Basophils # 0.1 K/mm3 (0-0.2); Basophils % 0.5 % (0.1-2.0); Eosinophils # 0.1 K/mm3 (0.0-0.4); Eosinophils % 1.1 % (0.1-12.0); Hematocrit 35.4 % (42.0-52.0); Lymphocytes # 1.3 K/mm3 (0.7-4.5); Lymphocytes % 12.2 % (10-50); Mean Corpuscular HGB Conc 32.3 g/dL (31.8-35.4); Mean Corpuscular Hemoglobin 28.8 pg (27.0-31.2); Mean Corpuscular Volume 89.3 fl (80-94); Mean Platelet Volume 9.4 fl (7.4-10.4); Monocytes # 0.3 K/mm3 (0.1-1.0); Monocytes % 3.3 % (1.7-9.3); Neutrophils # 8.5 K/mm3 (1.8-7.8); Neutrophils % 82.9 % (37.0-80.0); Platelet Count 293 K/mm3 (142-424); Red Blood Count 3.97 M/mm3 (4.60-6.20); Red Cell Distribution Width 14.3 % (11.5-17.5); White Blood Count 10.3 K/mm3 (4.8-10.8)
--- NOTE | 2021-09-05 07:06 | HMH.GSCON ---
*Admission Date: 09/05/21 *Reason for consult:: Hematemesis; displaced gastrostomy tube *History of present illness: This is a 76-year-old gentleman who was discharged yesterday after hospitalization that included gastrostomy tube placement for feeding difficulty. He developed significant hematemesis and was transported back to the emergency department. The patient's gastrostomy tube was displaced (4 cm versus 2 cm at time of procedure). The tube was repositioned. Review of Systems - Review of Systems Review of systems:: unable to obtain [facility] History Medical History: Reports:: Chronic Obstructive Pulmonary Disease (COPD), Dementia, Hypertension Denies:: Cancer, Diabetes Mellitus Type 1, Diabetes Mellitus Type 2, MRSA, Seizures *Have you ever received a pneumonia vaccine?: Yes *Have you received a flu vaccine this season?: Yes Other Medical History: Reports: Liver Disease. Denies: Blood Transfusion Reaction Laterality Cases: Right: Other Other Surgeries: Yes: No Previous Surgery, Colonoscopy, EGD, Other Amputation: No Fractures: Yes (RIGHT HIP) - *Social History Smoking Status: Former smoker Tobacco Type: cigarettes # Packs/Day (cigarettes): 1 Alcohol Intake: former Alcohol Intake Frequency:: other Substance Use Type: denies use *Occupational Status:: other Housing: house Household Members: friend(s) *Travel in the last 8 weeks: None Family Hx:: Hypertension Meds Home Medications Medication Instructions Recorded Confirmed Type albuterol sulfate 90 mcg/actuation 2 puff INHALATION Q8H PRN #8.5 g 12/28/20 09/04/21 Rx aerosol inhaler multivitamin 1 tab PO DAILY 12/28/20 09/04/21 History acetaminophen 500 mg tablet 500 mg PO Q4H PRN #90 tab 07/16/21 09/04/21 Rx aluminum hydrox-magnesium carb 95 30 ml PO TID PRN #355 ml 07/16/21 09/04/21 Rx mg-358 mg/15 mL oral suspension fluticasone furoate 100 1 inh INHALATION DAILY 07/16/21 09/04/21 History mcg-vilanterol 25 mcg/dose inhalation powder lactulose 10 gram oral packet 30 ml PO DAILY PRN each 07/16/21 09/04/21 History Furosemide [Furosemide 20mg Tab*] 20 mg PO DAILY 08/27/21 09/04/21 History Donepezil HCl [Aricept 10mg 10 mg PO HS 08/28/21 09/04/21 History tablet] Ipratropium/Albuterol Sulfate 3 ml INHALATION Q4HP PRN 08/28/21 09/04/21 History [Duoneb 3mL neb] Memantine HCl 10 mg PO BID 08/28/21 09/04/21 History clindamycin HCL [Clindamycin HCl] 300 mg PO TID 09/04/21 09/04/21 History Allergies Allergy/AdvReac Type Severity Reaction Status Date / Time No Known Allergies Allergy Verified 07/30/21 13:23 Exam Vital signs and Labs for Last 24 Hours: Temp Pulse Resp BP Pulse Ox 98.2 F 101 H 17 117/70 93 L 09/05/21 02:56 09/05/21 04:00 09/05/21 04:00 09/05/21 04:00 09/05/21 04:00 Laboratory Results - last 24 hr 09/04/21 20:05: Gastric Occult Blood Positive 09/04/21 20:25: WBC 12.5 H D, RBC 4.47 L, Hgb 12.8 L D, Hct 39.4 L, MCV 88.1, MCH 28.7, MCHC 32.6, RDW 14.4, Plt Count 379 D, MPV 8.7, Neut % (Auto) 81.1 H, Lymph % (Auto) 15.0, [place] % (Auto) 2.7, Eos % (Auto) 0.7, Baso % (Auto) 0.5, Neut # (Auto) 10.1 H, Lymph # (Auto) 1.9, [place] # (Auto) 0.3, Eos # (Auto) 0.1, Baso # (Auto) 0.1 09/04/21 20:25: Sodium 134 L, Potassium 4.5, Chloride 98, Carbon Dioxide 27, Anion Gap 13.5, BUN 12 D, Creatinine 1.00 D, Estimated Creat Clear 38, Estimated GFR 72, Est GFR ( Amer) 88 D, Glucose 137 H D, Calcium 8.4, Total Bilirubin 0.4, AST 51, ALT 33, Alkaline Phosphatase 107, Total Protein 5.8 L, Albumin 3.1 L, Globulin 2.7, Albumin/Globulin Ratio 1.1, Amylase 117 H 01/05/22 20:25: C-Reactive Protein 15.8 H, Lipase 88 09/04/21 20:25: ESR 46 H 09/04/21 20:25: Procalcitonin 0.167 09/05/21 05:25: WBC 10.3, RBC 3.97 L, Hct 35.4 L, MCV 89.3, MCH 28.8, MCHC 32.3, RDW 14.3, Plt Count 293, MPV 9.4, Neut % (Auto) 82.9 H, Lymph % (Auto) 12.2, [place] % (Auto) 3.3, Eos % (Auto) 1.1, Baso % (Auto) 0.5, Neut # (Auto) 8.5 H, Lymph # (Auto) 1.3, [place]
--- NOTE | 2021-09-05 07:15 | HMH.PHAVTE ---
[facility] Pharmacy VTE Monitoring - Patient Demographics Admission date: 09/05/21 Report Date: 09/05/21 Time: 07:15 Allergies/Adverse Reactions: Patient Allergies No Known Allergies Allergy (Verified 07/30/21 13:23) Height: 1.57 m Weight: 45.359 kg Patient Problems: Current Active Problems Vomiting (Acute) UGIB (upper gastrointestinal bleed) (Acute) Feeding tube dysfunction (Acute) SBO (small bowel obstruction) (Acute) - VTE Risk Labs: VTE Related Lab Results Hgb 12.8 g/dL (14.1-18.0) L D 09/04/21 20:25 Hct 35.4 % (42.0-52.0) L 09/05/21 05:25 Plt Count 293 K/mm3 (142-424) 09/05/21 05:25 BUN 12 mg/dl (9-20) D 09/04/21 20:25 Creatinine 1.00 mg/dl (0.66-1.25) D 09/04/21 20:25 Estimated Creat Clear 38 mL/min (50-200) 09/04/21 20:25 Was VTE Risk Assessment Performed: Yes VTE Score: 4 VTE Risk Level: Low Risk Clinical Trial Participant: No - Prophylaxis VTE Prophylaxis Ordered?: Yes Types of VTE Prophylaxis: TEDS Knee High
[2021-09-05 07:26] LABS: Hemoglobin 11.3 g/dL (14.1-18.0)
--- NOTE | 2021-09-05 07:27 | SW/DCPLANNER ---
PATIENT READMITTED BACK INTO THE HOSPITAL AFTER DISCHARGING TO HIS BED AT [place] YESTERDAY. PATIENT EVIDENTLY HAD SOME VOMITING AND IT WAS A COFFEE GROUND COLOR AND NURSE DID NOT FEEL PED TUBE WAS IN THE RIGHT PLACE, SO THEREFORE AN AMBULANCE WAS CALLED AND BROUGHT BACK INTO THE HOSPITAL TO BE CHECKED.. WAITING TO SEE WHAT SAYS WHEN HE ROUNDS THIS AM...
[2021-09-05 07:38] LABS: Anion Gap 11.9 mEq/L (5-15); Blood Urea Nitrogen 19 mg/dl (9-20); Carbon Dioxide 24 mmol/L (22.0-30.0); Chloride 101 mmol/L (98-107); Creatinine Clearance Estimated 36 mL/min (50-200); Estimated Glomerular Filt Rate 65 ml/min (>60); GFR (African American) 79 ML/MIN (>60); Glucose 99 mg/dl (74-100); Potassium 4.9 mmoL/L (3.5-5.1); Sodium 132 mmol/L (136-145)
--- NOTE | 2021-09-05 07:39 | HMH.PHAINT ---
verified home medication list using list from previous discharge on 09/04/21
--- NOTE | 2021-09-05 10:16 | XR_ITS ---
FINAL REPORT CLINICAL HISTORY: . check PEG placement FINDINGS: A single view of the abdomen was obtained with a 5 minute delayed view. Gastrostomy feeding tube appears to be intraluminal. The 5 minute delayed image demonstrates opacification of the proximal small bowel. However, there is some unusual density seen in the pelvis of uncertain significance. Some leakage of contrast cannot be excluded. IMPRESSION: Some unusual density seen in the pelvis of uncertain significance, some leakage of contrast cannot be excluded. Recommend CT of abdomen and pelvis to assess for possible extraluminal contrast in the pelvis. convenience recycle center tech [place]ell, was notified of these findings at the time of interpretation. Reviewed, Interpreted and Dictated by Yeison Lane MD Transcribed by Christi Hurtado Authenticated by Yeison Lane MD on 09/05/2021 01:54:41 PM [facility]
--- NOTE | 2021-09-05 13:17 | HMH.ITSTN ---
> spoke with Charge nurse Gely about this patient. Radiologist called at 1:14pm and stated unusual density in the pelvis, cant exclude contrast leakage, recommend CT ABD/Pel without contrast.
--- NOTE | 2021-09-05 13:21 | CT_ITS ---
FINAL REPORT TECHNIQUE: Axial images through the abdomen and pelvis were performed without contrast. This study was performed with techniques to keep radiation doses as low as reasonably achievable, (ALARA). Individualized dose reduction techniques using automated exposure control or adjustment of mA and/or kV according to the patient's size were employed. CLINICAL HISTORY: follow up after delayed contrast imaging pt was injected with gastro at 10 am today FINDINGS: Contrast was administered via the gastrostomy tube prior to imaging. There are large bilateral pleural effusions. There is bibasilar consolidation. There is moderate amount of free air present likely related to the gastrostomy tube. Contrast appears to be confined entirely to the bowel. There is no definite extravasation of contrast seen. There is a paucity of intra-abdominal fat and diffuse edema throughout the mesenteric fat complicating evaluation of the abdominal contents. IMPRESSION: 1. Free air likely related to the gastrostomy tube. 2. Contrast confined to the bowel with no evidence of contrast extravasation. Reviewed, Interpreted and Dictated by Yeison Lane MD Transcribed by Bernice Foley Authenticated by Yeison Lane MD on 09/05/2021 03:54:05 PM [facility]
--- NOTE | 2021-09-05 13:22 | PC.NURSE ---
Addendum entered by Gely Van RN 09/05/21 13:24: dr payne stated it was okay to order the ct. Original Note: radiology called about patient delayed contrast imaging studies. reported to dr payne the results of unusual densities and cant exclude contrast leakage. the radiologist recommended ct abd and pelvis with out contrast.
--- NOTE | 2021-09-05 13:25 | HMH.HP ---
*Admission Date: 09/05/21 *Chief complaint: vomiting *History of present illness: 76-year-old male presented to the emergency department with some vomiting from [facility]. Staff at [facility] state they had not started tube feedings yet they were working with dinkey engine firer on tube feedings rate. staff at [facility] state they entered his room he was projectile vomiting coffee ground emesis. Patient was discharged from [facility] yesterday, Patient had G-tube placed secondary to failure to thrive. He has been n.p.o. since discharge. Pt admitted for surgery consult. [facility] History I have reviewed the patient's past medical history: Yes Medical History: Reports:: Chronic Obstructive Pulmonary Disease (COPD), Dementia, Hypertension Denies:: Cancer, Diabetes Mellitus Type 1, Diabetes Mellitus Type 2, MRSA, Seizures *Have you ever received a pneumonia vaccine?: Yes *Have you received a flu vaccine this season?: Yes Other Medical History: Reports: Liver Disease. Denies: Blood Transfusion Reaction Laterality Cases: Right: Other Other Surgeries: Yes: No Previous Surgery, Colonoscopy, EGD, Other Amputation: No Fractures: Yes (RIGHT HIP) - *Social History Smoking Status: Former smoker Tobacco Type: cigarettes # Packs/Day (cigarettes): 1 Alcohol Intake: former Alcohol Intake Frequency:: other Substance Use Type: denies use *Occupational Status:: other Housing: house Household Members: friend(s) *Travel in the last 8 weeks: None Family Hx:: Hypertension Review of Systems - Review of Systems Review of systems:: pertinent systems reviewed and negative unless documented below - Constitutional Denies body ache(s), Denies fatigue - Eyes Denies blurry vision - ENT Denies ear pain - *Cardiovascular Denies chest pain - *Respiratory Denies change in phlegm color - *Gastrointestinal Reports vomiting, Denies abdominal pain - *Genitourinary Denies urinary frequency - *Musculoskeletal Denies abnormal walking - Integumentary/Breasts Denies hair loss - *Neurologic Denies memory loss - Psychiatric Denies abnormal sleep pattern - Endocrine Denies cold intolerance - Hematologic/Lymphatic Denies easy bleeding - Allergic/Immunologic Denies GI upset with certain foods Meds Home Medications Medication Instructions Recorded Confirmed Type albuterol sulfate 90 mcg/actuation 2 puff INHALATION Q8H PRN #8.5 g 12/28/20 09/04/21 Rx aerosol inhaler multivitamin 1 tab PO DAILY 12/28/20 09/04/21 History acetaminophen 500 mg tablet 500 mg PO Q4H PRN #90 tab 07/16/21 09/04/21 Rx aluminum hydrox-magnesium carb 95 30 ml PO TID PRN #355 ml 07/16/21 09/04/21 Rx mg-358 mg/15 mL oral suspension fluticasone furoate 100 1 inh INHALATION DAILY 07/16/21 09/04/21 History mcg-vilanterol 25 mcg/dose inhalation powder lactulose 10 gram oral packet 30 ml PO DAILY PRN each 07/16/21 09/04/21 History Furosemide [Furosemide 20mg Tab*] 20 mg PO DAILY 08/27/21 09/04/21 History Donepezil HCl [Aricept 10mg 10 mg PO HS 08/28/21 09/04/21 History tablet] Ipratropium/Albuterol Sulfate 3 ml INHALATION Q4HP PRN 08/28/21 09/04/21 History [Duoneb 3mL neb] Memantine HCl 10 mg PO BID 08/28/21 09/04/21 History clindamycin HCL [Clindamycin HCl] 300 mg PO TID 09/04/21 09/04/21 History Allergies Allergy/AdvReac Type Severity Reaction Status Date / Time No Known Allergies Allergy Verified 07/30/21 13:23 Exam Vital signs and Labs for Last 24 Hours: Temp Pulse Resp BP Pulse Ox 98.8 F 85 19 125/72 91 L 09/05/21 12:00 09/05/21 12:00 09/05/21 12:00 09/05/21 12:00 09/05/21 12:00 Laboratory Results - last 24 hr 09/04/21 20:05: Gastric Occult Blood Positive 09/04/21 20:25: WBC 12.5 H D, RBC 4.47 L, Hgb 12.8 L D, Hct 39.4 L, MCV 88.1, MCH 28.7, MCHC 32.6, RDW 14.4, Plt Count 379 D, MPV 8.7, Neut % (Auto) 81.1 H, Lymph % (Auto) 15.0, [place] % (Auto) 2.7, Eos % (Auto) 0.7, Baso % (Auto) 0.5, Neut # (Auto)
--- NOTE | 2021-09-05 14:14 | DIET.NUTRFU ---
RD checked in with nursing, radiology completed abdominal X-ray with some contrast leakage, CT scan recommended. Unable to use PEG at this time. NaCl in place for hydration.
--- NOTE | 2021-09-05 14:42 | XR_ITS ---
FINAL REPORT CLINICAL HISTORY: hip pain FINDINGS: LEFT HIP FINDINGS: 2 views show no evidence of an acute, displaced fracture or dislocation. The hip joint space is preserved. The femoral heads have a normal smooth contour. There are moderate vascular calcifications in the iliac vessels and left common femoral artery. Soft tissues are unremarkable. IMPRESSION: No acute bony abnormality. Reviewed, Interpreted and Dictated by Yeison Lane MD Transcribed by Bernice Foley Authenticated by Yeison Lane MD on 09/05/2021 03:53:57 PM [facility]
[2021-09-06] VITALS: BP 113/66; PULSE 87; RESP 17; TEMP 36.9; O2SAT 99
--- NOTE | 2021-09-06 03:55 | PC.NURSE ---
pt rested well most of the night, pt remain NPO. 02 at 4 L pnc w/ 02 sats at 98-99%, pt w/dementia and will respond to his name, mittens in place to prevent patient from pulling at oxygen, iv tubing and peg tube, VSS
[2021-09-06 04:00] VITALS: BP 134/65; PULSE 93; RESP 16; TEMP 36.9; O2SAT 95
[2021-09-06 05:10] VITALS: BMI 18.3
--- NOTE | 2021-09-06 06:22 | HMH.GSPN ---
Subjective Narrative: No changes per nursing Progress Note: A&P (1) Feeding tube dysfunction Status: Acute Assessment and plan: Percutaneous endoscopic gastrostomy tube appears to be in good position currently. No obvious leak or displacement noted on radiographic evaluation yesterday. Follow-up morning hemoglobin If morning hemoglobin stable tube feeds can be restarted (2) UGIB (upper gastrointestinal bleed) Status: Acute Exam Vital signs and Labs for Last 24 Hours: Temp Pulse Resp BP Pulse Ox 98.5 F 93 H 16 134/65 95 09/06/21 04:00 09/06/21 04:00 09/06/21 04:00 09/06/21 04:00 09/06/21 04:00 Laboratory Results - last 24 hr 09/05/21 05:25: Sodium 132 L, Potassium 4.9, Chloride 101, Carbon Dioxide 24, Anion Gap 11.9, BUN 19 D, Creatinine 1.10, Estimated Creat Clear 36, Estimated GFR 65, Est GFR ( Amer) 79, Glucose 99 D, Calcium 8.0 L 09/05/21 05:25: WBC 10.3, RBC 3.97 L, Hgb 11.3 L D, Hct 35.4 L, MCV 89.3, MCH 28.8, MCHC 32.3, RDW 14.3, Plt Count 293, MPV 9.4, Neut % (Auto) 82.9 H, Lymph % (Auto) 12.2, [place] % (Auto) 3.3, Eos % (Auto) 1.1, Baso % (Auto) 0.5, Neut # (Auto) 8.5 H, Lymph # (Auto) 1.3, [place] # (Auto) 0.3, Eos # (Auto) 0.1, Baso # (Auto) 0.1 I & O for Last 24 hours: Intake & Output 09/03/21 09/04/21 09/05/21 09/06/21 11:59 11:59 11:59 11:59 Intake Total 2440 / 2440 Balance 2440 / 2440 Weight 100 lb 99 lb 12.8 oz - Constitutional no acute distress - *Routine Abdominal Exam Comments: PEG in good position...rotates easily.
[2021-09-06 07:03] LABS: Basophils % 0.4 % (0.1-2.0); Eosinophils # 0.1 K/mm3 (0.0-0.4); Eosinophils % 1.1 % (0.1-12.0); Hematocrit 33.6 % (42.0-52.0); Hemoglobin 10.6 g/dL (14.1-18.0); Lymphocytes # 1.7 K/mm3 (0.7-4.5); Lymphocytes % 20.2 % (10-50); Mean Corpuscular HGB Conc 31.6 g/dL (31.8-35.4); Mean Corpuscular Hemoglobin 28.4 pg (27.0-31.2); Mean Corpuscular Volume 89.7 fl (80-94); Mean Platelet Volume 8.6 fl (7.4-10.4); Monocytes # 0.3 K/mm3 (0.1-1.0); Monocytes % 3.1 % (1.7-9.3); Neutrophils # 6.5 K/mm3 (1.8-7.8); Neutrophils % 75.2 % (37.0-80.0); Platelet Count 316 K/mm3 (142-424); Red Blood Count 3.74 M/mm3 (4.60-6.20); Red Cell Distribution Width 14.3 % (11.5-17.5); White Blood Count 8.6 K/mm3 (4.8-10.8)
[2021-09-06 07:16] LABS: Anion Gap 11.9 mEq/L (5-15); Blood Urea Nitrogen 21 mg/dl (9-20); Calcium 7.9 mg/dl (8.4-10.2); Carbon Dioxide 23 mmol/L (22.0-30.0); Chloride 108 mmol/L (98-107); Creatinine Clearance Estimated 40 mL/min (50-200); Estimated Glomerular Filt Rate 72 ml/min (>60); GFR (African American) 88 ML/MIN (>60); Glucose 73 mg/dl (74-100); Potassium 3.9 mmoL/L (3.5-5.1); Sodium 139 mmol/L (136-145)
[2021-09-06 07:19] VITALS: BP 124/72; PULSE 64; RESP 16; TEMP 36.7; O2SAT 95
--- NOTE | 2021-09-06 09:09 | DIET.NUTRFU ---
CT scan indicated no leakage. Ready to start TF today and possible discharge today. intermediate wants to switch to bolus. PEG was just placed and only used for short period of time, need to determine tolerance prior to switching to bolus. Start Jevity 1.2 at 20ml with goal rate of 40ml/hr ATC providing 920ml/1104kcal and 59gm protein with 756ml free water plus a flush of 150 Q6H providing 600ml/day with total fluid of 1356ml/day. CBW is 45kg, this will meet 100% of needs. Labs on 09/06 Na 139, K 3.9, BUN 21, Cr 1.0 glucose 73.
--- NOTE | 2021-09-06 10:25 | PC.NURSE ---
Addendum entered by Natalie Barrios RN 09/06/21 15:06: RESIDUAL RECHECKED AT 1430 WITH 35 ML'S. PT HAD 74 ML'S OF FEEDINGS TOTAL. REPORT WAS CALLED TO [facility]. ABDOMINAL BINDER IN PLACE. DRESSINGS APPLIED TO BUTTOCKS AND LT HEEL. ORAL CARE PROVIDED. Addendum entered by Natalie Barrios RN 09/06/21 12:32: RESIDUAL CHECKED AT 1220 WITH 45 ML'S. PT HAD ONLY 52 ML'S OF FEEDINGS TOTAL. NOTIFIED PCP AND SCRAP DEALER. RATE CONTINUES AT 20 ML'S. WILL CHECK RESIDUAL AGAIN AT 1430. Original Note: PT IS RESTING IN BED. ALERT TO SELF ONLY. WHEN PT ATTEMPTS TO TALK SPEECH IS VERY MUMBLED AND DIFFICULT TO UNDERSTAND. UNABLE TO FOLLOW COMMANDS. TUBE FEEDINGS STARTED AT 1015 THIS AM AT 20ML'S/HR. PT IS POSITIONED ON HIS LT SIDE AT A 30 DEGREE ANGLE. LUNG SOUNDS CLEAR. ABDOMEN SOFT/TENDER WITH HYPOACTIVE BOWEL SOUNDS. SCATTERED ABRASION NOTED TO BLE. DISCOLORATION NOTED TO THE LT TOES. REDNESS NOTED TO BUTTOCKS. WILL CONTINUE TO MONITOR.
[2021-09-06 10:55] VITALS: BP 123/66; PULSE 86; RESP 18; TEMP 36.7; O2SAT 94
[2021-09-06 11:21] VITALS: BMI 18.2
--- NOTE | 2021-09-06 12:30 | HMH.DCSUM ---
General - General Admission date:: 09/05/21 Discharge date: 09/06/21 HPI HPI: 76-year-old male presented to the emergency department with some vomiting from [facility]. Staff at [facility] state they had not started tube feedings yet they were working with ammonia print operator on tube feedings rate. staff at [facility] state they entered his room he was projectile vomiting coffee ground emesis. Patient was discharged from [facility] yesterday, Patient had G-tube placed secondary to failure to thrive. He has been n.p.o. since discharge. Pt admitted for surgery consult. Hospital Course Hospital Course: Laboratory Tests 09/04/21 09/04/21 09/04/21 20:05 20:25 20:25 WBC 12.5 H D RBC 4.47 L Hgb 12.8 L D Hct 39.4 L MCV 88.1 MCH 28.7 MCHC 32.6 RDW 14.4 Plt Count 379 D MPV 8.7 Neut % (Auto) 81.1 H Lymph % (Auto) 15.0 [place] % (Auto) 2.7 Eos % (Auto) 0.7 Baso % (Auto) 0.5 Neut # (Auto) 10.1 H Lymph # (Auto) 1.9 [place] # (Auto) 0.3 Eos # (Auto) 0.1 Baso # (Auto) 0.1 ESR Sodium 134 L Potassium 4.5 Chloride 98 Carbon Dioxide 27 Anion Gap 13.5 BUN 12 D Creatinine 1.00 D Estimated Creat Clear 38 Estimated GFR 72 Est GFR ( Amer) 88 D Glucose 137 H D Calcium 8.4 Total Bilirubin 0.4 AST 51 ALT 33 Alkaline Phosphatase 107 C-Reactive Protein Total Protein 5.8 L Albumin 3.1 L Globulin 2.7 Albumin/Globulin Ratio 1.1 Amylase 117 H Lipase Procalcitonin Gastric Occult Blood Positive 09/04/21 09/04/21 09/04/21 20:25 20:25 20:25 WBC RBC Hgb Hct MCV MCH MCHC RDW Plt Count MPV Neut % (Auto) Lymph % (Auto) [place] % (Auto) Eos % (Auto) Baso % (Auto) Neut # (Auto) Lymph # (Auto) [place] # (Auto) Eos # (Auto) Baso # (Auto) ESR 46 H Sodium Potassium Chloride Carbon Dioxide Anion Gap BUN Creatinine Estimated Creat Clear Estimated GFR Est GFR ( Amer) Glucose Calcium Total Bilirubin AST ALT Alkaline Phosphatase C-Reactive Protein 15.8 H Total Protein Albumin Globulin Albumin/Globulin Ratio Amylase Lipase 88 Procalcitonin 0.167 Gastric Occult Blood 09/05/21 09/05/21 09/06/21 05:25 05:25 06:19 WBC 10.3 8.6 RBC 3.97 L 3.74 L Hgb 11.3 L D 10.6 L Hct 35.4 L 33.6 L MCV 89.3 89.7 MCH 28.8 28.4 MCHC 32.3 31.6 L RDW 14.3 14.3 Plt Count 293 316 MPV 9.4 8.6 Neut % (Auto) 82.9 H 75.2 Lymph % (Auto) 12.2 20.2 [place] % (Auto) 3.3 3.1 Eos % (Auto) 1.1 1.1 Baso % (Auto) 0.5 0.4 Neut # (Auto) 8.5 H 6.5 Lymph # (Auto) 1.3 1.7 [place] # (Auto) 0.3 0.3 Eos # (Auto) 0.1 0.1 Baso # (Auto) 0.1 0.0 ESR Sodium 132 L Potassium 4.9 Chloride 101 Carbon Dioxide 24 Anion Gap 11.9 BUN 19 D Creatinine 1.10 Estimated Creat Clear 36 Estimated GFR 65 Est GFR ( Amer) 79 Glucose 99 D Calcium 8.0 L Total Bilirubin AST ALT Alkaline Phosphatase C-Reactive Protein Total Protein Albumin Globulin Albumin/Globulin Ratio Amylase Lipase Procalcitonin Gastric Occult Blood 09/06/21 06:19 WBC RBC Hgb Hct MCV MCH MCHC RDW Plt Count MPV Neut % (Auto) Lymph % (Auto) [place] % (Auto) Eos % (Auto) Baso % (Auto) Neut # (Auto) Lymph # (Auto) [place] # (Auto) Eos # (Auto) Baso # (Auto) ESR Sodium 139 Potassium 3.9 D Chloride 108 H Carbon Dioxide 23 Anion Gap 11.9 BUN 21 H Creatinine 1.00 Estimated Creat Clear 40 Estimated GFR 72 Est GFR ( Amer) 88 Glucose 73 L Calcium 7.9 L Total Bilirubin AST ALT Alkaline Phosphatase C-Reactive Protein Total Protein Albumin Globulin Albumin/Globulin Ratio Amylase Lipase Procalci
[2021-09-06 15:35] VITALS: BP 147/87; PULSE 99; RESP 18; TEMP 36.8; O2SAT 98
--- NOTE | 2021-09-06 15:56 | PC.WOUNDNOTE ---
abrasions to right toes discoloration noted to left toes abrasions noted to lt christie mild redness noted to the buttocks
== END 2021-09-06 17:43 ==
LOC: ER 21:47 → 2ND 09-05 02:27
PROVIDERS: Nurse Practitioner Family; Admitting Provider Emergency Medicine; Emergency Provider Emergency Medicine; PCP Emergency Medicine; Visit Provider Emergency Medicine
DX: T85.598A Other mechanical complication of other gastrointestinal prosthetic devices, implants and grafts, initial encounter (principal); K92.2 Gastrointestinal hemorrhage, unspecified; R62.7 Adult failure to thrive; Z68.1 Body mass index [BMI] 19.9 or less, adult; R64 Cachexia; I10 Essential (primary) hypertension; J44.9 Chronic obstructive pulmonary disease, unspecified
CPT/HCPCS: G0378; 36415; 71045; 73502; 74018; 74176; 80048; 80053; 82150; 82272; 83690; 84145; 85025; 85651; 86140; 96365; 96375; 99284; G0328; J2405

== ENCOUNTER 2021-09-23 23:19 | Emergency (ER) | payer MEDICARE, MEDICAID, SELFPAY ==
[2021-09-23 23:16] VITALS: BP 102/72; PULSE 83; RESP 18; TEMP 36.5; O2SAT 98; BMI 15.0
--- NOTE | 2021-09-23 23:43 | XR_ITS ---
PROCEDURE INFORMATION: Exam: XR Chest Exam date and time: 09/23/2021 11:43 PM Age: 76 years old Clinical indication: Other: Low 02 sats; Additional info: Low o2 sats TECHNIQUE: Imaging protocol: XR of the chest. Views: 1 view. Total images: 1 COMPARISON: CR XR CHEST PORTABLE 09/05/2021 2:00 AM FINDINGS: Lungs: Pulmonary hyperlucency suspicious for COPD/emphysematous changes. Pulmonary vasculature grossly normal. Airspace disease in the lung bases probably represents compressive atelectasis secondary to basilar effusions although cannot exclude basilar pneumonia radiographically. Pleural spaces: Moderate basilar pleural effusions bilaterally. No pneumothorax. Heart/Mediastinum: Heart size normal. No tracheal/mediastinal shift. Vasculature: The aorta demonstrates moderate ectasia/tortuosity and moderate calcific atherosclerosis. Bones/joints: No acute osseous abnormalities are identified. Osteopenia. IMPRESSION: 1. Moderate bilateral pleural effusions with adjacent basilar airspace disease which could represent compressive atelectasis or pneumonia. 2. Evidence of underlying COPD/emphysematous changes.
[2021-09-23 23:50] LABS: Basophils # 0.1 K/mm3 (0-0.2); Basophils % 0.8 % (0.1-2.0); Eosinophils # 0.1 K/mm3 (0.0-0.4); Eosinophils % 1.2 % (0.1-12.0); Hematocrit 32.8 % (42.0-52.0); Lymphocytes # 2.3 K/mm3 (0.7-4.5); Lymphocytes % 26.6 % (10-50); Mean Corpuscular HGB Conc 30.5 g/dL (31.8-35.4); Mean Corpuscular Hemoglobin 27.9 pg (27.0-31.2); Mean Corpuscular Volume 91.4 fl (80-94); Mean Platelet Volume 8.5 fl (7.4-10.4); Monocytes # 0.2 K/mm3 (0.1-1.0); Monocytes % 2.6 % (1.7-9.3); Neutrophils % 68.7 % (37.0-80.0); Platelet Count 348 K/mm3 (142-424); Red Blood Count 3.58 M/mm3 (4.60-6.20); Red Cell Distribution Width 15.3 % (11.5-17.5); White Blood Count 8.8 K/mm3 (4.8-10.8)
[2021-09-23 23:54] LABS: Alanine Aminotransferase 37 U/L (12-78); Albumin Level 2.9 g/dl (3.5-5.0); Albumin/Globulin Ratio 1.2 (1.1-1.8); Alkaline Phosphatase 94 U/L (38-126); Anion Gap 9.3 mEq/L (5-15); Aspartate Amino Transferase 59 U/L (17-59); Bilirubin,Total 0.3 mg/dl (0.2-1.3); Blood Urea Nitrogen 51 mg/dl (9-20); Calcium 8.4 mg/dl (8.4-10.2); Carbon Dioxide 29 mmol/L (22.0-30.0); Chloride 97 mmol/L (98-107); Creatinine Clearance Estimated 36 mL/min (50-200); Estimated Glomerular Filt Rate 94 ml/min (>60); GFR (African American) 113 ML/MIN (>60); Globulin 2.4 g/dL (1.3-3.2); Glucose 105 mg/dl (74-100); Potassium 4.3 mmoL/L (3.5-5.1); Sodium 131 mmol/L (136-145); Total Protein,Serum 5.3 g/dl (6.3-8.2)
[2021-09-23 23:59] LABS: C-Reactive Protein 34.8 mg/L (0-4)
[2021-09-24] VITALS: BP 108/67; PULSE 75; RESP 18; O2SAT 98
[2021-09-24 00:13] LABS: Procalcitonin 0.142 ng/mL (0.0-2.0)
[2021-09-24 00:30] VITALS: BP 90/58; PULSE 69; O2SAT 98
[2021-09-24 00:39] LABS: Erythrocyte Sedimentation Rate 50 mm/hr (0-20)
[2021-09-24 01:00] VITALS: BP 104/63; PULSE 71; O2SAT 95
--- NOTE | 2021-09-24 01:26 | [facility]H.EDSOB ---
ED Disposition Clinical Impression: COPD (chronic obstructive pulmonary disease) Qualifiers: COPD type: COPD with acute exacerbation Qualified Code(s): J44.1 - Chronic obstructive pulmonary disease with (acute) exacerbation Disposition: Home, Self-Care Condition on Discharge: Fair Instructions: DI for Chronic Obstructive Pulmonary Disease Additional Instructions: fluids and see pcp for follow up Referrals: Lance Dunlap MD [Primary Care Provider] - - Critical Care Critical Care Time: No Attestation: On 09/23/21, the high probability of a clinically significant, sudden or life threatening deterioration of the following system(s) required my full and direct attention, intervention and personal management. The time I documented below is in addition to time spent performing reported procedures but includes the following listed in this critical care notation. Medical Decision Making - Medical Records Medical records reviewed: Yes: I reviewed the patient's medical records. - [place] Inquiry Pt receiving controlled substance: No Vital Signs: 09/23/21 23:16 09/24/21 00:00 09/24/21 00:30 Temperature 97.7 F Temperature Source Rectal Pulse Rate 75 69 Pulse Rate [Right Radial] 83 Respiratory Rate 18 18 Blood Pressure 108/67 L 90/58 L Blood Pressure [Right Arm] 102/72 L Blood Pressure Mean 66 Blood Pressure Mean [Right Arm] 82 Blood Pressure Source Automatic Cuff Blood Pressure Source [Right Arm] Automatic Cuff Blood Pressure Position Supine Blood Pressure Position [Right Arm] Sitting 02 Sat by Pulse Oximetry 98 98 98 Oxygen Delivery Method Nasal Cannula Nasal Cannula Nasal Cannula Oxygen Flow Rate (LPM) 3 3 3 09/24/21 01:00 09/24/21 02:00 Temperature Temperature Source Pulse Rate 71 64 Pulse Rate [Right Radial] Respiratory Rate 17 Blood Pressure 104/63 L 106/57 L Blood Pressure [Right Arm] Blood Pressure Mean 67 Blood Pressure Mean [Right Arm] Blood Pressure Source Blood Pressure Source [Right Arm] Blood Pressure Position Blood Pressure Position [Right Arm] 02 Sat by Pulse Oximetry 95 99 Oxygen Delivery Method Nasal Cannula Oxygen Flow Rate (LPM) 3 - Lab Data Lab results reviewed: Yes: I reviewed the patient's lab results. Lab Results 09/23/21 23:30: WBC 8.8, RBC 3.58 L, Hgb 10.0 L, Hct 32.8 L, MCV 91.4, MCH 27.9, MCHC 30.5 L, RDW 15.3, Plt Count 348, MPV 8.5, Neut % (Auto) 68.7, Lymph % (Auto) 26.6, [place] % (Auto) 2.6, Eos % (Auto) 1.2, Baso % (Auto) 0.8, Neut # (Auto) 6.0, Lymph # (Auto) 2.3, [place] # (Auto) 0.2, Eos # (Auto) 0.1, Baso # (Auto) 0.1, ESR 50 H 09/23/21 23:30: Sodium 131 L, Potassium 4.3, Chloride 97 L, Carbon Dioxide 29, Anion Gap 9.3, BUN 51 H, Creatinine 0.80, Estimated Creat Clear 36, Estimated GFR 94, Est GFR ( Amer) 113, Glucose 105 H, Calcium 8.4, Total Bilirubin 0.3, AST 59, ALT 37, Alkaline Phosphatase 94, C-Reactive Protein 34.8 H, Total Protein 5.3 L, Albumin 2.9 L, Globulin 2.4, Albumin/Globulin Ratio 1.2, Procalcitonin 0.142 Result diagrams: 09/23/21 23:30 09/23/21 23:30 - Radiology Data #1 Image(s): Chest Image Reviewed: Yes I have reviewed radiologist's interpretation Preliminary Findings: Abnormal Medical Decision Narrative: has chronic changes and remained stable in ed - has copd Resp/SOB HPI - General Chief Complaint: Recheck/Abnormal Lab/Rx Stated Complaint: Low 02 sats Time Seen by Provider: 09/24/21 00:00 Mode of Arrival: EMS Source of Information: Patient, EMS, Medical Record Limitations: Dementia Description of Symptoms (Recalled from ER Triage Doc. by RN): jail reports O2 sat of 60% on 3LNC that pt wears at all times. Pt is 96% on 3LNC at this time. Pt is baseline A&O. He has hx of dementia. Pt does not appear to be in any acute distress. - History of Present Illness sent from [facility] with low sat at [facility] - pt has g tube Complaint: shortness of breath Severity: moderate Known h
[2021-09-24 02:00] VITALS: BP 106/57; PULSE 64; RESP 17; O2SAT 99
--- NOTE | 2021-09-24 03:19 | PC.NURSE ---
Report called to Tayla at this time.
[2021-09-24 03:44] VITALS: BP 101/64; PULSE 69; RESP 17; TEMP 36.6; O2SAT 98
== END 2021-09-24 03:46 | disposition home or self-care (01) ==
PROVIDERS: Emergency Provider Emergency Medicine; PCP Emergency Medicine
DX: J44.1 Chronic obstructive pulmonary disease with (acute) exacerbation (principal); F03.90 Unspecified dementia, unspecified severity, without behavioral disturbance, psychotic disturbance, mood disturbance, and anxiety; I10 Essential (primary) hypertension; Z87.891 Personal history of nicotine dependence; Z99.81 Dependence on supplemental oxygen
CPT/HCPCS: 36415; 71045; 80053; 84145; 85025; 85651; 86140; 99283

== ENCOUNTER → 2021-10-02 13:55 | Outpatient (CLI) | payer OTHER, MEDICARE, SELFPAY ==
[2021-10-02 15:39] LABS: Chloride 106 mmol/L (98-107); Potassium 4.4 mmoL/L (3.5-5.1); Sodium 137 mmol/L (136-145)
[2021-10-02 15:42] LABS: Anion Gap 8.4 mEq/L (5-15); Blood Urea Nitrogen 79 mg/dl (9-20); Calcium 7.8 mg/dl (8.4-10.2); Carbon Dioxide 27 mmol/L (22.0-30.0); Estimated Glomerular Filt Rate 94 ml/min (>60); GFR (African American) 113 ML/MIN (>60); Glucose 92 mg/dl (74-100)
== END ==
PROVIDERS: Visit Provider Emergency Medicine
DX: I10 Essential (primary) hypertension (principal)
CPT/HCPCS: 80048

== ENCOUNTER → 2021-10-05 22:12 | Outpatient (CLI) | payer OTHER, MEDICARE, MEDICAID, SELFPAY | PROVIDERS: Visit Provider Emergency Medicine | DX: U07.1 COVID-19 (principal) | CPT/HCPCS: C9803; U0003; U0005 ==